=== PATIENT | female | born 1950 | race Hispanic/Latino ===

== ENCOUNTER 2016-10-07 20:30 | Emergency (ER) | payer MEDICARE ==
[2016-10-07 20:30] VITALS: BMI 30.1
[2016-10-07 20:51] VITALS: RESP 18; O2SAT 99
--- NOTE | 2016-10-07 21:48 | ED PDOC ---
Arrival/HPI <Slade Edwards - Last Filed: 10/08/16 01:03> - General Historian: Patient - History of Present Illness Time/Duration: 24 hours Symptom Onset: Gradual Symptom Course: Unchanged Activities at Onset: Rest Context: Home <Francine Garber - Last Filed: 10/08/16 03:35> - General Chief Complaint: Lower Extremity Problem/Injury Time Seen by Provider: 10/07/16 21:39 - History of Present Illness Narrative History of Present Illness (Text): 10/07/16 21:40 Raina Nicholson is a 66 year old female, whose past medical history includes stents in bilateral lower legs, HTN, who presents to the emergency department complaining of a stinging sensation to the bottom of her right foot with associated numbness and tingling to her toes since yesterday. Patient notes that a 2x4 wooden plank fell on her right foot last week but over the past few days the pain in the legs developed. pt c/o or anesthesias to the toes. She is complaining of worsening calf pain and cramping up the leg. Patient states that her pain worsens upon exertion, especially walking. Patient states the pain is still present while at rest but not as severe. Patient states she has scheduled an appointment with Dr. Jeremias Teran for next week. Patient denies any other complaints at this time. (Francine Garber) Past Medical History - Provider Review Nursing Documentation Reviewed: Yes - Travel History Have you recently traveled outside [place] w/in the past 3 mons?: No - Cardiac Hx Cardiac Disorders: Yes Hx [place]: Yes (14 yrs ago) Hx Hypertension: Yes Hx Peripheral Vascular Disease: Yes - Pulmonary Hx Respiratory Disorders: No Hx Chronic Obstructive Pulmonary Disease (COPD): Yes - Neurological Hx Neurological Disorder: No - HEENT Hx HEENT Disorder: No - Renal Hx Renal Disorder: No - Endocrine/Metabolic Hx Endocrine Disorders: Yes Hx Hypothyroidism: Yes - Hematological/Oncological Hx Blood Disorders: No - Integumentary Hx Dermatological Disorder: No - Musculoskeletal/Rheumatological Hx Musculoskeletal Disorders: No Hx Falls: No - Gastrointestinal Hx Gastrointestinal Disorders: No - Genitourinary/Gynecological Hx Genitourinary Disorders: No - Psychiatric Hx Psychophysiologic Disorder: No Hx Depression: No Hx Emotional Abuse: No Hx Physical Abuse: No Hx Substance Use: No - Past Surgical History Past Surgical History: No Previous - Surgical History Hx Angiogram: Yes (RIGHT 2012; BIN 10/02/13; LEFT 01/04/14) Hx Appendectomy: Yes Hx Cardiac Catheterization: Yes Hx Cholecystectomy: Yes (1968) Other/Comment: R femoral pop bypass - Anesthesia Hx Anesthesia: Yes Hx Anesthesia Reactions: No Hx Malignant Hyperthermia: No - Suicidal Assessment Feels Threatened In Home Enviroment: No <Francine Garber - Last Filed: 10/08/16 03:35> Family/Social History - Physician Review Nursing Documentation Reviewed: Yes Family/Social History: No Known Family HX Smoking Status: Heavy Smoker > 10 Cigarettes Daily Hx Alcohol Use: No Hx Substance Use: No <Francine Garber - Last Filed: 10/08/16 03:35> Allergies/Home Meds <Slade Edwards - Last Filed: 10/08/16 01:03> <Francine Garber - Last Filed: 10/08/16 03:35> Allergies/Adverse Reactions: Allergies aspirin [From Soma Compound] Allergy (Verified 10/07/16 20:53) RASH carisoprodol [From Soma Compound] Allergy (Verified 10/07/16 20:53) RASH Home Medications: Home Meds Medication Instructions Recorded Confirmed Celecoxib [CeleBREX] 200 mg PO DAILY 10/07/16 10/07/16 Cilostazol [Pletal] 100 mg PO BID 10/07/16 10/07/16 Clopidogrel [Plavix] 75 mg PO DAILY 10/07/16 10/07/16 Gabapentin [Neurontin] 600 mg PO BID 10/07/16 10/07/16 Levothyroxine Sodium [Unithroid] 100 mcg PO DAILY 10/07/16 10/07/16 Nabumetone [Relafen] 500 mg PO BID 10/07/16 10/07/16 Simvastatin 40 mg PO DAILY 10/07/16 10/07/16 Valsartan [Diovan] 80 mg PO DAILY 10/07/16 10/07/16 Review of Systems - Review of Systems Constitutional: absent: Fevers, Night Sweats Eyes: absent: Vision Changes ENT: absent: Hearing Changes Respiratory: absent: SOB, Cough Cardiovascular: absent: Chest Pain Gastrointestinal: absent: Abdominal Pain Genitourinary Female: absent: Dysuria Musculoskeletal: Arthralgias, Other (stinging to bottom of right foot; numbness and tingling to toes) Skin: absent: Rash Neurological: absent: Headache, Dizziness Psychiatric: absent: Anxiety, Depression <Francine Garber - Last Filed: 10/08/16 03:35> Physical Exam Vital Signs Reviewed: Yes Temperature: Afebrile Blood Pressure: Hypertensive Pulse: Regular Respiratory Rate: Normal Mental Status: Positive for: Alert and Oriented X 3 - Systems Exam Head: Present: Atraumatic Neck: Present: Normal Range of Motion Respiratory/Chest: Present: Clear to Auscultation Cardiovascular: Present: Regular Rate and Rhythm Abdomen: No: Tenderness Lower Extremity: Present: CALF TENDERNESS, NORMAL PULSES, Normal ROM, Tenderness , Capillary Refill < 2 s. No: Swelling, Erythema, Deformity, Temperature Abnormalties, Neurovascularly Intact (no palpable pulses in the feet bilaterally ; no pulses present via doppler.) Neurological: Present: GCS=15, Speech Normal Skin: Present: Warm, Dry, Normal Color. No: Rashes Psychiatric: Present: Alert, Oriented x 3 <Francine Garber - Last Filed: 10/08/16 03:35> Vital Signs Temp Pulse Resp BP Pulse Ox 10/08/16 00:46 98.4 F 70 18 177/81 H 99 10/07/16 22:37 75 18 150/78 99 10/07/16 20:47 98.3 F 71 18 151/74 H 99 Medical Decision Making <Slade Edwards - Last Filed: 10/08/16 01:03> <Francine Garber - Last Filed: 10/08/16 03:35> ED Course and Treatment: 10/08/16 03:18 66yr old female with claudication and rest pain in the right foot that has worsened over the past 2 days. arterial duplex b/l lower legs; foot right; no fracture dr. teran called to discuss arterial duplex results with dr. edwards; pt with bilateral SFA occulsions. pt offered admission to the hospital for interventional treatment. pt states she can stay in the hospital because she needs to do some things at home. I have advised the patient that she should remain in the hospital for admission and treatment of her condition. i have advised the patient of risk of , disability, loss of limb, sepsis, worsening of condition. this was discussed with patient and her brother at bedside. Pt states she understands the risks and will return when she can. Patient has been advised to not leave the emergency room but has decided to go AGAINST MEDICAL ADVICE. The patient possesses capacity to make decisions and has voiced understanding to all my warnings of potential worsening of the condition for which medical care was sought. I have discussed all known and potential risks and consequences to the patient leaving AGAINST MEDICAL ADVICE. Patient is leaving against medical advise. AMA form signed. witness by EMANUEL sebastian. impression; leg pain, arterial occlusion AMA return if you wish to continue your care RETURN IMMEDIATELY IF SYMPTOMS WORSEN,PERSIST OR IF NEW SYMPTOMS DEVELOP. ( Francine Garber) - RAD Interpretation Radiology Orders: 10/07/16 22:20 LOWER EXT ART NON-INV COMPL [US] Stat 10/07/16 23:59 FOOT RIGHT 3 VIEWS ROUTINE [RAD] Stat - PA / OVEN LABORER / Resident Statement MD/DO has reviewed & agrees with the documentation as recorded. MD/DO has examined the patient and agrees with the treatment plan. <Slade Edwards - Last Filed: 10/08/16 01:03> Disposition/Present on Arrival <Slade Edwards - Last Filed: 10/08/16 01:03> - Present on Arrival Any Indicators Present on Arrival: No History of DVT/PE: No History of Uncontrolled Diabetes: No Urinary Catheter: No History of Decub. Ulcer: No History Surgical Site Infection Following: None - Disposition Have Diagnosis and Disposition been Completed?: Yes Disposition Time: 01:15 Patient Plan: Other (ama) <Francine Garber - Last Filed: 10/08/16 03:35> - Disposition Diagnosis: PVD (peripheral vascular disease) with claudication, Leg pain, Arterial occlusion Disposition: AGAINST MEDICAL ADVICE Condition: CRITICAL Referrals: Brook Gee MD [Primary Care Provider] - Follow up with primary Forms: [employer] ([place]ian)
[2016-10-08 00:50] VITALS: BP 177/81; PULSE 70; TEMP 98.4
--- NOTE | 2016-10-08 08:08 | RAD ---
PROCEDURE: Right Foot Radiographs. HISTORY: foot injury COMPARISON: None. FINDINGS: BONES: No evidence of acute displaced fracture. JOINTS: No evidence of dislocation. Mild arthritic changes. SOFT TISSUES: Mild soft tissue swelling. OTHER FINDINGS: None. IMPRESSION: No evidence of acute fracture or dislocation.
--- NOTE | 2016-10-08 08:46 | US ---
PROCEDURE: Lower extremity CIPRIANO exam HISTORY: Peripheral vascular disease with ischemic pain. Previous lower extremity stents. PHYSICIAN(S): Jeremias Talbot MD. FINDINGS: The resting CIPRIANO's are severely abnormal: Right, 0.39 and left, 0.47 The brachial systolic pressures are symmetric. The high thigh pressures and waveforms are relatively normal. There is a 70 mm gradient across the right thigh and a 44 mm gradient across the left thigh. The findings are consistent with bilateral SFA occlusive disease. There is a 31 mm gradient across the left knee. The ankle and metatarsal waveforms are nearly flat. This is consistent with left popliteal, trifurcation, and/ or tibial disease. There is significant right tibial disease. IMPRESSION: 1. Severely abnormal ABIs at rest. 2. Bilateral SFA occlusive disease. 3. Left popliteal, trifurcation, and/ or tibial disease 4. Bilateral tibial disease. 5. If clinically indicated, further evaluation with a CTA, MRA, or conventional arteriogram can be performed.
== END 2016-10-08 01:15 | disposition left against medical advice (07) ==
LOC: ED 20:30
DX: I73.9 Peripheral vascular disease, unspecified (principal); I74.9 Embolism and thrombosis of unspecified artery; M79.604 Pain in right leg

== ENCOUNTER 2016-10-10 15:31 | Inpatient (IN) | payer MEDICARE, OTHER ==
[2016-10-10] MEDS ORDERED: Sodium Chloride 0.9% 500 ML IV STA (16:02)
[2016-10-10 16:23] LABS: VENOUS BLOOD GAS BASE EXCESS 2.5 mmol/L (0.0-2.0)
[2016-10-10 16:37] LABS: ALB/GLOB RATIO 1.2 (1.1-1.8); ALKALINE PHOSPHATASE 113 U/L (38-133); ALT/SGPT 29 U/L (7-56); AST/SGOT 28 U/L (15-39); BILIRUBIN,TOTAL 0.4 mg/dL (0.2-1.3); BLOOD UREA NITROGEN 8 mg/dL (7-21); CALCIUM 9.5 mg/dL (8.4-10.5); CARBON DIOXIDE 26 mmol/L (21-33); CHLORIDE 105 mmol/L (98-107); GFR AFRICAN-AMERICAN > 60; GLUCOSE,RANDOM 127 mg/dL (70-110); POTASSIUM 3.3 mmol/L (3.6-5.0); SODIUM 141 mmol/L (132-148)
[2016-10-10 16:44] LABS: BASO # 0.05 K/mm3 (0.0-2.0); BASO % 0.4 % (0.0-3.0); EOS # 0.2 (0.0-0.7); EOS % 1.7 % (1.5-5.0); GRAN # 9.68 (1.4-6.5); GRAN % 68.4 % (50.0-68.0); HEMATOCRIT 46.5 % (36.0-48.0); LYMPH # 3.2 (1.2-3.4); LYMPH % 22.9 % (22.0-35.0); MEAN CELL VOLUME 92.8 fl (80.0-105.0); MEAN CORPUSCULAR HEMOGLOBIN 32.9 pg (25.0-35.0); MEAN CORPUSCULAR HGB CONC 35.5 g/dl (31.0-37.0); MEAN PLATELET VOLUME 9.5 fl (7.0-11.0); MONO # 0.9 (0.1-0.6); MONO % 6.6 % (1.0-6.0); RED CELL DISTRIBUTION WIDTH 13.1 % (11.5-14.5); WHITE BLOOD COUNT 14.2 10^3/ul (4.5-11.0)
[2016-10-10 16:50] LABS: INR 0.97 (0.93-1.08); PARTIAL THROMBOPLASTIN TIME 28.5 Seconds (23.7-30.8)
--- NOTE | 2016-10-10 17:07 | RAD ---
HISTORY: med clearance. pre op COMPARISON: No prior. FINDINGS: LUNGS: No active pulmonary disease. PLEURA: No significant pleural effusion identified, no pneumothorax apparent. CARDIOVASCULAR: Normal. OSSEOUS STRUCTURES: No significant abnormalities. VISUALIZED UPPER ABDOMEN: Normal. OTHER FINDINGS: None. IMPRESSION: No active disease.
--- NOTE | 2016-10-10 18:01 | ED PDOC ---
Arrival/HPI - General Historian: Patient - History of Present Illness Time/Duration: Other (4 days) Symptom Onset: Gradual Symptom Course: Worsening Quality: Stabbing, Throbbing Severity Level: 7, 10 - General Chief Complaint: Lower Extremity Problem/Injury Time Seen by Provider: 10/10/16 15:55 - History of Present Illness Narrative History of Present Illness (Text): 10/10/16 17:58 66-year-old female presents today with ischemic foot. Patient states she woke up this morning and she noticed there was a change in color in the foot. Patient states she was in the hospital 2 days ago and signed herself out AGAINST MEDICAL ADVICE knowing that there was an arterial occlusion in the right leg. Patient states at that time she could not stay in the hospital because she had to babysit her granddaughter the next day. Patient states she spoke with Dr. Jeremias Teran and scheduled an appointment for tomorrow at 5 PM. Patient states that she had a previous appointment scheduled for but he was able to move the appointment to tomorrow. Patient states the pain has been worsening since her visit and she noticed a discoloration to the toes this morning. c/o of paresthesias. Patient states the pain radiates from the anterior lower leg into the foot. Patient states she has a history of bilateral stents that were placed approximately 3 years ago. Patient states her surgeon has retired since she's been looking for a new surgeon and found Jeremias Teran but has not had her first appointment with him yet. (Francine Garber) Past Medical History - Provider Review Nursing Documentation Reviewed: Yes - Travel History Have you recently traveled outside [place] w/in the past 3 mons?: No - Reproductive Menopause: Yes - Cardiac Hx Cardiac Disorders: Yes Hx [place]: Yes (14 yrs ago) Hx Hypertension: Yes Hx Peripheral Vascular Disease: Yes - Pulmonary Hx Respiratory Disorders: No Hx Chronic Obstructive Pulmonary Disease (COPD): Yes - Neurological Hx Neurological Disorder: No - HEENT Hx HEENT Disorder: No - Renal Hx Renal Disorder: No - Endocrine/Metabolic Hx Endocrine Disorders: Yes Hx Hypothyroidism: Yes - Hematological/Oncological Hx Blood Disorders: No - Integumentary Hx Dermatological Disorder: No - Musculoskeletal/Rheumatological Hx Musculoskeletal Disorders: No Hx Falls: No - Gastrointestinal Hx Gastrointestinal Disorders: No - Genitourinary/Gynecological Hx Genitourinary Disorders: No - Psychiatric Hx Psychophysiologic Disorder: No Hx Depression: No Hx Emotional Abuse: No Hx Physical Abuse: No Hx Substance Use: No - Past Surgical History Past Surgical History: No Previous - Surgical History Hx Angiogram: Yes (RIGHT 2012; BIN 10/02/13; LEFT 01/04/14) Hx Appendectomy: Yes Hx Cardiac Catheterization: Yes Hx Cholecystectomy: Yes (1968) Other/Comment: R femoral pop bypass - Anesthesia Hx Anesthesia: Yes Hx Anesthesia Reactions: No Hx Malignant Hyperthermia: No - Suicidal Assessment Feels Threatened In Home Enviroment: No Family/Social History - Physician Review Nursing Documentation Reviewed: Yes Family/Social History: Unknown Family HX Smoking Status: Heavy Smoker > 10 Cigarettes Daily Hx Alcohol Use: No Hx Substance Use: No Allergies/Home Meds Allergies/Adverse Reactions: Allergies aspirin [From Soma Compound] Allergy (Verified 10/10/16 15:46) RASH carisoprodol [From Soma Compound] Allergy (Verified 10/10/16 15:46) RASH Home Medications: Home Meds Medication Instructions Recorded Confirmed Celecoxib [CeleBREX] 200 mg PO DAILY 10/07/16 10/10/16 Cilostazol [Pletal] 100 mg PO BID 10/07/16 10/10/16 Clopidogrel [Plavix] 75 mg PO DAILY 10/07/16 10/10/16 Gabapentin [Neurontin] 600 mg PO BID 10/07/16 10/10/16 Levothyroxine Sodium [Unithroid] 100 mcg PO DAILY 10/07/16 10/10/16 Nabumetone [Relafen] 500 mg PO BID 10/07/16 10/10/16 Simvastatin 40 mg PO DAILY 10/07/16 10/10/16 Valsartan [Diovan] 80 mg PO DAILY 10/07/16 10/10/16 Review of Systems - Review of Systems Constitutional: absent: Fatigue, Fevers Respiratory: absent: SOB, Cough Cardiovascular: absent: Chest Pain, Palpitations Gastrointestinal: absent: Abdominal Pain, Nausea, Vomiting Musculoskeletal: Arthralgias. absent: Back Pain Skin: absent: Skin Lesions, Laceration, Abscess, Cellulitis Neurological: absent: Headache Psychiatric: absent: Anxiety, Depression, Suicidal Ideation Physical Exam Vital Signs Reviewed: Yes Temperature: Afebrile Blood Pressure: Normal Pulse: Regular Respiratory Rate: Normal Appearance: Positive for: Well-Appearing, Non-Toxic, Comfortable Pain Distress: None Mental Status: Positive for: Alert and Oriented X 3 - Systems Exam Head: Present: Atraumatic Mouth: Present: Moist Mucous Membranes Respiratory/Chest: Present: Clear to Auscultation Cardiovascular: Present: Regular Rate and Rhythm Lower Extremity: Present: Normal ROM, Tenderness, Temperature Abnormalties, Other (right foot; pale, cold foot, posterior tibial or dorsalis pedis pulse is not present by palpation or by Doppler. Popliteal pulse is present via Doppler.) . No: CALF TENDERNESS, NORMAL PULSES, Swelling, Erythema, Deformity, Capillary Refill < 2 s Neurological: Present: GCS=15, Speech Normal Skin: Present: Dry. No: Rashes Psychiatric: Present: Alert, Oriented x 3 Medical Decision Making ED Course and Treatment: 10/10/16 18:07 66yr old female with ischemic right foot. case discussed with dr. Jeremias teran; advised him of acute change in foot. pt states patient with chronic vascular disease, still smoking. admit to hospitalist with heparin, but if true concern for acute ischemia transfer to facility with vascular surgeon. cbc: wbc: 14.2 Cmp: wnl pt/ptt type and screen cxr; wnl ekg; NSR 72b/m normal axis, no st elevations. CIPRIANO reviewed from previous visit; IMPRESSION:1. Severely abnormal ABIs at rest. 2. Bilateral SFA occlusive disease. 3. Left popliteal, trifurcation, and/ or tibial disease 4. Bilateral tibial disease. we have no vascular marketing operations associate; [place] [facility] [place] dr enrique [place] [facility] [place]. Does not feel that this is an appropriate transfer. dr. thorpe discussed case with vascular surgeon at [facility]; case discussed with dr. Vitale (Interventional Radiologist); advised do CTA runoff and start heparin. CTA runoff ordered. heparin bolus started. heparin drip ordered. dr. thorpe discussed case with Dr. Rutledge in depth who will see patient at [facility]. case discussed with dr. lam covering for dr. townsend; accepts admission. case discussed with resident dr. hernandez; discussed the case in depth; he was advised to f/u on the imaging and alert dr. Pierce vitale and Dr. rutledge the results. impression; ischemic foot admit med/surg (Francine Garber) 10/10/16 18:07 Right foot examined by me. Patient has a cold right foot. No pulse appreciate on palpation nor with doppler. Poor cap refill. Patient has full strength of her food and sensation intact. ERIC Garber discussed case with Dr. Teran and Dr. Vitale. I discussed case with [facility] for possible transfer for vascular intervention. 10/10/16 [address] Rutledge, Surgery, who states he will come and evaluate patient and agrees to heparin treatment. 10/10/16 20:[address] Vitale, Interventional Radiologist, who reviewed images. He believes there is still flow and that heparin is appropriate at this time. He will discuss possible interventions with Dr. Teran tomorrow. Dr. Rutledge came to see patient and agrees with plan to admit patient to Medicine. ERIC Garber discussed case with Dr. Lam who is covering for [facility]. Case discussed with Resident covering for [place] who came to see patient and placed ordered. Patient understands plan and agrees with admission. (Jose Thorpe) - Lab Interpretations Lab Results: 10/10/16 16:09 10/10/16 16:09 Lab Results 10/10/16 16:09: Blood Type O NEGATIVE, Antibody Screen Negative, BBK History Checked Patient has bt 10/10/16 16:09: pO2 128 H, VBG pH 7.40, VBG pCO2 45.0, VBG HCO3 27.9, VBG Total CO2 29.3 H, VBG O2 Sat (Calc) 100.9 H, VBG Base Excess 2.5 H, VBG Potassium 3.6 , Sodium 140.0, Chloride 104.0, Glucose 128 H, Lactate 1.3, FiO2 21.0, Venous Blood Potassium 3.6 10/10/16 16:09: PT 10.5, INR 0.97, APTT 28.5 10/10/16 16:09: WBC 14.2 H, RBC 5.01, Hgb 16.5 H, Hct 46.5, MCV 92.8, MCH 32.9, MCHC 35.5, RDW 13.1, Plt Count 360, MPV 9.5, Gran % 68.4 H, Lymph % (Auto) 22.9 , Smyth % (Auto) 6.6 H, Eos % (Auto) 1.7, Baso % (Auto) 0.4, Gran # 9.68 H, Lymph # 3.2, Smyth # 0.9 H, Eos # 0.2, Baso # 0.05 10/10/16 16:09: Sodium 141, Chloride 105, Potassium 3.3 L, Carbon Dioxide 26, Anion Gap 13, BUN 8, Creatinine 0.7, Est GFR ( Amer) > 60, Est GFR (Non- Af Amer) > 60, Random Glucose 127 H, Calcium 9.5, Total Bilirubin 0.4, AST 28, ALT 29, Alkaline Phosphatase 113, Total Protein 8.0, Albumin 4.4, Globulin 3.7, Albumin/Globulin Ratio 1.2 - RAD Interpretation Radiology Orders: 10/10/16 16:43 CHEST PORTABLE [RAD] Stat 10/10/16 18:50 ANGIOGRAPHY ABD ILEOFEM RUNOFF [CT] Stat - Medication Orders Current Medication Orders: Heparin Sodium/Dextrose (Heparin 25,000 Units/250ml In D5w) 25,000 units in 250 mls @ 16.329 mls/hr IV .[id number] PRN; Protocol; 18 UNITS/KG/HR PRN Reason: ADJUST RATE PER PROTOCOL Last Admin: 10/10/16 19:40 Dose: 16.329 mls/hr Sodium Chloride (Sodium Chloride 0.9%) 1,000 mls @ 100 mls/hr IV .Q10H FAWAD Last Admin: 10/10/16 19:57 Dose: 100 mls/hr Discontinued Medications Heparin Sodium (Porcine) (Heparin) 5,000 units IV ONCE ONE PRN Reason: Protocol Stop: 10/10/16 18:52 Last Admin: 10/10/16 19:38 Dose: 5,000 units Sodium Chloride (Sodium Chloride 0.9%) 500 mls @ 999 mls/hr IV .Q31M STA Stop: 10/10/16 16:32 Last Admin: 10/10/16 16:20 Dose: 999 mls/hr Iohexol (Omnipaque 350 150 Ml) Confirm Administered Dose 150 ml .ROUTE .STK-MED ONE Stop: 10/10/16 18:56 Disposition/Present on Arrival - Present on Arrival Any Indicators Present on Arrival: No History of DVT/PE: No History of Uncontrolled Diabetes: No Urinary Catheter: No History of Decub. Ulcer: No History Surgical Site Infection Following: None - Disposition Have Diagnosis and Disposition been Completed?: Yes Disposition Time: 19:20 Patient Plan: Admission - Disposition Diagnosis: Ischemic foot Disposition: HOSPITALIZED Patient Problems: Current Active Problems Problem Status Onset Ischemic foot Acute Condition: FAIR
[2016-10-10] MEDS: Heparin 25,000units in D5W 25,000 UNITS/250 ML BAG IV PRN (19:40)
[2016-10-10] MEDS: Sodium Chloride 0.9% 1,000 ML IV SCH (19:57)
--- NOTE | 2016-10-10 21:03 | CP.PCM.HP ---
History of Present Illness - History of Present Illness History of Present Illness: 66 year old female with a past medical history significant for CAD with GA in 2000, tobacco abuse, hypothyroidism, and s/p bilateral femoral-popliteal bypass in 2013 who presents with acutely worsening RLE pain that woke her up today at 6 AM in the morning. The pain is located in the right anterior montes and extends into the foot, namely digits 2-5. She states the affected area has associated paresthesias, has changed colors, blue, and that the pain is constant , and only subsides transiently when she hangs her (right) leg off the bed and dangles the foot. She denies any C/P, SOB, focal weakness/numbness in any other extremities, headache, palpitations, diarrhea, nausea, or vomiting. Important to note, she was admitted last for similar symptoms and found to have an arterial clot, but the patient left AMA. Today, she states she was suppose to see a Dr. Talbot tomorrow for evaluation of the RLE pain; however, given the severity of the pain, associated numbness, and pallor; she thought it would be flores to come in immediately to the [facility] ED for evaluation. PMH: dyslipidemia, PAD, tobacco abuse, hypothyroidism, peripheral neuropathy PSH: bilateral femoral-popliteal bypass graft in 2013, cholecystectomy Allergies: Aspirin, Carisoprodol Medications: Reviewed Social History: 75 pack year history of smoking, and still smoking, retired, lives with daughter and grandson. Present on Admission - Present on Admission Any Indicators Present on Admission: Yes History of DVT/PE: Yes Review of Systems - Constitutional Constitutional: absent: Anorexia, Chills, Night Sweats - EENT Eyes: absent: Blurred Vision, Loss of Peripheral Vision, Photophobia Ears: absent: Ear Pain, Tinnitus, Disequilibrium Nose/Mouth/Throat: absent: Nose Pain, Post Nasal Drip, Change in Voice - Cardiovascular Cardiovascular: absent: Chest Pain, Diaphoresis, Dyspnea, Irregular Heart Rhythm - Respiratory Respiratory: absent: Cough, Dyspnea, Hemoptysis, Excessive Mucous Production - Gastrointestinal Gastrointestinal: absent: Constipation, Diarrhea, Dysphagia, Heartburn - Genitourinary Genitourinary: absent: Difficulty Urinating, Dysuria, Urinary Incontinence - Musculoskeletal Additional comments: RLE pain, numbness, and color changes - Neurological Neurological: Sensory Deficit (RLE), Tingling (RLE) - Psychiatric Psychiatric: absent: Change in Appetite, Confusion, Depression - Endocrine Endocrine: absent: Change in Libido, Deepening of Voice, Increase in Ring/Shoe/ Hat Size - Hematologic/Lymphatic Hematologic: absent: Easy Bleeding, Easy Bruising Past Patient History - Past Medical History & Family History Past Medical History?: Yes - Past Social History Smoking Status: Heavy Smoker > 10 Cigarettes Daily - CARDIAC Hx Cardiac Disorders: Yes Hx Heart Attack: Yes (14 yrs ago) Hx Hypertension: Yes Hx Peripheral Vascular Disease: Yes - PULMONARY Hx Respiratory Disorders: No Hx Chronic Obstructive Pulmonary Disease (COPD): Yes - NEUROLOGICAL Hx Neurological Disorder: No - HEENT Hx HEENT Problems: No - RENAL Hx Chronic Kidney Disease: No - ENDOCRINE/METABOLIC Hx Endocrine Disorders: Yes Hx Hypothyroidism: Yes - HEMATOLOGICAL/ONCOLOGICAL Hx Blood Disorders: No - INTEGUMENTARY Hx Dermatological Problems: No - MUSCULOSKELETAL/RHEUMATOLOGICAL Hx Musculoskeletal Disorders: No Hx Falls: No - GASTROINTESTINAL Hx Gastrointestinal Disorders: No - GENITOURINARY/GYNECOLOGICAL Hx Genitourinary Disorders: No - PSYCHIATRIC Hx Psychophysiologic Disorder: No Hx Depression: No Hx Emotional Abuse: No Hx Physical Abuse: No Hx Substance Use: No - SURGICAL HISTORY Hx Angiogram: Yes (RIGHT 2012; BIN 10/02/13; LEFT 01/04/14) Hx Appendectomy: Yes Hx Cardiac Catheterization: Yes Hx Cholecystectomy: Yes (1968) Other/Comment: R femoral pop bypass - ANESTHESIA Hx Anesthesia: Yes Hx Anesthesia Reactions: No Hx Malignant Hyperthermia: No Meds Allergies/Adverse Reactions: Allergies Allergy/AdvReac Type Severity Reaction Status Date / Time aspirin [From Soma Compound] Allergy RASH Verified 10/10/16 15:46 carisoprodol Allergy RASH Verified 10/10/16 15:46 [From Soma Compound] Physical Exam - Constitutional Appears: Non-toxic, Older Than Stated Age - Head Exam Head Exam: ATRAUMATIC, NORMOCEPHALIC - Eye Exam Eye Exam: EOMI, Normal appearance Pupil Exam: NORMAL ACCOMODATION, PERRL - ENT Exam ENT Exam: Mucous Membranes Moist, Normal Oropharynx - Neck Exam Neck exam: Positive for: Normal Inspection. Negative for: Thyromegaly - Respiratory Exam Respiratory Exam: Clear to Auscultation Bilateral, NORMAL BREATHING PATTERN - Cardiovascular Exam Cardiovascular Exam: RRR, +S1, +S2 - GI/Abdominal Exam GI & Abdominal Exam: Normal Bowel Sounds, Soft. absent: Pulsatile Mass, Rebound - Extremities Exam Additional comments: Right lower extremity is cold, blue in appearance from the montes down, 2-5 digits cyanotic, decreased capillary refill, posterior and dorsalis pedis pulses non palpable. - Back Exam Back exam: absent: CVA tenderness (L), CVA tenderness (R) - Neurological Exam Neurological exam: Alert, CN II-XII Intact, Oriented x3 - Psychiatric Exam Psychiatric exam: Anxious, Normal Affect, Normal Mood - Skin Skin Exam: Cyanosis (RLE), Pallor (RLE) Results - Vital Signs Recent Vital Signs: Last Vital Signs Temp 98.0 F 10/10/16 18:33 Pulse 91 H 10/10/16 20:02 Resp 18 10/10/16 20:02 BP 138/63 10/10/16 20:02 Pulse Ox 95 10/10/16 20:02 - Labs Result Diagrams: 10/10/16 21:30 10/10/16 16:09 Assessment & Plan - Assessment and Plan (Free Text) Assessment: 1)66 yo vasculopathy with bilateral femoral popliteal grafts, 78 pack year history of smoking, CAD with history of GA in 1999, who presents with RLE pain. Patient was scheduled to see Dr. Jeremias Talbot tomorrow, but due to the severity of symptoms, color changes, numbness, and pallor in the RLE, she came to ED. Patient started on heparin drip, vascular surgery and interventional radiology consulted. CT angiography of the abdominal and pelvis with runoff to the lower extremities with IV contrast reveals the following, as interpreted by the radiologist: - Occlusion of the bilateral femoropopliteal bypass grafts. - Occlusion of the left superficial femoral artery. - Left popliteal artery is partially reconstituted by collateral vessels, but occludes at the level of the upper calf. - Left calf arteries are reconstituted by collateral vessels. There is 2 vessel runoff to the left foot, via the anterior tibial and peroneal arteries. - Right superficial femoral artery is partially patent, but is small in size, and occludes at the level of the mid thigh. - Occlusion of the right popliteal artery. - The right peroneal vein is reconstituted in the right calf, but occludes in the distal calf. There is NO runoff to the right foot. - At least 50% stenosis of the of the right common iliac artery. Plan: 1) Right LE pain secondary to PVD - See details of CT above - Vascular surgery and Interventional Radiology consulted - Patient is NPO, except for medications - Monitor distal pulses q4h - Vitals q8h - Heparin drip - PT/PTT per protocol - Analgesia with Morphine 2 mg IVP q4h PRN, Percocet PRN, Tylenol PRN - Antilipemic, Atorvastatin 20 mg PO DIN - C/W home Cilostazol 100 mg PO BID - Holding/stopped home NSAIDs 2) CAD - C/W Plavix 75 mg PO daily - C/W Atorvastatin as detailed above, dual benefit in this patient - C/W Losartan 50 mg PO daily 3) Peripheral neuropathy, most likely secondary to Peripheral Vascular Disease - C/W Neurontin 600 mg BID 4) Hypothyroidism C/W Levothyroxine 100 mcg PO daily 5) GI prophylaxis: Protonix 40 mg ACB 6) Hypokalemia - Initial Potassium of 3.3 - 40 mEq given PO, will continue to monitor with daily CMP - Date & Time Date: 10/10/16 Time: 22:35
[2016-10-10] MEDS ORDERED: Non Formulary Medication (Celecoxib [Celebrex] 200 MG) PO PRN (21:06)
[2016-10-10] MEDS ORDERED: Oxycodone/Acetaminophen 5/325 mg Tab PO PRN ×2 (21:13→21:54)
--- NOTE | 2016-10-10 21:22 | CT ---
EXAM: CT Angiography Abdomen and Pelvis With Runoff to the Lower Extremities With Intravenous Contrast EXAM DATE/TIME: 10/10/2016 6:50 PM CLINICAL HISTORY: 66 years old, female; Signs and symptoms; Discoloration or erythema; Lower extremity; Right; Additional info: Right leg pain/? Ischemia TECHNIQUE: Axial computed tomographic angiography images of the abdomen, pelvis and lower extremities with intravenous contrast using CT angiography protocol. All CT scans at this facility use one or more dose reduction techniques, viz.: automated exposure control; ma/kV adjustment per patient size (including targeted exams where dose is matched to indication; i.e. head); or iterative reconstruction technique. MIP reconstructed images were created and reviewed. Coronal and sagittal reformatted images were created and reviewed. CONTRAST: 150 mL of omni 350 administered intravenously. COMPARISON: Recent lower extremity arterial ultrasound. FINDINGS: LOWER THORAX: No infiltrate seen in the lung bases. VASCULATURE: AORTA: Diffuse atherosclerotic disease of the abdominal aorta. No evidence of abdominal aortic aneurysm or dissection. CELIAC TRUNK AND MESENTERIC ARTERIES: No evidence of occlusion. RENAL ARTERIES: No evidence of occlusion. RIGHT ILIAC ARTERIES: Atherosclerotic plaque in the right common iliac artery, causing a stenosis of at least 50%. No occlusion. Scattered atherosclerotic disease of the right external iliac artery, with no evidence of occlusion. RIGHT FEMORAL/POPLITEAL ARTERIES: Atherosclerotic plaque of the right common femoral artery, with no evidence of occlusion. Right superficial femoral artery is patent, but is very small in size and irregular, and occludes at the upper level of the mid thigh. Right popliteal artery is occluded. Right profundofemoral artery is patent. RIGHT CALF/FOOT ARTERIES: There are collateral vessels which reconstitute the right peroneal artery, in the proximal calf. This vessel is small in size. The right anterior tibial and posterior tibial arteries are occluded. There is one vessel runoff to the right foot. LEFT ILIAC ARTERIES: Diffuse atherosclerotic disease of the left common iliac artery. No evidence of occlusion. Scattered atherosclerotic disease of the left external iliac artery, with no evidence of occlusion. LEFT FEMORAL/POPLITEAL ARTERIES: Atherosclerotic plaque in the left common femoral artery, with no evidence of occlusion. Left superficial femoral artery is occluded, likely on a chronic basis. Left profundofemoral artery is patent. There are collateral vessels in the left thigh, arising from profundofemoral artery branches which reconstitute part of the left popliteal artery, but this vessel occludes at the level of upper calf. LEFT CALF/FOOT ARTERIES: There are collateral vessels in the left calf, which reconstitute the left anterior tibial artery, tibioperoneal trunk, peroneal, and posterior tibial arteries arteries, at the level of the upper calf. The left posterior tibial artery is occluded at the level of the mid calf. There is 2 vessel runoff to the left foot via the tibial and peroneal arteries. OTHER FINDINGS: Bilateral femoropopliteal bypass grafts are visualized, and are occluded. ABDOMEN: LIVER: No acute abnormality of the liver identified. GALLBLADDER AND BILE DUCTS: No evidence of acute cholecystitis. PANCREAS: No evidence of acute pancreatitis. SPLEEN: No acute abnormality of the spleen identified. ADRENALS: No acute abnormality of the adrenal glands identified. KIDNEYS AND URETERS: No acute abnormality of the kidneys identified. STOMACH AND BOWEL: No acute abnormality identified APPENDIX: No findings to suggest acute appendicitis. PELVIS: BLADDER: No acute abnormality of the bladder is seen. REPRODUCTIVE:No acute abnormality of the uterus identified. No evidence of large adnexal masses. ABDOMEN, PELVIS and LOWER EXTREMITIES: INTRAPERITONEAL SPACE: 0 No significant fluid collection. No free air. BONES/JOINTS: No acute bony abnormality identified. SOFT TISSUES: No acute abnormality of the visualized soft tissues seen. LYMPH NODES: No evidence of diffuse lymphadenopathy. IMPRESSION: - Occlusion of the bilateral femoropopliteal bypass grafts. - Occlusion of the left superficial femoral artery. - Left popliteal artery is partially reconstituted by collateral vessels, but occludes at the level of the upper calf. - Left calf arteries are reconstituted by collateral vessels. There is 2 vessel runoff to the left foot, via the anterior tibial and peroneal arteries. - Right superficial femoral artery is partially patent, but is small in size, and occludes at the level of the mid thigh. - Occlusion of the right popliteal artery. - Right peroneal vein is reconstituted in the calf by collateral vessels. There is one vessel runoff to the right foot. - At least 50% stenosis of the of the right common iliac artery - See above for remaining findings.
[2016-10-10 21:37] LABS: BASO # 0.04 K/mm3 (0.0-2.0); BASO % 0.3 % (0.0-3.0); EOS # 0.4 (0.0-0.7); EOS % 2.6 % (1.5-5.0); GRAN # 9.5 (1.4-6.5); HEMATOCRIT 42.5 % (36.0-48.0); LYMPH # 3.7 (1.2-3.4); LYMPH % 25.8 % (22.0-35.0); MEAN CELL VOLUME 93.4 fl (80.0-105.0); MEAN CORPUSCULAR HEMOGLOBIN 32.5 pg (25.0-35.0); MEAN CORPUSCULAR HGB CONC 34.8 g/dl (31.0-37.0); MEAN PLATELET VOLUME 9.2 fl (7.0-11.0); MONO # 0.8 (0.1-0.6); MONO % 5.3 % (1.0-6.0); RED CELL DISTRIBUTION WIDTH 13.1 % (11.5-14.5); WHITE BLOOD COUNT 14.4 10^3/ul (4.5-11.0)
[2016-10-10 22:42] VITALS: BMI 30.4
[2016-10-11] MEDS: Morphine 2 mg/ml ISec IVP PRN ×2 (00:21→06:48)
[2016-10-11] MEDS ORDERED: Potassium Chloride 20 mEq ER Tab PO STA (00:59)
[2016-10-11] MEDS: Potassium Chloride 20 mEq ER Tab PO STA ×2 (01:07→01:15)
[2016-10-11] MEDS ORDERED: Pantoprazole 40 mg EC Tab PO SCH (07:30)
[2016-10-11 07:49] LABS: ALB/GLOB RATIO 1.1 (1.1-1.8); ALKALINE PHOSPHATASE 112 U/L (38-133); ALT/SGPT 23 U/L (7-56); AST/SGOT 20 U/L (15-39); BILIRUBIN,TOTAL 0.4 mg/dL (0.2-1.3); BLOOD UREA NITROGEN 8 mg/dL (7-21); CALCIUM 8.8 mg/dL (8.4-10.5); CARBON DIOXIDE 24 mmol/L (21-33); CHLORIDE 110 mmol/L (98-107); GFR AFRICAN-AMERICAN > 60; GLUCOSE,RANDOM 114 mg/dL (70-110); POTASSIUM 3.5 mmol/L (3.6-5.0); SODIUM 143 mmol/L (132-148); TOTAL PROTEIN 7.3 g/dL (5.8-8.3)
[2016-10-11] MEDS ORDERED: NABUMETONE 500 MG PO SCH (10:00)
--- NOTE | 2016-10-11 10:11 | CARD ---
APPROVED REPORT EKG Measurement Heart [id number] <Conclusion> Normal sinus rhythm Possible Anterior infarct, age undetermined Abnormal ECG
[2016-10-11] MEDS: Cilostazol 100 mg Tab UD PO SCH (10:23)
[2016-10-11] MEDS: Levothyroxine 100 MCG TAB PO SCH (10:25)
--- NOTE | 2016-10-11 13:30 | CP.PCM.PN ---
<Diallo Reid - Last Filed: 10/11/16 16:23> Subjective - Date & Time of Evaluation Date of Evaluation: 10/11/16 Time of Evaluation: 13:25 - Subjective Subjective: 66 year old female patient with PMHx of CAD with ND (1999), tobacco abuse, s/p bilateral femoral-popliteal bypass (2013) was seen at bedside this morning with attending Dr. Beaulieu. Patient explains that she started feeling pain to Right lower extremity just over a few days. She admits to heavy smoking even after the bypass surgery against medical advices. Patient denies of any pain to the Left lower extremity. Patient denies of any N/V/F/C or SOB today Objective - Vital Signs/Intake and Output Vital Signs (last 24 hours): Temp Pulse Resp BP Pulse Ox 98.6 F 68 20 132/89 97 10/11/16 08:57 10/11/16 10:25 10/11/16 08:57 10/11/16 10:25 10/11/16 08:57 Intake and Output: 10/11/16 10/11/16 06:59 18:59 Intake Total 0 Balance 0 - Medications Medications: Current Medications Acetaminophen (Tylenol 325mg Tab) 650 mg PO Q6H PRN PRN Reason: Pain, Mild (1-3) Atorvastatin Calcium (Lipitor) 20 mg PO DIN [facility] Cilostazol (Pletal) 100 mg PO BID [facility] Last Admin: 10/11/16 10:23 Dose: 100 mg Clopidogrel Bisulfate (Plavix) 75 mg PO DAILY [facility] Last Admin: 10/11/16 10:29 Dose: 75 mg Gabapentin (Neurontin) 600 mg PO BID [facility] PRN Reason: Protocol Last Admin: 10/11/16 10:25 Dose: 600 mg Heparin Sodium/Dextrose (Heparin 25,000 Units/250ml In D5w) 25,000 units in 250 mls @ 16.329 mls/hr IV .[id number] PRN; Protocol; 18 UNITS/KG/HR PRN Reason: ADJUST RATE PER PROTOCOL Last Titration: 10/11/16 04:46 Dose: 15 units/kg/hr, 13.608 mls/hr Sodium Chloride (Sodium Chloride 0.9%) 1,000 mls @ 100 mls/hr IV .Q10H [facility] Last Admin: 10/10/16 19:57 Dose: 100 mls/hr Levothyroxine Sodium (Synthroid) 100 mcg PO DAILY [facility] Last Admin: 10/11/16 10:25 Dose: 100 mcg Losartan Potassium (Cozaar) 50 mg PO DAILY [facility] Last Admin: 10/11/16 10:25 Dose: 50 mg Morphine Sulfate (Morphine) 2 mg IVP Q4H PRN PRN Reason: Pain, severe (8-10) Last Admin: 10/11/16 06:48 Dose: 2 mg Oxycodone/Acetaminophen (Percocet 5/325 Mg Tab) 1 tab PO Q6H PRN PRN Reason: Pain, moderate (4-7) Stop: 10/13/16 21:14 Last Admin: 10/11/16 10:24 Dose: 1 tab Pantoprazole Sodium (Protonix Ec Tab) 40 mg PO ACB [facility] Last Admin: 10/11/16 10:26 Dose: 40 mg - Labs Labs: 10/10/16 21:30 10/11/16 07:27 PT 10.5 Seconds (9.9-11.8) 10/10/16 16:09 INR 0.97 (0.93-1.08) 10/10/16 16:09 APTT 71.3 Seconds (23.7-30.8) H* 10/11/16 10:50 - Constitutional Appears: Well, Non-toxic, No Acute Distress - Head Exam Head Exam: ATRAUMATIC - Extremities Exam Additional comments: Bilateral lower extremities exam DERM Right: No open wound is noted. Slight dusky color change to the right lower extremity distal to ankle as compared to that of Left lower extremity. No erythema is noted. No drainage is noted. No sign of acute infection is noted. Left: No open wound is noted. No erythema is noted. No drainage is noted. No sign of acute infection is noted. VASC: Palpable DP and PT noted 1/4 bilaterally. Right: Capillary refill time is increased for all the digits to right foot >3 seconds. Skin cold to touch Left: [employer] for Left is <3 seconds to all digits. Skin warm to touch ORTHO: Slight atrophy noted to the musculature of the right lower extremity as compared to that of the Left. Pain on palpation to joints distal to right ankle. No pain is induced for left lower extremity. NEURO: Gross sensation diminished - Neurological Exam Neurological Exam: Alert, Awake, Oriented x3 - Psychiatric Exam Psychiatric exam: Normal Affect, Normal Mood - Skin Skin Exam: Normal Color, Warm Assessment and Plan - Assessment and Plan (Free Text) Assessment: 66 yo female patient with right lower extremity vascular insufficiency with ischemic changes Plan: Patient was seen, evaluated at bedside with attending Dr. Beaulieu Labs and vitals reviewed Discussed in detail with Dr. Starkey and Dr. Talbot for further plan of re- vascularization vs. anti-thrombotic Patient strongly advised to discontinue smoking No dressing was applied Podiatry will continue to follow in house <Renuka Beaulieu - Last Filed: 10/24/16 19:27> Objective - Vital Signs/Intake and Output Vital Signs (last 24 hours): Temp Pulse Resp BP Pulse Ox 98.7 F 74 21 118/84 99 10/17/16 12:00 10/17/16 16:00 10/17/16 16:00 10/17/16 14:28 10/17/16 00:01 - Labs Labs: 10/17/16 05:15 10/17/16 05:15 PT 12.5 Seconds (9.9-11.8) H 10/13/16 06:00 INR 1.16 (0.93-1.08) H 10/13/16 06:00 APTT 62.6 Seconds (23.7-30.8) H 10/17/16 05:15 Attending/Attestation - Attestation I have personally seen and examined this patient.: Yes I have fully participated in the care of the patient.: Yes I have reviewed all pertinent clinical information, including history, physical exam and plan: Yes
[2016-10-11] MEDS: Heparin 25,000units in D5W 25,000 UNITS/250 ML BAG IV PRN (14:18)
[2016-10-11] MEDS: Sodium Chloride 0.9% 1,000 ML IV SCH (15:05)
--- NOTE | 2016-10-11 15:13 | CP.PCM.CON ---
<David Goode - Last Filed: 10/11/16 15:19> History of Present Illness - History of Present Illness History of Present Illness: Surgery: Dr. Rutledge Reason for consult: possible LE ischemia HPI: Patient is a 66 y/o female w/ sig pmhx of bilateral fem pop bypass surgeries presents complaining of RLE worsening pain over the past 3 weeks. She states she hit her montes last week and noticed worsening swelling on the right. She denies numbness. She states she can ambulate freely around her home with some pain. She states she was supposed to have an appointment with Dr. Jeremias Talbot today but since she noticed the right leg swelling and some increased pain after blunt trauma she decided to come into ER. She states that she thought the right great toe appeared white in color but since hospital admission has returned to normal state. PMH: HLD, PAD, hypothyroid PSH: bilateral fem-pop bypass, cholecystectomy Social: lives at home and performs all ADLs, current chronic heavy smoker Review of Systems - Review of Systems All systems: reviewed and no additional remarkable complaints except Review of Systems: unless stated in HPI Past Patient History - Past Medical History & Family History Past Medical History?: Yes - Past Social History Smoking Status: Heavy Smoker > 10 Cigarettes Daily - CARDIAC Hx Cardiac Disorders: Yes Hx Heart Attack: Yes (14 yrs ago) Hx Hypertension: Yes Hx Peripheral Vascular Disease: Yes - PULMONARY Hx Respiratory Disorders: No Hx Chronic Obstructive Pulmonary Disease (COPD): Yes - NEUROLOGICAL Hx Neurological Disorder: No - HEENT Hx HEENT Problems: No - RENAL Hx Chronic Kidney Disease: No - ENDOCRINE/METABOLIC Hx Endocrine Disorders: Yes Hx Hypothyroidism: Yes - HEMATOLOGICAL/ONCOLOGICAL Hx Blood Disorders: No - INTEGUMENTARY Hx Dermatological Problems: No - MUSCULOSKELETAL/RHEUMATOLOGICAL Hx Musculoskeletal Disorders: No Hx Falls: No - GASTROINTESTINAL Hx Gastrointestinal Disorders: No - GENITOURINARY/GYNECOLOGICAL Hx Genitourinary Disorders: No - PSYCHIATRIC Hx Psychophysiologic Disorder: No Hx Depression: No Hx Emotional Abuse: No Hx Physical Abuse: No Hx Substance Use: No - SURGICAL HISTORY Hx Angiogram: Yes (RIGHT 2012; BIN 10/02/13; LEFT 01/04/14) Hx Appendectomy: Yes Hx Cardiac Catheterization: Yes Hx Cholecystectomy: Yes (1968) Other/Comment: R femoral pop bypass - ANESTHESIA Hx Anesthesia: Yes Hx Anesthesia Reactions: No Hx Malignant Hyperthermia: No Meds Allergies/Adverse Reactions: Allergies Allergy/AdvReac Type Severity Reaction Status Date / Time aspirin [From Soma Compound] Allergy RASH Verified 10/17/16 21:08 carisoprodol Allergy RASH Verified 10/17/16 21:08 [From Soma Compound] - Medications Medications: Current Medications Acetaminophen (Tylenol 325mg Tab) 650 mg PO Q6H PRN PRN Reason: Pain, Mild (1-3) Atorvastatin Calcium (Lipitor) 20 mg PO DIN [facility] Cilostazol (Pletal) 100 mg PO BID [facility] Last Admin: 10/11/16 10:23 Dose: 100 mg Clopidogrel Bisulfate (Plavix) 75 mg PO DAILY [facility] Last Admin: 10/11/16 10:29 Dose: 75 mg Gabapentin (Neurontin) 600 mg PO BID [facility] PRN Reason: Protocol Last Admin: 10/11/16 10:25 Dose: 600 mg Heparin Sodium/Dextrose (Heparin 25,000 Units/250ml In D5w) 25,000 units in 250 mls @ 16.329 mls/hr IV .[id number] PRN; Protocol; 18 UNITS/KG/HR PRN Reason: ADJUST RATE PER PROTOCOL Last Admin: 10/11/16 14:18 Dose: 15 units/kg/hr, 13.608 mls/hr Sodium Chloride (Sodium Chloride 0.9%) 1,000 mls @ 100 mls/hr IV .Q10H [facility] Last Admin: 10/11/16 15:05 Dose: 100 mls/hr Levothyroxine Sodium (Synthroid) 100 mcg PO DAILY [facility] Last Admin: 10/11/16 10:25 Dose: 100 mcg Losartan Potassium (Cozaar) 50 mg PO DAILY [facility] Last Admin: 10/11/16 10:25 Dose: 50 mg Morphine Sulfate (Morphine) 2 mg IVP Q4H PRN PRN Reason: Pain, severe (8-10) Last Admin: 10/11/16 06:48 Dose: 2 mg Oxycodone/Acetaminophen (Percocet 5/325 Mg Tab) 1 tab PO Q6H PRN PRN Reason: Pain, moderate (4-7) Stop: 10/13/16 21:14 Last Admin: 10/11/16 10:24 Dose: 1 tab Pantoprazole Sodium (Protonix Ec Tab) 40 mg PO ACB [facility] Last Admin: 10/11/16 10:26 Dose: 40 mg Physical Exam - Constitutional Appears: Non-toxic, No Acute Distress - Head Exam Head Exam: ATRAUMATIC, NORMOCEPHALIC - Eye Exam Eye Exam: EOMI, Normal appearance - ENT Exam ENT Exam: Mucous Membranes Moist - Respiratory Exam Respiratory Exam: NORMAL BREATHING PATTERN. absent: Respiratory Distress - Cardiovascular Exam Cardiovascular Exam: REGULAR RHYTHM. absent: Tachycardia - Extremities Exam Additional comments: bilateral femoral pulses palpable, distal pulses not palpable. bilateral LEs cool but not cold. capillary refill time 3 secs bilaterally. no calf tenderness to compression. patient able to freely move LEs without pain - Neurological Exam Neurological exam: Alert, Oriented x3 - Psychiatric Exam Psychiatric exam: Normal Affect, Normal Mood - Skin Skin Exam: Dry, Warm Results - Vital Signs Recent Vital Signs: Last Vital Signs Temp 98.6 F 10/11/16 08:57 Pulse 68 10/11/16 10:25 Resp 20 10/11/16 08:57 BP 132/89 10/11/16 10:25 Pulse Ox 97 10/11/16 08:57 - Labs Result Diagrams: 10/10/16 21:30 10/11/16 07:27 Labs: Laboratory Results - last 24 hr 10/10/16 10/11/16 10/11/16 21:30 02:04 07:27 WBC 14.4 H RBC 4.55 Hgb 14.8 Hct 42.5 MCV 93.4 MCH 32.5 MCHC 34.8 RDW 13.1 Plt Count 314 MPV 9.2 Gran % 66.0 Lymph % (Auto) 25.8 [place] % (Auto) 5.3 Eos % (Auto) 2.6 Baso % (Auto) 0.3 Gran # 9.50 H Lymph # 3.7 H [place] # 0.8 H Eos # 0.4 Baso # 0.04 APTT 109.4 H* Sodium 143 Potassium 3.5 L Chloride 110 H Carbon Dioxide 24 Anion Gap 13 BUN 8 Creatinine 0.6 Est GFR ( Amer) > 60 Est GFR (Non-Af Amer) > 60 Random Glucose 114 H Calcium 8.8 Total Bilirubin 0.4 AST 20 ALT 23 Alkaline Phosphatase 112 Total Protein 7.3 Albumin 3.9 Globulin 3.4 Albumin/Globulin Ratio 1.1 10/11/16 10:50 WBC RBC Hgb Hct MCV MCH MCHC RDW Plt Count MPV Gran % Lymph % (Auto) [place] % (Auto) Eos % (Auto) Baso % (Auto) Gran # Lymph # [place] # Eos # Baso # APTT 71.3 H* Sodium Potassium Chloride Carbon Dioxide Anion Gap BUN Creatinine Est GFR ( Amer) Est GFR (Non-Af Amer) Random Glucose Calcium Total Bilirubin AST ALT Alkaline Phosphatase Total Protein Albumin Globulin Albumin/Globulin Ratio Assessment & Plan - Assessment and Plan (Free Text) Assessment: 66 y/o female with severe PAD s/p bilateral fem-pop bypasses w/ chronic LE ischemia 2/2 bypass occlusion Plan: -ischemia appears to be chronic in nature, not acute -LE fed by collaterals -will f/u IR, Dr. Talbot recommendations -if unable to revascularize may need further surgical intervention -cont anticoagulation -will follow -no acute surgical intervention at this time -d/w Dr. Rutledge [facility] PGY3 - Date & Time Date: 10/10/16 (patient seen and examined in ER on 10/[address] Rutledge ) <Jayme Rutledge - Last Filed: 11/07/16 23:27> Results - Vital Signs Recent Vital Signs: Last Vital Signs Temp 98.7 F 10/17/16 12:00 Pulse 74 10/17/16 16:00 Resp 21 10/17/16 16:00 BP 118/84 10/17/16 14:28 Pulse Ox 99 10/17/16 00:01 - Labs Result Diagrams: 10/17/16 05:15 10/17/16 05:15 Assessment & Plan - Assessment and Plan (Free Text) Plan: Patient was seen and examined by me. I agree with assessment and plan as per resident's note. - Date & Time Time: 21:30
--- NOTE | 2016-10-11 16:03 | CP.PCM.PN ---
Subjective - Date & Time of Evaluation Date of Evaluation: 10/11/16 Time of Evaluation: 07:35 - Subjective Subjective: Pt s/e bedside. No acute complaints. Pt not completely pulseless in RLE; RLE very cold to touch compared to LLE. Objective - Vital Signs/Intake and Output Vital Signs (last 24 hours): Temp Pulse Resp BP Pulse Ox 98.6 F 68 20 132/89 97 10/11/16 08:57 10/11/16 10:25 10/11/16 08:57 10/11/16 10:25 10/11/16 08:57 Intake and Output: 10/11/16 10/11/16 06:59 18:59 Intake Total 0 135 Balance 0 135 - Medications Medications: Current Medications Acetaminophen (Tylenol 325mg Tab) 650 mg PO Q6H PRN PRN Reason: Pain, Mild (1-3) Atorvastatin Calcium (Lipitor) 20 mg PO DIN [facility] Cilostazol (Pletal) 100 mg PO BID [facility] Last Admin: 10/11/16 10:23 Dose: 100 mg Clopidogrel Bisulfate (Plavix) 75 mg PO DAILY [facility] Last Admin: 10/11/16 10:29 Dose: 75 mg Gabapentin (Neurontin) 600 mg PO BID [facility] PRN Reason: Protocol Last Admin: 10/11/16 10:25 Dose: 600 mg Heparin Sodium/Dextrose (Heparin 25,000 Units/250ml In D5w) 25,000 units in 250 mls @ 16.329 mls/hr IV .[id number] PRN; Protocol; 18 UNITS/KG/HR PRN Reason: ADJUST RATE PER PROTOCOL Last Admin: 10/11/16 14:18 Dose: 15 units/kg/hr, 13.608 mls/hr Sodium Chloride (Sodium Chloride 0.9%) 1,000 mls @ 100 mls/hr IV .Q10H [facility] Last Admin: 10/11/16 15:05 Dose: 100 mls/hr Levothyroxine Sodium (Synthroid) 100 mcg PO DAILY [facility] Last Admin: 10/11/16 10:25 Dose: 100 mcg Losartan Potassium (Cozaar) 50 mg PO DAILY [facility] Last Admin: 10/11/16 10:25 Dose: 50 mg Morphine Sulfate (Morphine) 2 mg IVP Q4H PRN PRN Reason: Pain, severe (8-10) Last Admin: 10/11/16 06:48 Dose: 2 mg Oxycodone/Acetaminophen (Percocet 5/325 Mg Tab) 1 tab PO Q6H PRN PRN Reason: Pain, moderate (4-7) Stop: 10/13/16 21:14 Last Admin: 10/11/16 10:24 Dose: 1 tab Pantoprazole Sodium (Protonix Ec Tab) 40 mg PO ACB [facility] Last Admin: 10/11/16 10:26 Dose: 40 mg - Labs Labs: 10/10/16 21:30 10/11/16 07:27 PT 10.5 Seconds (9.9-11.8) 10/10/16 16:09 INR 0.97 (0.93-1.08) 10/10/16 16:09 APTT 71.3 Seconds (23.7-30.8) H* 10/11/16 10:50 - Additional Findings Additional findings: Phys Exam: VS as below Constitutional: a&o x 4, nad Head and Neck: neck supple, no jvd, trachea midline, carotid midline, no cervical/head mass Eyes: jon, nonicteric sclera, eom intact ENT: auditory acuity grossly intact, throat not congested, no nasal deformity Cardio: rrr, no m/r/g, no carotid bruit, nml s1, s2 Pulm: no accessory muscle use, equal nml breath sounds bilaterally, ctab Abd: s/nt/nd, nbs x 4 q, no palpable masses Derm: no rashes, no ulcers, no lesions Extr: bilateral femoral pulses palpable, distal pulses not palpable. bilateral LEs cool but not cold. capillary refill time 3 secs bilaterally. no calf tenderness to compression. 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 Patient was scheduled to see Dr. Jeremias Talbot tomorrow, but due to the severity of symptoms, color changes, numbness, and pallor in the RLE, she came to ED. Patient started on heparin drip, vascular surgery and interventional radiology consulted. CT angiography of the abdominal and pelvis with runoff to the lower extremities with IV contrast reveals the following, as interpreted by the radiologist: - Occlusion of the bilateral femoropopliteal bypass grafts. - Occlusion of the left superficial femoral artery. - Left popliteal artery is partially reconstituted by collateral vessels, but occludes at the level of the upper calf. - Left calf arteries are reconstituted by collateral vessels. There is 2 vessel runoff to the left foot, via the anterior tibial and peroneal arteries. - Right superficial femoral artery is partially patent, but is small in size, and occludes at the level of the mid thigh. - Occlusion of the right popliteal artery. - The right peroneal vein is reconstituted in the right calf, but occludes in the distal calf. There is NO runoff to the right foot. - At least 50% stenosis of the of the right common iliac artery. Plan: 1) Right LE pain secondary to PVD - See details of CT above - Vascular surgery: Dr. Jeremias Talbot - Interventional Radiology consulted: Dr. Jeremias Talbot. Took pt for procedure today at 3:15 angiogram of RLE - General Surg consulted: Dr. Parkinson -Ischemia appears to be chronic in nature, not acute -LE fed by collaterals -Will f/u IR, Dr. Talbot recommendations -If unable to revascularize may need further surgical intervention -Cont anticoagulation -No acute surgical intervention at this time - Patient is NPO, except for medications - Monitor distal pulses q4h - Vitals q8h - Heparin drip - PT/PTT per protocol - Analgesia with Morphine 2 mg IVP q4h PRN, Percocet PRN, Tylenol PRN - Atorvastatin 20 mg PO DIN - C/W home Cilostazol 100 mg PO BID - Holding/stopped home NSAIDs 2) CAD - C/W Plavix 75 mg PO daily - C/W Atorvastatin as detailed above, dual benefit in this patient - C/W Losartan 50 mg PO daily 3) Peripheral neuropathy, most likely secondary to Peripheral Vascular Disease - C/W Neurontin 600 mg BID 4) Hypothyroidism C/W Levothyroxine 100 mcg PO daily 5) GI prophylaxis: Protonix 40 mg ACB 6) Hypokalemia - Initial Potassium of 3.3 - 40 mEq given PO, will continue to monitor with daily CMP
[2016-10-11] MEDS ORDERED: Iodixanol 320 mg/ml 150 ml Bottle IV ONE (16:28)
[2016-10-11] MEDS ORDERED: Lidocaine 2% Inj (20ml) ONE (16:28)
[2016-10-11] MEDS ORDERED: Iodixanol 320 MG/ML 200 ML BOTTLE IV ONE (16:28)
[2016-10-11] MEDS ORDERED: Nitroglycerin 50mg in D5W 50 MG/250 ML BOTTLE IV ONE (16:37)
[2016-10-11] MEDS ORDERED: Midazolam 2 MG/2 ML VIAL ONE ×2 (17:58→19:01)
[2016-10-11] MEDS ORDERED: Oxycodone/Acetaminophen 5/325 mg Tab PO PRN (18:55)
[2016-10-11] MEDS ORDERED: Heparin 25,000units in D5W 25,000 UNITS/250 ML BAG IV ONE (19:09)
[2016-10-11] MEDS: HYDROmorphone 2 mg/ml ISec IVP PRN (19:27)
[2016-10-11 19:45] LABS: BASO # 0.05 K/mm3 (0.0-2.0); BASO % 0.4 % (0.0-3.0); EOS # 0.2 (0.0-0.7); EOS % 1.5 % (1.5-5.0); GRAN # 8.67 (1.4-6.5); GRAN % 63.6 % (50.0-68.0); HEMATOCRIT 44.4 % (36.0-48.0); LYMPH # 3.9 (1.2-3.4); LYMPH % 28.7 % (22.0-35.0); MEAN CELL VOLUME 95.3 fl (80.0-105.0); MEAN CORPUSCULAR HEMOGLOBIN 32.2 pg (25.0-35.0); MEAN CORPUSCULAR HGB CONC 33.8 g/dl (31.0-37.0); MEAN PLATELET VOLUME 9.5 fl (7.0-11.0); MONO # 0.8 (0.1-0.6); MONO % 5.8 % (1.0-6.0); RED CELL DISTRIBUTION WIDTH 13.3 % (11.5-14.5); WHITE BLOOD COUNT 13.6 10^3/ul (4.5-11.0)
--- NOTE | 2016-10-11 21:00 | VASCULAR ---
PROCEDURE: 1. Abdominal aortogram and bilateral lower extremity runoff with right selective views 2. Ekos catheter directed thrombolysis right femoral - popliteal bypass HISTORY: Peripheral vascular disease. Right leg ischemia. Thrombosed right femoral - popliteal bypass graft PHYSICIAN(S): Jeremias Talbot M.D. TECHNIQUE: The relative risks and indications of the procedure were explained to the patient and consent obtained. The patient was hydrated prior to the procedure and the appropriate labs drawn. The patient was placed supine on the arteriogram table and the left groin prepped and draped in the usual sterile fashion. Conscious sedation and monitoring were provided throughout the procedure by a nurse. The left common femoral artery was punctured with ultrasound guidance. A 5 Indonesian catheter was placed. . Through the sheath and over a guidewire, a 5 Indonesian flush catheter was placed in the abdominal aorta at the level of the renal arteries and a PA DSA abdominal aortogram performed. The catheter was pulled down to the aortic bifurcation and bilateral oblique DSA pelvic arteriograms performed. Overlapping bilateral lower extremity DSA arteriograms were obtained from the inguinal ligaments to the feet. 0.035 angled Glidewire was advanced bifurcation and placed in the knee right common femoral artery. A 6 Indonesian sheath was placed in the right groin. The occluded femoral-popliteal bypass was crossed with angled glidewire and catheter. A support wire was placed. Next a 5 Indonesian EKOS catheter with a 50 cm infusion length was placed across the occluded right femoral-popliteal bypass. TPA was initiated at 1 milligram/hour. Sub therapeutic heparin was given through the sheath. Fusion system was secured the patient transferred to the ICU. FINDINGS: There is 2 right renal arteries and single left renal artery present. The renal arteries are patent. The infrarenal abdominal aorta is calcified but patent. The aortic bifurcation is patent. The common iliac arteries are the regular but patent. The external iliac arteries are patent bilaterally. The internal iliac arteries are patent bilaterally. The right common femoral arch patent. The right profunda femoral artery is enlarged. The zuni right SFA is atretic and occluded. The right femoral- popliteal graft is occluded. The right trifurcation is occluded. All 3 tibial vessels are occluded. There is reconstitution of the mid right anterior tibial artery. The left common femoral arch patent. Left profunda femoral artery is enlarged. The zuni left SFA is occluded. The patient's left femoral- popliteal bypass is occluded. An isolated segment of the left popliteal artery. The left trifurcation reconstitutes distally. Two vessel runoff via the left anterior tibial and peroneal arteries. Left posterior tibial artery occludes in its mid segment IMPRESSION: 1.Occluded bilateral femoral- popliteal prostatic bypass 2. Successful placement of a infusion system in the occluded right femoral- popliteal bypass 3. Extensive trifurcation and tibial occlusive disease, greater on the right than the left.
--- NOTE | 2016-10-11 22:27 | CP.PCM.CON ---
<Ran Peterson - Last Filed: 10/11/16 23:25> History of Present Illness - History of Present Illness History of Present Illness: Patient is a 66 year old female with past medical history significant for PAD s/ p b/l femoral bypass graft that has occluded, CAD, HTN, [place], HLD, and hypothyroidism who presented to [facility] on 10/10/2016 for 2-3 week history of right lower extremity pain. Patient was evaluated in the ED and found to have poor perfusion of RLE with poorly palpable peripheral pulses. Abdominal angiography was preformed and has been reviewed please see report for further details. General surgery was consulted and recommended patient continue anticoagulation, follow up with IR and Dr. Jeremias Talbot given the chronic nature of her disease. Dr. Jeremias Talbot with interventional radiology assessed the patient and scheduled her for interventional procedure on 10/11/2016. Per Dr. Talbot report patient was noted to have occlusion of bilateral [place] SFA's, femoral-popliteal bypasses, the right trifurcation as well as all three tibial vessels of right lower extremity. Dr. Talbot placed Ekos catheter in the occluded right femoral-popliteal bypass. Patient was transferred to ICU for further evaluation and close monitoring. Review of Systems - Constitutional Constitutional: absent: Chills, Fever - EENT Eyes: absent: Blurred Vision, Change in Vision Nose/Mouth/Throat: absent: Epistaxis, Sore Throat - Cardiovascular Cardiovascular: absent: Chest Pain, Dyspnea, Orthopnea, Palpitations - Respiratory Respiratory: absent: Cough, Dyspnea, Hemoptysis - Gastrointestinal Gastrointestinal: absent: Abdominal Pain, Bloating, Change in Bowel Habits - Genitourinary Genitourinary: absent: Dysuria, Urinary Incontinence - Musculoskeletal Musculoskeletal: absent: Muscle Cramps, Numbness - Integumentary Integumentary: absent: Erythema, Pruritus, Rash - Neurological Neurological: absent: Abnormal Movements, Confusion, Numbness, Focal Weakness, Weakness - Psychiatric Psychiatric: absent: Anxiety, Depression Past Patient History - Infectious Disease Hx of Infectious Diseases: None - Past Medical History & Family History Past Medical History?: Yes - Past Social History Smoking Status: Heavy Smoker > 10 Cigarettes Daily Alcohol: None Drugs: Denies - CARDIAC Hx Cardiac Disorders: Yes Hx Heart Attack: Yes (14 yrs ago) Hx Hypertension: Yes Hx Peripheral Vascular Disease: Yes - PULMONARY Hx Respiratory Disorders: No Hx Chronic Obstructive Pulmonary Disease (COPD): Yes - NEUROLOGICAL Hx Neurological Disorder: No - HEENT Hx HEENT Problems: No - RENAL Hx Chronic Kidney Disease: No - ENDOCRINE/METABOLIC Hx Endocrine Disorders: Yes Hx Hypothyroidism: Yes - HEMATOLOGICAL/ONCOLOGICAL Hx Blood Disorders: No - INTEGUMENTARY Hx Dermatological Problems: No - MUSCULOSKELETAL/RHEUMATOLOGICAL Hx Musculoskeletal Disorders: No Hx Falls: No - GASTROINTESTINAL Hx Gastrointestinal Disorders: No - GENITOURINARY/GYNECOLOGICAL Hx Genitourinary Disorders: No - PSYCHIATRIC Hx Psychophysiologic Disorder: No Hx Depression: No Hx Emotional Abuse: No Hx Physical Abuse: No Hx Substance Use: No - SURGICAL HISTORY Hx Angiogram: Yes (RIGHT 2012; BIN 10/02/13; LEFT 01/04/14) Hx Appendectomy: Yes Hx Cardiac Catheterization: Yes Hx Cholecystectomy: Yes (1968) Other/Comment: R femoral pop bypass - ANESTHESIA Hx Anesthesia: Yes Hx Anesthesia Reactions: No Hx Malignant Hyperthermia: No Meds Allergies/Adverse Reactions: Allergies Allergy/AdvReac Type Severity Reaction Status Date / Time aspirin [From Soma Compound] Allergy RASH Verified 10/10/16 15:46 carisoprodol Allergy RASH Verified 10/10/16 15:46 [From Soma Compound] - Medications Medications: Current Medications Acetaminophen (Tylenol 325mg Tab) 650 mg PO Q6H PRN PRN Reason: Pain, Mild (1-3) Acetaminophen (Tylenol 325mg Tab) 650 mg PO Q4H PRN PRN Reason: Pain, Mild (1-3) Atorvastatin Calcium (Lipitor) 20 mg PO DIN [facility] Cilostazol (Pletal) 100 mg PO BID [facility] Last Admin: 10/11/16 10:23 Dose: 100 mg Clopidogrel Bisulfate (Plavix) 75 mg PO DAILY [facility] Last Admin: 10/11/16 10:29 Dose: 75 mg Gabapentin (Neurontin) 600 mg PO BID [facility] PRN Reason: Protocol Last Admin: 10/11/16 10:25 Dose: 600 mg Hydralazine HCl (Apresoline) 10 mg IVP Q6 PRN PRN Reason: HTN Hydromorphone HCl (Dilaudid) 2 mg IVP Q4H PRN PRN Reason: Pain, severe (8-10) Last Admin: 10/11/16 19:27 Dose: 2 mg Heparin Sodium/Dextrose (Heparin 25,000 Units/250ml In D5w) 25,000 units in 250 mls @ 16.329 mls/hr IV .[id number] PRN; Protocol; 18 UNITS/KG/HR PRN Reason: ADJUST RATE PER PROTOCOL Last Admin: 10/11/16 14:18 Dose: 15 units/kg/hr, 13.608 mls/hr Sodium Chloride (Sodium Chloride 0.9%) 1,000 mls @ 100 mls/hr IV .Q10H [facility] Last Admin: 10/11/16 15:05 Dose: 100 mls/hr Cefazolin Sodium (Ancef 1gm In Ns) 1 gm in 100 mls @ 100 mls/hr IVPB QAM [facility] PRN Reason: Protocol Levothyroxine Sodium (Synthroid) 100 mcg PO DAILY [facility] Last Admin: 10/11/16 10:25 Dose: 100 mcg Lorazepam (Ativan) 2 mg IVP Q6H PRN PRN Reason: Anxiety Last Admin: 10/11/16 21:00 Dose: 2 mg Losartan Potassium (Cozaar) 50 mg PO DAILY [facility] Last Admin: 10/11/16 10:25 Dose: 50 mg Ondansetron HCl (Zofran Inj) 4 mg IVP Q4H PRN PRN Reason: Nausea/Vomiting Last Admin: 10/11/16 20:09 Dose: 4 mg Oxycodone/Acetaminophen (Percocet 5/325 Mg Tab) 1 tab PO Q6H PRN PRN Reason: Pain, moderate (4-7) Stop: 10/14/16 18:56 Pantoprazole Sodium (Protonix Inj) 40 mg IVP DAILY [facility] Physical Exam - Constitutional Appears: No Acute Distress - Head Exam Head Exam: ATRAUMATIC, NORMAL INSPECTION, NORMOCEPHALIC - Eye Exam Eye Exam: EOMI, PERRL - ENT Exam ENT Exam: Mucous Membranes Moist - Neck Exam Neck exam: Positive for: Normal Inspection - Respiratory Exam Respiratory Exam: Clear to Auscultation Bilateral, NORMAL BREATHING PATTERN - Cardiovascular Exam Cardiovascular Exam: REGULAR RHYTHM, +S1, +S2 - GI/Abdominal Exam GI & Abdominal Exam: Normal Bowel Sounds, Soft. absent: Tenderness - Extremities Exam Extremities exam: Negative for: calf tenderness Additional comments: bilateral femoral pulses palpable, Right DP, PT not palpable nor with doppler, Left DP,PT not palpable but found with doppler, right lower extremity cool to touch compared to left lower extremity, poor capillary refill time right lower extremity, Left lower extremity 3 seconds, no calf tenderness to compression - Neurological Exam Neurological exam: Alert, CN II-XII Intact, Oriented x3 - Psychiatric Exam Psychiatric exam: Normal Affect, Normal Mood - Skin Skin Exam: Dry Additional comments: right lower extremity noted to be cool to touch with pale color more then compared with left, left lower extremity with adequate warmth and diminished color Results - Vital Signs Recent Vital Signs: Last Vital Signs Temp 98.6 F 10/11/16 08:57 Pulse 71 10/11/16 20:00 Resp 20 10/11/16 20:00 BP 166/89 H 10/11/16 20:00 Pulse Ox 86 L 10/11/16 20:00 - Labs Result Diagrams: 10/11/16 19:30 10/11/16 07:27 Labs: Laboratory Results - last 24 hr 10/11/16 10/11/16 10/11/16 02:04 07:27 10:50 WBC RBC Hgb Hct MCV MCH MCHC RDW Plt Count MPV Gran % Lymph % (Auto) Gregory % (Auto) Eos % (Auto) Baso % (Auto) Gran # Lymph # Gregory # Eos # Baso # APTT 109.4 H* 71.3 H* Sodium 143 Potassium 3.5 L Chloride 110 H Carbon Dioxide 24 Anion Gap 13 BUN 8 Creatinine 0.6 Est GFR ( Amer) > 60 Est GFR (Non-Af Amer) > 60 Random Glucose 114 H Calcium 8.8 Total Bilirubin 0.4 AST 20 ALT 23 Alkaline Phosphatase 112 Total Protein 7.3 Albumin 3.9 Globulin 3.4 Albumin/Globulin Ratio 1.1 10/11/16 10/11/16 19:30 19:30 WBC 13.6 H RBC 4.66 Hgb 15.0 Hct 44.4 MCV 95.3 MCH 32.2 MCHC 33.8 RDW 13.3 Plt Count 286 MPV 9.5 Gran % 63.6 Lymph % (Auto) 28.7 Gregory % (Auto) 5.8 Eos % (Auto) 1.5 Baso % (Auto) 0.4 Gran # 8.67 H Lymph # 3.9 H Gregory # 0.8 H Eos # 0.2 Baso # 0.05 APTT 30.0 Sodium Potassium Chloride Carbon Dioxide Anion Gap BUN Creatinine Est GFR ( Amer) Est GFR (Non-Af Amer) Random Glucose Calcium Total Bilirubin AST ALT Alkaline Phosphatase Total Protein Albumin Globulin Albumin/Globulin Ratio Assessment & Plan (1) Peripheral vascular disease Status: Chronic Priority: High (2) Essential hypertension, benign Status: Chronic (3) Hypothyroidism Status: Chronic (4) Mixed hyperlipidemia Status: Chronic - Assessment and Plan (Free Text) Assessment: Patient is a 66 year old female with past medical history significant for PAD s/ p b/l femoral bypass graft that has occluded, CAD, HTN, AZ, HLD, and hypothyroidism who presented to [facility] on 10/10/2016 for 2-3 week history of right lower extremity pain. She was evaluated by general surgery and interventional radiology. She was taken for interventional procedure by Dr. Jeremias Talbot and Ekos catheter was placed in right femoral-popliteal bypass graft. Plan: Neuro: - A&Ox3 - Stable, continue to monitor Pulm: - Hx of tobacco abuse and COPD - O2 sats noted to be below 90% - O2 via NC 2L - ABG, CXR CV: PAD, HTN, CAD, Hx of AZ PAD - IR with Dr. Talbot and intervention involving Ekos catheter placement - Maintain limited mobility with sedation as needed - Pain control with Percocent, neurontin, tylenol - heparin gtt - Continue Liptor, cilastazol - IVF NS @ 100mL/Hr HTN - Will allow for permissive HTN at this point with continued monitoring - Losartan - Hydralazine 10mg IV Q6prn >180 systolic BP CAD - Continue pletal, plavix Renal: Initial Hypokalemia of 3.3 on admit - replaced, no 3.5 - Continue to monitor GI: stable - NPO - Protonix Endo: hx of hypothryroidism - recheck TSH in AM MSK: PAD in b/l LE - Plan as above, continue to monitor Psych: stable ID: Leukocytosis, afebrile - Likely 2/2 reactionary stress reaction - monitor GI/DVT ppx: Protonix and Heparin gtt case discussed and reviewed with attending - Date & Time Date: 10/11/16 Time: 22:34 <Gama Shelby Q - Last Filed: 10/12/16 06:57> Meds - Medications Medications: Current Medications Acetaminophen (Tylenol 325mg Tab) 650 mg PO Q6H PRN PRN Reason: Pain, Mild (1-3) Acetaminophen (Tylenol 325mg Tab) 650 mg PO Q4H PRN PRN Reason: Pain, Mild (1-3) Atorvastatin Calcium (Lipitor) 20 mg PO DIN [facility] Cilostazol (Pletal) 100 mg PO BID [facility] Last Admin: 10/11/16 10:23 Dose: 100 mg Clopidogrel Bisulfate (Plavix) 75 mg PO DAILY [facility] Last Admin: 10/11/16 10:29 Dose: 75 mg Gabapentin (Neurontin) 600 mg PO BID [facility] PRN Reason: Protocol Last Admin: 10/11/16 10:25 Dose: 600 mg Hydralazine HCl (Apresoline) 10 mg IVP Q6 PRN PRN Reason: HTN Last Admin: 10/12/16 02:28 Dose: 10 mg Hydromorphone HCl (Dilaudid) 2 mg IVP Q4H PRN PRN Reason: Pain, severe (8-10) Last Admin: 10/12/16 03:06 Dose: 2 mg Heparin Sodium/Dextrose (Heparin 25,000 Units/250ml In D5w) 25,000 units in 250 mls @ 16.329 mls/hr IV .[id number] PRN; Protocol; 18 UNITS/KG/HR PRN Reason: ADJUST RATE PER PROTOCOL Last Admin: 10/11/16 14:18 Dose: 15 units/kg/hr, 13.608 mls/hr Sodium Chloride (Sodium Chloride 0.9%) 1,000 mls @ 100 mls/hr IV .Q10H [facility] Last Admin: 10/12/16 06:27 Dose: 100 mls/hr Cefazolin Sodium (Ancef 1gm In Ns) 1 gm in 100 mls @ 100 mls/hr IVPB QAM [facility] PRN Reason: Protocol Alteplase, Recombinant 10 mg/ (Sodium Chloride) 500 mls @ 30 mls/hr IV Q16H [facility] Last Admin: 10/12/16 06:21 Dose: 30 mls/hr Levothyroxine Sodium (Synthroid) 100 mcg PO DAILY [facility] Last Admin: 10/11/16 10:25 Dose: 100 mcg Lorazepam (Ativan) 2 mg IVP Q6H PRN PRN Reason: Anxiety Last Admin: 10/11/16 21:00 Dose: 2 mg Losartan Potassium (Cozaar) 50 mg PO DAILY [facility] Last Admin: 10/11/16 10:25 Dose: 50 mg Ondansetron HCl (Zofran Inj) 4 mg IVP Q4H PRN PRN Reason: Nausea/Vomiting Last Admin: 10/11/16 20:09 Dose: 4 mg Oxycodone/Acetaminophen (Percocet 5/325 Mg Tab) 1 tab PO Q6H PRN PRN Reason: Pain, moderate (4-7) Stop: 10/14/16 18:56 Pantoprazole Sodium (Protonix Inj) 40 mg IVP DAILY [facility] Results - Vital Signs Recent Vital Signs: Last Vital Signs Temp 98.5 F 10/12/16 00:00 Pulse 90 10/12/16 04:00 Resp 14 10/12/16 04:00 BP 161/83 H 10/12/16 04:00 Pulse Ox 90 L 10/12/16 04:00 - Labs Result Diagrams: 10/11/16 19:30 10/11/16 07:27 Labs: Laboratory Results - last 24 hr 10/11/16 10/11/16 10/11/16 07:27 10:50 19:30 WBC 13.6 H RBC 4.66 Hgb 15.0 Hct 44.4 MCV 95.3 MCH 32.2 MCHC 33.8 RDW 13.3 Plt Count 286 MPV 9.5 Gran % 63.6 Lymph % (Auto) 28.7 Gregory % (Auto) 5.8 Eos % (Auto) 1.5 Baso % (Auto) 0.4 Gran # 8.67 H Lymph # 3.9 H Gregory # 0.8 H Eos # 0.2 Baso # 0.05 APTT 71.3 H* pCO2 pO2 HCO3 ABG pH ABG Total CO2 ABG O2 Saturation ABG O2 Content ABG Base Excess ABG Hemoglobin ABG Carboxyhemoglobin POC ABG HHb (Measured) ABG Methemoglobin ABG O2 Capacity Hgb O2 Saturation FiO2 Sodium 143 Potassium 3.5 L Chloride 110 H Carbon Dioxide 24 Anion Gap 13 BUN 8 Creatinine 0.6 Est GFR ( Amer) > 60 Est GFR (Non-Af Amer) > 60 Random Glucose 114 H Calcium 8.8 Total Bilirubin 0.4 AST 20 ALT 23 Alkaline Phosphatase 112 Total Protein 7.3 Albumin 3.9 Globulin 3.4 Albumin/Globulin Ratio 1.1 10/11/16 10/11/16 19:30 22:30 WBC RBC Hgb Hct MCV MCH MCHC RDW Plt Count MPV Gran % Lymph % (Auto) Gregory % (Auto) Eos % (Auto) Baso % (Auto) Gran # Lymph # Gregory # Eos # Baso # APTT 30.0 pCO2 50 H pO2 67.0 L HCO3 23.5 ABG pH 7.28 L ABG Total CO2 25.0 ABG O2 Saturation 95.9 ABG O2 Content 18.8 ABG Base Excess -3.8 L ABG Hemoglobin 14.5 ABG Carboxyhemoglobin 2.4 H POC ABG HHb (Measured) 3.9 ABG Methemoglobin 1.4 ABG O2 Capacity 19.6 Hgb O2 Saturation 92.3 L FiO2 32.0 Sodium Potassium Chloride Carbon Dioxide Anion Gap BUN Creatinine Est GFR ( Amer) Est GFR (Non-Af Amer) Random Glucose Calcium Total Bilirubin AST ALT Alkaline Phosphatase Total Protein Albumin Globulin Albumin/Globulin Ratio Attending/Attestation - Attestation I have personally seen and examined this patient.: Yes I have fully participated in the care of the patient.: Yes I have reviewed all pertinent clinical information: Yes Notes (Text): 10/12/16 06:54 I agree with the above mentioned note and exam by the resident with the addition /exception of the followin66 y/o female with a PMHx as listed above, most notable for severe PAD requiring bilateral fem-pop bypass in 2013 presented to the ED with the complaint of right lower extremity pain for the past 1-3 weeks. Patient underwent angiography followed by catheter directed tPa along with EKOS catheter. She remained in the ICU overnight without any complications; she was brought to the ICU without peripheral pulses in the right lower extremity and remained largely unchanged overnight. Patient to possibly have a repeat Angiography done at the discretion of the IR team.
[2016-10-11 22:42] LABS: ARTERIAL BLOOD GAS HCO3 23.5 mmol/L (21-28); ARTERIAL BLOOD GAS O2 CAPACITY 19.6 mL/dl (16-24); ARTERIAL BLOOD GAS O2 CONTENT 18.8 ML/dl (15-23); ARTERIAL BLOOD GAS PH 7.28 (7.35-7.45); ARTERIAL BLOOD HGB O2 SAT 92.3 % (95.0-98.0); CARBOXYHEMOGLOBIN 2.4 % (0.5-1.5); HHB 3.9 % (0-5); METHEMOGLOBIN 1.4 % (0.0-3.0)
[2016-10-12] MEDS: HYDROmorphone 2 mg/ml ISec IVP PRN ×2 (03:06→19:54)
[2016-10-12] MEDS: Sodium Chloride 0.9% 1,000 ML IV SCH (06:27)
[2016-10-12 06:44] LABS: ALB/GLOB RATIO 1.1 (1.1-1.8); ALKALINE PHOSPHATASE 107 U/L (38-133); ALT/SGPT 22 U/L (7-56); AST/SGOT 36 U/L (15-39); BILIRUBIN,TOTAL 0.6 mg/dL (0.2-1.3); BLOOD UREA NITROGEN 7 mg/dL (7-21); CALCIUM 8.4 mg/dL (8.4-10.5); CARBON DIOXIDE 25 mmol/L (21-33); CHLORIDE 105 mmol/L (95-110); GFR AFRICAN-AMERICAN > 60; GLUCOSE,RANDOM 132 mg/dL (70-110); POTASSIUM 3.7 mmol/L (3.6-5.0); SODIUM 139 mmol/L (132-148); TOTAL PROTEIN 6.9 g/dL (5.8-8.3)
[2016-10-12 06:50] LABS: HEMATOCRIT 43.4 % (36.0-48.0); INR 1.42 (0.93-1.08); MEAN CELL VOLUME 94.3 fl (80.0-105.0); MEAN CORPUSCULAR HGB CONC 33.9 g/dl (31.0-37.0); MEAN PLATELET VOLUME 9.4 fl (7.0-11.0); RED CELL DISTRIBUTION WIDTH 13.4 % (11.5-14.5); WHITE BLOOD COUNT 18.1 10^3/ul (4.5-11.0)
--- NOTE | 2016-10-12 08:01 | CP.PCM.PN ---
<Geovanny Landrum - Last Filed: 10/12/16 11:17> Subjective - Date & Time of Evaluation Date of Evaluation: 10/12/16 Time of Evaluation: 07:30 - Subjective Subjective: Patient seen and examined at bedside. No acute events overnight. Patient resting comfortably in bed. ROS cannot be attained at this time due to AMS. Objective - Vital Signs/Intake and Output Vital Signs (last 24 hours): Temp Pulse Resp BP Pulse Ox 98.5 F 90 14 161/83 H 90 L 10/12/16 00:00 10/12/16 04:00 10/12/16 04:00 10/12/16 04:00 10/12/16 04:00 Intake and Output: 10/12/16 10/12/16 06:59 18:59 Intake Total 1550 Output Total 1000 Balance 550 - Medications Medications: Current Medications Acetaminophen (Tylenol 325mg Tab) 650 mg PO Q6H PRN PRN Reason: Pain, Mild (1-3) Acetaminophen (Tylenol 325mg Tab) 650 mg PO Q4H PRN PRN Reason: Pain, Mild (1-3) Atorvastatin Calcium (Lipitor) 20 mg PO DIN [facility] Cilostazol (Pletal) 100 mg PO BID [facility] Last Admin: 10/11/16 10:23 Dose: 100 mg Clopidogrel Bisulfate (Plavix) 75 mg PO DAILY [facility] Last Admin: 10/11/16 10:29 Dose: 75 mg Gabapentin (Neurontin) 600 mg PO BID [facility] PRN Reason: Protocol Last Admin: 10/11/16 10:25 Dose: 600 mg Hydralazine HCl (Apresoline) 10 mg IVP Q6 PRN PRN Reason: HTN Last Admin: 10/12/16 02:28 Dose: 10 mg Hydromorphone HCl (Dilaudid) 2 mg IVP Q4H PRN PRN Reason: Pain, severe (8-10) Last Admin: 10/12/16 03:06 Dose: 2 mg Heparin Sodium/Dextrose (Heparin 25,000 Units/250ml In D5w) 25,000 units in 250 mls @ 16.329 mls/hr IV .[id number] PRN; Protocol; 18 UNITS/KG/HR PRN Reason: ADJUST RATE PER PROTOCOL Last Admin: 10/11/16 14:18 Dose: 15 units/kg/hr, 13.608 mls/hr Sodium Chloride (Sodium Chloride 0.9%) 1,000 mls @ 100 mls/hr IV .Q10H [facility] Last Admin: 10/12/16 06:27 Dose: 100 mls/hr Cefazolin Sodium (Ancef 1gm In Ns) 1 gm in 100 mls @ 100 mls/hr IVPB QAM [facility] PRN Reason: Protocol Alteplase, Recombinant 10 mg/ (Sodium Chloride) 500 mls @ 30 mls/hr IV Q16H [facility] Last Admin: 10/12/16 06:21 Dose: 30 mls/hr Levothyroxine Sodium (Synthroid) 100 mcg PO DAILY [facility] Last Admin: 10/11/16 10:25 Dose: 100 mcg Lorazepam (Ativan) 2 mg IVP Q6H PRN PRN Reason: Anxiety Last Admin: 10/11/16 21:00 Dose: 2 mg Losartan Potassium (Cozaar) 50 mg PO DAILY [facility] Last Admin: 10/11/16 10:25 Dose: 50 mg Ondansetron HCl (Zofran Inj) 4 mg IVP Q4H PRN PRN Reason: Nausea/Vomiting Last Admin: 10/11/16 20:09 Dose: 4 mg Oxycodone/Acetaminophen (Percocet 5/325 Mg Tab) 1 tab PO Q6H PRN PRN Reason: Pain, moderate (4-7) Stop: 10/14/16 18:56 Pantoprazole Sodium (Protonix Inj) 40 mg IVP DAILY [facility] - Labs Labs: 10/12/16 06:00 10/12/16 06:00 PT 15.3 Seconds (9.9-11.8) H 10/12/16 06:00 INR 1.42 (0.93-1.08) H 10/12/16 06:00 APTT 46.0 Seconds (23.7-30.8) H 10/12/16 06:00 - Additional Findings Additional findings: - Constitutional Appears: No Acute Distress - Head Exam Head Exam: ATRAUMATIC, NORMAL INSPECTION, NORMOCEPHALIC - Eye Exam Eye Exam: EOMI, PERRL - ENT Exam ENT Exam: Mucous Membranes Moist - Neck Exam Neck exam: Positive for: Normal Inspection - Respiratory Exam Respiratory Exam: Clear to Auscultation Bilateral, NORMAL BREATHING PATTERN - Cardiovascular Exam Cardiovascular Exam: REGULAR RHYTHM, +S1, +S2 - GI/Abdominal Exam GI & Abdominal Exam: Normal Bowel Sounds, Soft. absent: Tenderness - Extremities Exam Extremities exam: Negative for: calf tenderness Additional comments: bilateral femoral pulses palpable, Right DP, PT not palpable, faintly found on doppler Left DP,PT not palpable but found with doppler, right lower extremity cool to touch compared to left lower extremity, poor capillary refill time 4 seconds right lower extremity, Left lower extremity 3 seconds, no calf tenderness to compression - Neurological Exam Neurological exam: Alert, CN II-XII Intact, Oriented x3 - Psychiatric Exam Psychiatric exam: Normal Affect, Normal Mood - Skin Skin Exam: Dry Additional comments: right lower extremity noted to be cool to touch with pale color more then compared with left, left lower extremity with adequate warmth Assessment and Plan - Assessment and Plan (Free Text) Assessment: 66 y/o female with severe PAD s/p bilateral fem-pop bypasses w/ chronic LE ischemia 2/2 bypass occlusion -ischemia is chronic in nature, no surgical intervention at this time -continue to follow Dr. Talbot recommendations -cont anticoagulation will d/w with attending. <Jayme Rutledge - Last Filed: 11/07/16 23:28> Objective - Vital Signs/Intake and Output Vital Signs (last 24 hours): Temp Pulse Resp BP Pulse Ox 98.7 F 74 21 118/84 99 10/17/16 12:00 10/17/16 16:00 10/17/16 16:00 10/17/16 14:28 10/17/16 00:01 - Labs Labs: 10/17/16 05:15 10/17/16 05:15 PT 12.5 Seconds (9.9-11.8) H 10/13/16 06:00 INR 1.16 (0.93-1.08) H 10/13/16 06:00 APTT 62.6 Seconds (23.7-30.8) H 10/17/16 05:15 Assessment and Plan - Assessment and Plan (Free Text) Plan: Patient was seen and examined by me. I agree with assessment and plan as per resident's note.
[2016-10-12] MEDS: ceFAZolin 1 gm in NS 1 GM/100 ML BAG IVPB SCH ×2 (08:43→11:17)
[2016-10-12] MEDS: Cilostazol 100 mg Tab UD PO SCH ×3 (08:49→19:27)
[2016-10-12] MEDS: Levothyroxine 100 MCG TAB PO SCH (09:41)
--- NOTE | 2016-10-12 12:58 | CP.PCM.PN ---
<Diallo Reid - Last Filed: 10/12/16 12:48> Subjective - Date & Time of Evaluation Date of Evaluation: 10/12/16 Time of Evaluation: 12:48 - Subjective Subjective: 66 year old female patient with PAD was seen at bedside ICU this morning. Patient admits to pain to right lower extremity. Patient denies of any N/V/F/C or SOB today Objective - Vital Signs/Intake and Output Vital Signs (last 24 hours): Temp Pulse Resp BP Pulse Ox 98.5 F 86 16 139/69 90 L 10/12/16 08:00 10/12/16 11:00 10/12/16 11:00 10/12/16 11:00 10/12/16 11:00 Intake and Output: 10/12/16 10/12/16 06:59 18:59 Intake Total 1550 Output Total 1000 Balance 550 - Medications Medications: Current Medications Acetaminophen (Tylenol 325mg Tab) 650 mg PO Q6H PRN PRN Reason: Pain, Mild (1-3) Acetaminophen (Tylenol 325mg Tab) 650 mg PO Q4H PRN PRN Reason: Pain, Mild (1-3) Atorvastatin Calcium (Lipitor) 20 mg PO DIN [facility] Cilostazol (Pletal) 100 mg PO BID [facility] Last Admin: 10/12/16 09:34 Dose: Not Given Clopidogrel Bisulfate (Plavix) 75 mg PO DAILY [facility] Last Admin: 10/12/16 09:34 Dose: Not Given Gabapentin (Neurontin) 600 mg PO BID [facility] PRN Reason: Protocol Last Admin: 10/12/16 09:34 Dose: 600 mg Hydralazine HCl (Apresoline) 10 mg IVP Q6 PRN PRN Reason: HTN Last Admin: 10/12/16 02:28 Dose: 10 mg Hydromorphone HCl (Dilaudid) 2 mg IVP Q4H PRN PRN Reason: Pain, severe (8-10) Last Admin: 10/12/16 03:06 Dose: 2 mg Heparin Sodium/Dextrose (Heparin 25,000 Units/250ml In D5w) 25,000 units in 250 mls @ 16.329 mls/hr IV .[id number] PRN; Protocol; 18 UNITS/KG/HR PRN Reason: ADJUST RATE PER PROTOCOL Last Admin: 10/11/16 14:18 Dose: 15 units/kg/hr, 13.608 mls/hr Sodium Chloride (Sodium Chloride 0.9%) 1,000 mls @ 100 mls/hr IV .Q10H [facility] Last Admin: 10/12/16 06:27 Dose: 100 mls/hr Cefazolin Sodium (Ancef 1gm In Ns) 1 gm in 100 mls @ 100 mls/hr IVPB QAM [facility] PRN Reason: Protocol Last Admin: 10/12/16 11:17 Dose: Not Given Alteplase, Recombinant 10 mg/ (Sodium Chloride) 500 mls @ 30 mls/hr IV Q16H [facility] Last Admin: 10/12/16 06:21 Dose: 30 mls/hr Levothyroxine Sodium (Synthroid) 100 mcg PO DAILY [facility] Last Admin: 10/12/16 09:41 Dose: 100 mcg Lorazepam (Ativan) 2 mg IVP Q6H PRN PRN Reason: Anxiety Last Admin: 10/11/16 21:00 Dose: 2 mg Losartan Potassium (Cozaar) 50 mg PO DAILY [facility] Last Admin: 10/12/16 09:33 Dose: Not Given Nicotine (Nicoderm Cq) 1 patch TD DAILY [facility] Ondansetron HCl (Zofran Inj) 4 mg IVP Q4H PRN PRN Reason: Nausea/Vomiting Last Admin: 10/11/16 20:09 Dose: 4 mg Oxycodone/Acetaminophen (Percocet 5/325 Mg Tab) 1 tab PO Q6H PRN PRN Reason: Pain, moderate (4-7) Stop: 10/14/16 18:56 Pantoprazole Sodium (Protonix Inj) 40 mg IVP DAILY [facility] Last Admin: 10/12/16 09:34 Dose: Not Given - Labs Labs: 10/12/16 06:00 10/12/16 06:00 PT 15.3 Seconds (9.9-11.8) H 10/12/16 06:00 INR 1.42 (0.93-1.08) H 10/12/16 06:00 APTT 46.0 Seconds (23.7-30.8) H 10/12/16 06:00 - Head Exam Head Exam: ATRAUMATIC - Extremities Exam Additional comments: Bilateral lower extremities exam DERM Right: No open wound is noted. Slight dusky color change to the right lower extremity distal to ankle as compared to that of Left lower extremity. No erythema is noted. No drainage is noted. No sign of acute infection is noted. Left: No open wound is noted. No erythema is noted. No drainage is noted. No sign of acute infection is noted. VASC: Right: Capillary refill time is increased for all the digits to right foot >3 seconds. Skin cold to touch Left: [employer] for Left is <3 seconds to all digits. Skin warm to touch ORTHO: Slight atrophy noted to the musculature of the right lower extremity as compared to that of the Left. Pain on palpation to joints distal to right ankle. No pain is induced for left lower extremity. - Neurological Exam Neurological Exam: Alert, Awake Assessment and Plan - Assessment and Plan (Free Text) Assessment: 66 yo female patient with PAD: right lower extremity ischemia Plan: Patient was seen, evaluated at bedside Labs and vitals reviewed Continue to follow Dr. Talbot recommendations Continue anticoagulation Podiatry will continue to follow in house <Stephon Franco - Last Filed: 10/15/16 12:06> Objective - Vital Signs/Intake and Output Vital Signs (last 24 hours): Temp Pulse Resp BP Pulse Ox 98.3 F 77 29 H 126/52 L 97 10/15/16 05:53 10/15/16 09:40 10/15/16 09:26 10/15/16 09:40 10/15/16 09:26 Intake and Output: 10/15/16 10/15/16 06:59 18:59 Intake Total 564 Output Total 700 Balance -136 - Medications Medications: Current Medications Acetaminophen (Tylenol 325mg Tab) 650 mg PO Q6H PRN PRN Reason: Pain, Mild (1-3) Acetaminophen (Tylenol 325mg Tab) 650 mg PO Q4H PRN PRN Reason: Pain, Mild (1-3) Atorvastatin Calcium (Lipitor) 20 mg PO DIN [facility] Last Admin: 10/14/16 17:34 Dose: 20 mg Cilostazol (Pletal) 100 mg PO BID [facility] Last Admin: 10/15/16 09:41 Dose: 100 mg Clopidogrel Bisulfate (Plavix) 75 mg PO DAILY [facility] Last Admin: 10/15/16 09:40 Dose: 75 mg Gabapentin (Neurontin) 600 mg PO BID [facility] PRN Reason: Protocol Last Admin: 10/15/16 09:40 Dose: 600 mg Hydralazine HCl (Apresoline) 10 mg IVP Q6 PRN PRN Reason: HTN Last Admin: 10/12/16 02:28 Dose: 10 mg Hydromorphone HCl (Dilaudid) 2 mg IVP Q4H PRN PRN Reason: Pain, severe (8-10) Last Admin: 10/15/16 09:41 Dose: 2 mg Heparin Sodium/Dextrose (Heparin 25,000 Units/250ml In D5w) 25,000 units in 250 mls @ 16.329 mls/hr IV .[id number] PRN; Protocol; 18 UNITS/KG/HR PRN Reason: ADJUST RATE PER PROTOCOL Last Titration: 10/15/16 06:50 Dose: 16.97 units/kg/hr, 15.4 mls/hr Cefazolin Sodium (Ancef 1gm In Ns) 1 gm in 100 mls @ 100 mls/hr IVPB QAM [facility] PRN Reason: Protocol Last Admin: 10/15/16 09:41 Dose: 100 mls/hr Potassium Chloride (Potassium Chloride 20 Meq/100 Ml) 20 meq in 100 mls @ 50 mls/hr IVPB BID [facility] Stop: 10/15/16 19:59 Last Admin: 10/15/16 08:23 Dose: 50 mls/hr Levothyroxine Sodium (Synthroid) 100 mcg PO DAILY [facility] Last Admin: 10/15/16 09:40 Dose: 100 mcg Lorazepam (Ativan) 2 mg IVP Q6H PRN PRN Reason: Anxiety Last Admin: 10/11/16 21:00 Dose: 2 mg Losartan Potassium (Cozaar) 50 mg PO DAILY [facility] Last Admin: 10/15/16 09:40 Dose: 50 mg Nicotine (Nicoderm Cq) 1 patch TD DAILY [facility] Last Admin: 10/14/16 10:52 Dose: 1 patch Ondansetron HCl (Zofran Inj) 4 mg IVP Q4H PRN PRN Reason: Nausea/Vomiting Last Admin: 10/11/16 20:09 Dose: 4 mg Pantoprazole Sodium (Protonix Ec Tab) 40 mg PO 0600 [facility] Last Admin: 10/14/16 05:31 Dose: 40 mg - Labs Labs: 10/14/16 06:05 10/15/16 06:30 PT 12.5 Seconds (9.9-11.8) H 10/13/16 06:00 INR 1.16 (0.93-1.08) H 10/13/16 06:00 APTT 44.7 Seconds (23.7-30.8) H 10/15/16 06:00 Attending/Attestation - Attestation I have personally seen and examined this patient.: Yes I have fully participated in the care of the patient.: Yes I have reviewed all pertinent clinical information, including history, physical exam and plan: Yes
[2016-10-12] MEDS ORDERED: Lidocaine 2% Inj (20ml) ONE (16:15)
[2016-10-12] MEDS ORDERED: Iodixanol 320 MG/ML 200 ML BOTTLE IV ONE (16:22)
[2016-10-12] MEDS ORDERED: Midazolam 2 MG/2 ML VIAL ONE ×2 (16:22→17:06)
[2016-10-12] MEDS ORDERED: Iodixanol 320 MG/ML 100 ML BOTTLE IV ONE ×2 (16:29→17:31)
[2016-10-12] MEDS ORDERED: Nitroglycerin 50mg in D5W 50 MG/250 ML BOTTLE IV ONE (16:39)
[2016-10-12] MEDS ORDERED: Heparin 25,000units in D5W 25,000 UNITS/250 ML BAG IV ONE (17:46)
--- NOTE | 2016-10-12 18:28 | CP.PCM.PN ---
<HALEIGH HOPKINS - Last Filed: 10/12/16 18:24> Subjective - Date & Time of Evaluation Date of Evaluation: 10/12/16 Time of Evaluation: 07:30 - Subjective Subjective: Anujloni Charles DO PGY1 - ICU Progress Note Patient seen and examined at bedside. Nurses reported that overnight, no pulses were palpable, or audible by doppler. Only required pain medication once. Today , patient reports that right foot is still cold, numb, and painful. She denies any change in her symptoms, denies CP, SOB, abdominal pain, N/V/D/C, fever, chills. Objective - Vital Signs/Intake and Output Vital Signs (last 24 hours): Temp Pulse Resp BP Pulse Ox 99.4 F 74 20 146/74 90 L 10/12/16 16:00 10/12/16 18:11 10/12/16 18:11 10/12/16 18:11 10/12/16 18:11 Intake and Output: 10/12/16 10/12/16 06:59 18:59 Intake Total 1550 50 Output Total 1000 Balance 550 50 - Medications Medications: Current Medications Acetaminophen (Tylenol 325mg Tab) 650 mg PO Q6H PRN PRN Reason: Pain, Mild (1-3) Acetaminophen (Tylenol 325mg Tab) 650 mg PO Q4H PRN PRN Reason: Pain, Mild (1-3) Atorvastatin Calcium (Lipitor) 20 mg PO DIN [facility] Last Admin: 10/12/16 18:15 Dose: Not Given Cilostazol (Pletal) 100 mg PO BID [facility] Last Admin: 10/12/16 09:34 Dose: Not Given Clopidogrel Bisulfate (Plavix) 75 mg PO DAILY [facility] Last Admin: 10/12/16 09:34 Dose: Not Given Gabapentin (Neurontin) 600 mg PO BID [facility] PRN Reason: Protocol Last Admin: 10/12/16 18:15 Dose: Not Given Hydralazine HCl (Apresoline) 10 mg IVP Q6 PRN PRN Reason: HTN Last Admin: 10/12/16 02:28 Dose: 10 mg Hydromorphone HCl (Dilaudid) 2 mg IVP Q4H PRN PRN Reason: Pain, severe (8-10) Last Admin: 10/12/16 03:06 Dose: 2 mg Heparin Sodium/Dextrose (Heparin 25,000 Units/250ml In D5w) 25,000 units in 250 mls @ 16.329 mls/hr IV .[id number] PRN; Protocol; 18 UNITS/KG/HR PRN Reason: ADJUST RATE PER PROTOCOL Last Titration: 10/12/16 18:14 Dose: 18 units/kg/hr, 16.329 mls/hr Sodium Chloride (Sodium Chloride 0.9%) 1,000 mls @ 100 mls/hr IV .Q10H [facility] Last Admin: 10/12/16 06:27 Dose: 100 mls/hr Cefazolin Sodium (Ancef 1gm In Ns) 1 gm in 100 mls @ 100 mls/hr IVPB QAM [facility] PRN Reason: Protocol Last Admin: 10/12/16 11:17 Dose: Not Given Alteplase, Recombinant 10 mg/ (Sodium Chloride) 500 mls @ 30 mls/hr IV Q16H [facility] Last Admin: 10/12/16 06:21 Dose: 30 mls/hr Levothyroxine Sodium (Synthroid) 100 mcg PO DAILY [facility] Last Admin: 10/12/16 09:41 Dose: 100 mcg Lorazepam (Ativan) 2 mg IVP Q6H PRN PRN Reason: Anxiety Last Admin: 10/11/16 21:00 Dose: 2 mg Losartan Potassium (Cozaar) 50 mg PO DAILY [facility] Last Admin: 10/12/16 09:33 Dose: Not Given Nicotine (Nicoderm Cq) 1 patch TD DAILY [facility] Last Admin: 10/12/16 18:16 Dose: 1 patch Ondansetron HCl (Zofran Inj) 4 mg IVP Q4H PRN PRN Reason: Nausea/Vomiting Last Admin: 10/11/16 20:09 Dose: 4 mg Oxycodone/Acetaminophen (Percocet 5/325 Mg Tab) 1 tab PO Q6H PRN PRN Reason: Pain, moderate (4-7) Stop: 10/14/16 18:56 Pantoprazole Sodium (Protonix Ec Tab) 40 mg PO 0600 [facility] - Labs Labs: 10/12/16 06:00 10/12/16 06:00 PT 15.3 Seconds (9.9-11.8) H 10/12/16 06:00 INR 1.42 (0.93-1.08) H 10/12/16 06:00 APTT 46.0 Seconds (23.7-30.8) H 10/12/16 06:00 - Constitutional Appears: Non-toxic, No Acute Distress, Chronically Ill - Head Exam Head Exam: ATRAUMATIC, NORMOCEPHALIC - Eye Exam Eye Exam: EOMI, PERRL - ENT Exam ENT Exam: Mucous Membranes Moist - Neck Exam Neck Exam: Normal Inspection. absent: Lymphadenopathy, Thyromegaly - Respiratory Exam Respiratory Exam: Clear to Ausculation Bilateral. absent: Rales, Rhonchi, Wheezes - Cardiovascular Exam Cardiovascular Exam: RRR, +S1, +S2 - GI/Abdominal Exam GI & Abdominal Exam: Soft. absent: Firm, Guarding, Rigid, Tenderness, Pulsatile Mass - Extremities Exam Additional comments: B/L groin no expanding hematomas, no bruits Right foot: pale, cool, cyanotic digits 2-5, DP and PT pulses nonpalpable and inaudible with doppler, hyperesthetic, poor proprioception, delayed capillary refill Left foot: grossly normal - Neurological Exam Neurological Exam: Alert, Awake, Oriented x3 - Psychiatric Exam Psychiatric exam: Normal Affect, Normal Mood - Skin Skin Exam: Dry, Intact Assessment and Plan - Assessment and Plan (Free Text) Assessment: 66 yo F admitted to ICU s/p intraarterial thrombolysis with EKOS catheter placement in right femoral-popliteal bypass graft, with PMH significant for PAD s/p b/l femoral bypass graft that has occluded, CAD, HTN, [place], HLD, and hypothyroidism. Plan: Neuro: - A&Ox3 - Stable, continue to monitor Pulm: - Hx of tobacco abuse and COPD - Start nicotine patch - Saturating well on O2 via NC 2L - ABG, CXR CV: - H/o PAD, HTN, CAD, Hx of NJ - s/p intraarterial thrombolysis with EKOS catheter placement in right femoral- popliteal bypass graft - Maintain limited mobility with sedation as needed - Continue Q1 pulse checks - Will be taken back to vascular lab today for repeat angiogram - Pain control with dilauded, percocent, neurontin, tylenol - On heparin gtt - Continue Liptor, cilastazol - IVF NS @ 100mL/Hr - Will allow for permissive HTN at this point with continued monitoring - On Losartan, Hydralazine 10mg IV Q6prn >180 systolic BP - H/o Continue pletal, plavix - Hemodynamically stable - Maintain MAP>65 Renal: - Monitor and replete lytes as needed - Maintain euvolemia GI: - NPO - Protonix Endo: - TSH 2.4, on levothyroxine - Maintain euglycemia ID: - Persistent leukocytosis, afebrile - No apparent sources of infection - Continue to monitor Hem/Onc: - H/H stable, no active bleed - Continue to monitor GI/DVT ppx: Protonix and Heparin gtt Case discussed and reviewed with attending <Stephen Ceja MD - Last Filed: 10/13/16 08:32> Objective - Vital Signs/Intake and Output Vital Signs (last 24 hours): Temp Pulse Resp BP Pulse Ox 98.4 F 82 23 116/55 L 92 L 10/13/16 04:00 10/13/16 08:00 10/13/16 08:00 10/13/16 08:00 10/13/16 08:00 Intake and Output: 10/13/16 10/13/16 06:59 18:59 Intake Total 1686 Output Total 900 Balance 786 - Medications Medications: Current Medications Acetaminophen (Tylenol 325mg Tab) 650 mg PO Q6H PRN PRN Reason: Pain, Mild (1-3) Acetaminophen (Tylenol 325mg Tab) 650 mg PO Q4H PRN PRN Reason: Pain, Mild (1-3) Atorvastatin Calcium (Lipitor) 20 mg PO DIN [facility] Last Admin: 10/12/16 18:15 Dose: Not Given Cilostazol (Pletal) 100 mg PO BID [facility] Last Admin: 10/12/16 19:27 Dose: 100 mg Clopidogrel Bisulfate (Plavix) 75 mg PO DAILY [facility] Last Admin: 10/12/16 09:34 Dose: Not Given Gabapentin (Neurontin) 600 mg PO BID [facility] PRN Reason: Protocol Last Admin: 10/12/16 18:15 Dose: Not Given Hydralazine HCl (Apresoline) 10 mg IVP Q6 PRN PRN Reason: HTN Last Admin: 10/12/16 02:28 Dose: 10 mg Hydromorphone HCl (Dilaudid) 2 mg IVP Q4H PRN PRN Reason: Pain, severe (8-10) Last Admin: 10/12/16 19:54 Dose: 2 mg Heparin Sodium/Dextrose (Heparin 25,000 Units/250ml In D5w) 25,000 units in 250 mls @ 16.329 mls/hr IV .[id number] PRN; Protocol; 18 UNITS/KG/HR PRN Reason: ADJUST RATE PER PROTOCOL Last Admin: 10/13/16 00:11 Dose: 15 units/kg/hr, 13.608 mls/hr Sodium Chloride (Sodium Chloride 0.9%) 1,000 mls @ 100 mls/hr IV .Q10H [facility] Last Admin: 10/13/16 06:52 Dose: 100 mls/hr Cefazolin Sodium (Ancef 1gm In Ns) 1 gm in 100 mls @ 100 mls/hr IVPB QAM [facility] PRN Reason: Protocol Last Admin: 10/12/16 11:17 Dose: Not Given Levothyroxine Sodium (Synthroid) 100 mcg PO DAILY [facility] Last Admin: 10/12/16 09:41 Dose: 100 mcg Lorazepam (Ativan) 2 mg IVP Q6H PRN PRN Reason: Anxiety Last Admin: 10/11/16 21:00 Dose: 2 mg Losartan Potassium (Cozaar) 50 mg PO DAILY [facility] Last Admin: 10/12/16 09:33 Dose: Not Given Nicotine (Nicoderm Cq) 1 patch TD DAILY [facility] Last Admin: 10/12/16 18:16 Dose: 1 patch Ondansetron HCl (Zofran Inj) 4 mg IVP Q4H PRN PRN Reason: Nausea/Vomiting Last Admin: 10/11/16 20:09 Dose: 4 mg Oxycodone/Acetaminophen (Percocet 5/325 Mg Tab) 1 tab PO Q6H PRN PRN Reason: Pain, moderate (4-7) Stop: 10/14/16 18:56 Pantoprazole Sodium (Protonix Ec Tab) 40 mg PO 0600 [facility] Last Admin: 10/13/16 07:38 Dose: 40 mg - Labs Labs: 10/13/16 06:00 PT 12.5 Seconds (9.9-11.8) H 10/13/16 06:00 INR 1.16 (0.93-1.08) H 10/13/16 06:00 APTT 59.9 Seconds (23.7-30.8) H 10/13/16 06:00 Attending/Attestation - Attestation I have personally seen and examined this patient.: Yes I have fully participated in the care of the patient.: Yes I have reviewed all pertinent clinical information, including history, physical exam and plan: Yes Notes (Text): 10/13/16 08:30 66 y/o F w/ R ischemic leg s/p multiple Interventional vascular procedure (EKOS ) Currently has R Doppler pulse and is not complaining of any pain. On Heparin protocol. COPd baseline not in any apparent resp distress. paln per IR and PCP cc time 55 min
--- NOTE | 2016-10-12 19:03 | CP.PCM.HP ---
History of Present Illness - History of Present Illness History of Present Illness: PLEASE DISREGARD THIS NOTE Present on Admission - Present on Admission Any Indicators Present on Admission: No Past Patient History - Infectious Disease Hx of Infectious Diseases: None - Past Medical History & Family History Past Medical History?: Yes - Past Social History Smoking Status: Heavy Smoker > 10 Cigarettes Daily Alcohol: None Drugs: Denies - CARDIAC Hx Cardiac Disorders: Yes Hx Heart Attack: Yes (14 yrs ago) Hx Hypertension: Yes Hx Peripheral Vascular Disease: Yes - PULMONARY Hx Respiratory Disorders: No Hx Chronic Obstructive Pulmonary Disease (COPD): Yes - NEUROLOGICAL Hx Neurological Disorder: No - HEENT Hx HEENT Problems: No - RENAL Hx Chronic Kidney Disease: No - ENDOCRINE/METABOLIC Hx Endocrine Disorders: Yes Hx Hypothyroidism: Yes - HEMATOLOGICAL/ONCOLOGICAL Hx Blood Disorders: No - INTEGUMENTARY Hx Dermatological Problems: No - MUSCULOSKELETAL/RHEUMATOLOGICAL Hx Musculoskeletal Disorders: No Hx Falls: No - GASTROINTESTINAL Hx Gastrointestinal Disorders: No - GENITOURINARY/GYNECOLOGICAL Hx Genitourinary Disorders: No - PSYCHIATRIC Hx Psychophysiologic Disorder: No Hx Depression: No Hx Emotional Abuse: No Hx Physical Abuse: No Hx Substance Use: No - SURGICAL HISTORY Hx Angiogram: Yes (RIGHT 2012; BIN 10/02/13; LEFT 01/04/14) Hx Appendectomy: Yes Hx Cardiac Catheterization: Yes Hx Cholecystectomy: Yes (1968) Other/Comment: R femoral pop bypass - ANESTHESIA Hx Anesthesia: Yes Hx Anesthesia Reactions: No Hx Malignant Hyperthermia: No Meds Allergies/Adverse Reactions: Allergies Allergy/AdvReac Type Severity Reaction Status Date / Time aspirin [From Soma Compound] Allergy RASH Verified 10/10/16 15:46 carisoprodol Allergy RASH Verified 10/10/16 15:46 [From Soma Compound] Physical Exam - Additional Findings Additional findings: Phys Exam: VS as below Constitutional: a&o x 4, nad Head and Neck: neck supple, no jvd, trachea midline, carotid midline, no cervical/head mass Eyes: jon, nonicteric sclera, eom intact ENT: auditory acuity grossly intact, throat not congested, no nasal deformity Cardio: rrr, no m/r/g, no carotid bruit, nml s1, s2 Pulm: no accessory muscle use, equal nml breath sounds bilaterally, ctab Abd: s/nt/nd, nbs x 4 q, no palpable masses Derm: no rashes, no ulcers, no lesions Extr: bilateral femoral pulses palpable, distal pulses not palpable. bilateral LEs cool but not cold. capillary refill time 3 secs bilaterally. no calf tenderness to compression. patient able to freely move LEs without pain Neuro: cn II-XII grossly intact, ue and le 5/5 muscle strength bilaterally, no los ue, le bilaterally and core Results - Vital Signs Recent Vital Signs: Last Vital Signs Temp 99.4 F 10/12/16 16:00 Pulse 74 10/12/16 18:11 Resp 20 10/12/16 18:11 BP 146/74 10/12/16 18:11 Pulse Ox 90 L 10/12/16 18:11 - Labs Result Diagrams: 10/13/16 06:00 10/13/16 06:00 Labs: Laboratory Results - last 24 hr 10/11/16 10/11/16 10/11/16 19:30 19:30 22:30 WBC 13.6 H RBC 4.66 Hgb 15.0 Hct 44.4 MCV 95.3 MCH 32.2 MCHC 33.8 RDW 13.3 Plt Count 286 MPV 9.5 Gran % 63.6 Lymph % (Auto) 28.7 Randolph % (Auto) 5.8 Eos % (Auto) 1.5 Baso % (Auto) 0.4 Gran # 8.67 H Lymph # 3.9 H Randolph # 0.8 H Eos # 0.2 Baso # 0.05 PT INR APTT 30.0 pCO2 50 H pO2 67.0 L HCO3 23.5 ABG pH 7.28 L ABG Total CO2 25.0 ABG O2 Saturation 95.9 ABG O2 Content 18.8 ABG Base Excess -3.8 L ABG Hemoglobin 14.5 ABG Carboxyhemoglobin 2.4 H POC ABG HHb (Measured) 3.9 ABG Methemoglobin 1.4 ABG O2 Capacity 19.6 Hgb O2 Saturation 92.3 L FiO2 32.0 Sodium Potassium Chloride Carbon Dioxide Anion Gap BUN Creatinine Est GFR ( Amer) Est GFR (Non-Af Amer) Random Glucose Calcium Total Bilirubin AST ALT Alkaline Phosphatase Total Protein Albumin Globulin Albumin/Globulin Ratio TSH 3rd Generation 10/12/16 10/12/16 10/12/16 06:00 06:00 06:00 WBC 18.1 H D RBC 4.60 Hgb 14.7 Hct 43.4 MCV 94.3 MCH 32.0 MCHC 33.9 RDW 13.4 Plt Count 228 MPV 9.4 Gran % Lymph % (Auto) Randolph % (Auto) Eos % (Auto) Baso % (Auto) Gran # Lymph # Randolph # Eos # Baso # PT 15.3 H INR 1.42 H APTT 46.0 H pCO2 pO2 HCO3 ABG pH ABG Total CO2 ABG O2 Saturation ABG O2 Content ABG Base Excess ABG Hemoglobin ABG Carboxyhemoglobin POC ABG HHb (Measured) ABG Methemoglobin ABG O2 Capacity Hgb O2 Saturation FiO2 Sodium 139 Potassium 3.7 Chloride 105 Carbon Dioxide 25 Anion Gap 13 BUN 7 Creatinine 0.6 Est GFR ( Amer) > 60 Est GFR (Non-Af Amer) > 60 Random Glucose 132 H Calcium 8.4 Total Bilirubin 0.6 AST 36 ALT 22 Alkaline Phosphatase 107 Total Protein 6.9 Albumin 3.6 Globulin 3.3 Albumin/Globulin Ratio 1.1 TSH 3rd Generation 10/12/16 06:00 WBC RBC Hgb Hct MCV MCH MCHC RDW Plt Count MPV Gran % Lymph % (Auto) Randolph % (Auto) Eos % (Auto) Baso % (Auto) Gran # Lymph # Randolph # Eos # Baso # PT INR APTT pCO2 pO2 HCO3 ABG pH ABG Total CO2 ABG O2 Saturation ABG O2 Content ABG Base Excess ABG Hemoglobin ABG Carboxyhemoglobin POC ABG HHb (Measured) ABG Methemoglobin ABG O2 Capacity Hgb O2 Saturation FiO2 Sodium Potassium Chloride Carbon Dioxide Anion Gap BUN Creatinine Est GFR ( Amer) Est GFR (Non-Af Amer) Random Glucose Calcium Total Bilirubin AST ALT Alkaline Phosphatase Total Protein Albumin Globulin Albumin/Globulin Ratio TSH 3rd Generation 2.40 Assessment & Plan - Assessment and Plan (Free Text) Assessment: 66 yo F with vasculopathy with bilateral femoral popliteal grafts, 78 pack year history of smoking, CAD with history of DC in 1999, who presents with RLE pain. Patient was scheduled to see Dr. Jeremias Talbot tomorrow, but due to the severity of symptoms, color changes, numbness, and pallor in the RLE, she came to ED. Patient started on heparin drip, vascular surgery and interventional radiology consulted.
--- NOTE | 2016-10-12 19:11 | CP.PCM.PN ---
Subjective - Date & Time of Evaluation Date of Evaluation: 10/12/16 Time of Evaluation: 06:55 - Subjective Subjective: Pt s/e bedside. Patient's right foot looks much worse than yesterday. Still cold to touch, but color has now changed. IR note pending. Pt denies SOB/CP; No F/Ch/N/V/D. No gangrenous changes of toes Objective - Vital Signs/Intake and Output Vital Signs (last 24 hours): Temp Pulse Resp BP Pulse Ox 99.4 F 74 20 146/74 90 L 10/12/16 16:00 10/12/16 18:11 10/12/16 18:11 10/12/16 18:11 10/12/16 18:11 Intake and Output: 10/12/16 10/13/16 18:59 06:59 Intake Total 1050 Output Total 1100 Balance -50 - Medications Medications: Current Medications Acetaminophen (Tylenol 325mg Tab) 650 mg PO Q6H PRN PRN Reason: Pain, Mild (1-3) Acetaminophen (Tylenol 325mg Tab) 650 mg PO Q4H PRN PRN Reason: Pain, Mild (1-3) Atorvastatin Calcium (Lipitor) 20 mg PO DIN [facility] Last Admin: 10/12/16 18:15 Dose: Not Given Cilostazol (Pletal) 100 mg PO BID [facility] Last Admin: 10/12/16 09:34 Dose: Not Given Clopidogrel Bisulfate (Plavix) 75 mg PO DAILY [facility] Last Admin: 10/12/16 09:34 Dose: Not Given Gabapentin (Neurontin) 600 mg PO BID [facility] PRN Reason: Protocol Last Admin: 10/12/16 18:15 Dose: Not Given Hydralazine HCl (Apresoline) 10 mg IVP Q6 PRN PRN Reason: HTN Last Admin: 10/12/16 02:28 Dose: 10 mg Hydromorphone HCl (Dilaudid) 2 mg IVP Q4H PRN PRN Reason: Pain, severe (8-10) Last Admin: 10/12/16 03:06 Dose: 2 mg Heparin Sodium/Dextrose (Heparin 25,000 Units/250ml In D5w) 25,000 units in 250 mls @ 16.329 mls/hr IV .[id number] PRN; Protocol; 18 UNITS/KG/HR PRN Reason: ADJUST RATE PER PROTOCOL Last Titration: 10/12/16 18:14 Dose: 18 units/kg/hr, 16.329 mls/hr Sodium Chloride (Sodium Chloride 0.9%) 1,000 mls @ 100 mls/hr IV .Q10H [facility] Last Admin: 10/12/16 06:27 Dose: 100 mls/hr Cefazolin Sodium (Ancef 1gm In Ns) 1 gm in 100 mls @ 100 mls/hr IVPB QAM FAWAD PRN Reason: Protocol Last Admin: 10/12/16 11:17 Dose: Not Given Alteplase, Recombinant 10 mg/ (Sodium Chloride) 500 mls @ 30 mls/hr IV Q16H [facility] Last Admin: 10/12/16 06:21 Dose: 30 mls/hr Levothyroxine Sodium (Synthroid) 100 mcg PO DAILY [facility] Last Admin: 10/12/16 09:41 Dose: 100 mcg Lorazepam (Ativan) 2 mg IVP Q6H PRN PRN Reason: Anxiety Last Admin: 10/11/16 21:00 Dose: 2 mg Losartan Potassium (Cozaar) 50 mg PO DAILY [facility] Last Admin: 10/12/16 09:33 Dose: Not Given Nicotine (Nicoderm Cq) 1 patch TD DAILY [facility] Last Admin: 10/12/16 18:16 Dose: 1 patch Ondansetron HCl (Zofran Inj) 4 mg IVP Q4H PRN PRN Reason: Nausea/Vomiting Last Admin: 10/11/16 20:09 Dose: 4 mg Oxycodone/Acetaminophen (Percocet 5/325 Mg Tab) 1 tab PO Q6H PRN PRN Reason: Pain, moderate (4-7) Stop: 10/14/16 18:56 Pantoprazole Sodium (Protonix Ec Tab) 40 mg PO 0600 [facility] - Labs Labs: 10/12/16 06:00 10/12/16 06:00 PT 15.3 Seconds (9.9-11.8) H 10/12/16 06:00 INR 1.42 (0.93-1.08) H 10/12/16 06:00 APTT 46.0 Seconds (23.7-30.8) H 10/12/16 06:00 - Additional Findings Additional findings: Phys Exam: VS as below Constitutional: a&o x 4, nad Head and Neck: neck supple, no jvd, trachea midline, carotid midline, no cervical/head mass Eyes: jon, nonicteric sclera, eom intact ENT: auditory acuity grossly intact, throat not congested, no nasal deformity Cardio: rrr, no m/r/g, no carotid bruit, nml s1, s2 Pulm: no accessory muscle use, equal nml breath sounds bilaterally, ctab Abd: s/nt/nd, nbs x 4 q, no palpable masses Derm: no rashes, no ulcers, no lesions Extr: bilateral femoral pulses palpable, distal pulses not palpable on right. bilateral LEs cool but right is cold. capillary refill time 3 secs on left, severely delayed on right. no calf tenderness to compression. patient able to freely move LLE without pain; Not able to wiggle right toes. Right foot discolored. Neuro: cn II-XII grossly intact, ue and le 5/5 muscle strength bilaterally, no los ue, le bilaterally and core Assessment and Plan - Assessment and Plan (Free Text) Assessment: 66 yo F with vasculopathy with bilateral femoral popliteal grafts, 78 pack year history of smoking, CAD with history of FL in 1999, who presents with RLE pain. Patient was scheduled to see Dr. Jeremias Talbot tomorrow, but due to the severity of symptoms, color changes, numbness, and pallor in the RLE, she came to ED. Patient started on heparin drip, vascular surgery and interventional radiology consulted. Plan: 1) Right LE pain secondary to PVD - See details of CT above - Vascular surgery: Dr. Jeremias Talbot - Interventional Radiology consulted: Dr. Jeremias Talobt. Took pt for procedure today at 3:15 angiogram of RLE - General Surg consulted: Dr. Parkinson -Ischemia appears to be chronic in nature, not acute -LE fed by collaterals -Will f/u IR, Dr. Talbot recommendations -If unable to revascularize may need further surgical intervention -Cont anticoagulation -No acute surgical intervention at this time -Second angiogram today, 10/12: report pending - Patient is NPO, except for medications - Monitor distal pulses q4h - Vitals q8h - Heparin drip - PT/PTT per protocol - Analgesia with Morphine 2 mg IVP q4h PRN, Percocet PRN, Tylenol PRN - Atorvastatin 20 mg PO DIN - C/W home Cilostazol 100 mg PO BID - Holding/stopped home NSAIDs 2) CAD - C/W Plavix 75 mg PO daily - C/W Atorvastatin as detailed above, dual benefit in this patient - C/W Losartan 50 mg PO daily 3) Peripheral neuropathy, most likely secondary to Peripheral Vascular Disease - C/W Neurontin 600 mg BID 4) Hypothyroidism C/W Levothyroxine 100 mcg PO daily 5) GI prophylaxis: Protonix 40 mg ACB 6) Hypokalemia - Initial Potassium of 3.3 - 40 mEq given PO, will continue to monitor with daily CMP
--- NOTE | 2016-10-12 21:11 | VASCULAR ---
PROCEDURE: 1. Follow-up right lower extremity arteriogram 2. Pharmacomechanical thrombolysis of the right anterior tibial artery, popliteal artery, and right femoral- popliteal bypass graft with Angiojet catheter 3. Right anterior tibial artery angioplasty and proximal stent placement 4. Proximal right femoral - popliteal bypass graft angioplasty HISTORY: Vasculopath. Smoker. Thrombosed right femoral- popliteal bypass graft with acute right foot ischemia. EKOS catheter - directed thrombolysis for 24 hours. PHYSICIAN(S): Jeremias Talbot M.D. TECHNIQUE: The relative risks and indications of the procedure were explained to the patient and consent obtained. The patient was hydrated prior to the procedure and the appropriate labs drawn. The patient was placed supine on the arteriogram table and the infusion system via the left groin prepped and draped in the usual sterile fashion. Conscious sedation and monitoring were provided throughout the procedure by a nurse. Contrast was injected through the infusion catheter. This revealed a patent trifurcation. The proximal right anterior tibial artery is patent. Thrombus was present in the mid to distal right anterior tibial artery. The right peroneal and posterior tibial arteries were occluded in the mid segments. Adherent thrombus was noted in the right popliteal artery and the proximal aspect of the right femoral- popliteal bypass graft. The infusion catheter was removed over wire. A 5 Greek trail laser catheter was placed in the mid to distal right anterior tibial artery. 1 milligram tPA was given by pulse-spray technique. 0.014 support wire was placed in the right dorsalis pedis artery. A 5 Greek Angiojet catheter was used to perform pharmacomechanical thrombolysis of the mid to distal right anterior tibial artery, the right popliteal artery, and the right femoral- popliteal bypass graft. Narrowing at the proximal anastomosis of the right femoral - popliteal bypass graft was dilated with 7 mm balloon. The right anterior tibial artery was dilated with a 3.0 by 200 mm angioplasty balloon. A focal resistant narrowing was seen in the proximal right anterior tibial artery. Subsequently a 3.0 by 38 mm drug-eluting stent was deployed in the proximal right anterior tibial artery. Completion angiograms were obtained. A Perclose device was deployed at the puncture site. The patient tolerated the procedure well. IV heparin was initiated. FINDINGS: The prostatic right femoral- popliteal graft is patent with antegrade flow. There is persistent narrowing at the proximal anastomosis. This was successfully dilated with 7 mm balloon. The distal anastomosis is patent. Some residual thrombus in the right popliteal artery was noted which responded well to Angiojet treatment. Lysis of the right trifurcation was achieved. There is 1 vessel runoff via the right anterior tibial artery with soft thrombus in the mid to distal artery. This was treated with pulse- spray thrombolysis, Angiojet thrombolysis, and low pressure balloon inflation. A drug-eluting stent was required in the proximal right anterior tibial artery at a refractory stenosis. IMPRESSION: 1.Successful thrombolysis of the patient's right femoral - popliteal prostatic bypass graft. 2. Angioplasty of the proximal anastomosis of the patient's right femoral - popliteal bypass graft. 3. Successful thrombolysis of the patient's right anterior tibial artery with Angiojet catheter, pulse spray technique, an low-pressure balloon inflation. 4. Angioplasty and drug eluting stent placement in the proximal right anterior tibial artery 5. IV heparin was continued. The patient should be placed on oral anticoagulation that is continued indefinitely
[2016-10-13] MEDS: Heparin 25,000units in D5W 25,000 UNITS/250 ML BAG IV PRN ×2 (00:11→12:17)
[2016-10-13 06:31] LABS: INR 1.16 (0.93-1.08); PARTIAL THROMBOPLASTIN TIME 59.9 Seconds (23.7-30.8)
[2016-10-13 06:42] LABS: ALKALINE PHOSPHATASE 91 U/L (38-133); ALT/SGPT 45 U/L (7-56); AST/SGOT 117 U/L (15-39); BILIRUBIN,TOTAL 0.7 mg/dL (0.2-1.3); BLOOD UREA NITROGEN 9 mg/dL (7-21); CALCIUM 8.2 mg/dL (8.4-10.5); CARBON DIOXIDE 28 mmol/L (21-33); CHLORIDE 102 mmol/L (98-107); GFR AFRICAN-AMERICAN > 60; GLUCOSE,RANDOM 109 mg/dL (70-110); MAGNESIUM 1.9 mg/dL (1.7-2.2); PHOSPHOROUS 1.6 mg/dL (2.5-4.5); POTASSIUM 3.5 mmol/L (3.6-5.0); SODIUM 136 mmol/L (132-148); TOTAL PROTEIN 5.9 g/dL (5.8-8.3)
[2016-10-13 06:45] LABS: BASO # 0.02 K/mm3 (0.0-2.0); BASO % 0.1 % (0.0-3.0); EOS # 0.1 (0.0-0.7); EOS % 0.5 % (1.5-5.0); GRAN # 11.67 (1.4-6.5); GRAN % 78.6 % (50.0-68.0); HEMATOCRIT 39.1 % (36.0-48.0); LYMPH # 2.1 (1.2-3.4); LYMPH % 13.9 % (22.0-35.0); MEAN CELL VOLUME 93.5 fl (80.0-105.0); MEAN CORPUSCULAR HEMOGLOBIN 31.6 pg (25.0-35.0); MEAN CORPUSCULAR HGB CONC 33.8 g/dl (31.0-37.0); MEAN PLATELET VOLUME 9.5 fl (7.0-11.0); MONO % 6.9 % (1.0-6.0); RED CELL DISTRIBUTION WIDTH 13.3 % (11.5-14.5); WHITE BLOOD COUNT 14.9 10^3/ul (4.5-11.0)
[2016-10-13] MEDS: Sodium Chloride 0.9% 1,000 ML IV SCH (06:52)
--- NOTE | 2016-10-13 07:24 | CP.PCM.PN ---
<Geovanny Landrum - Last Filed: 10/13/16 15:53> Subjective - Date & Time of Evaluation Date of Evaluation: 10/13/16 Time of Evaluation: 07:15 - Subjective Subjective: Patient seen and examined at bedside. No acute events overnight. Patient resting comfortably in bed. Patient is awake, alert, responds to verbal stimuli , and is answering questions appropriately. States she feels better overall. Denies fever, chills, chest pain, SOB. Objective - Vital Signs/Intake and Output Vital Signs (last 24 hours): Temp Pulse Resp BP Pulse Ox 98.4 F 83 26 H 122/55 L 93 L 10/13/16 04:00 10/13/16 06:00 10/13/16 06:00 10/13/16 06:00 10/13/16 06:00 Intake and Output: 10/13/16 10/13/16 06:59 18:59 Intake Total 1686 Output Total 900 Balance 786 - Medications Medications: Current Medications Acetaminophen (Tylenol 325mg Tab) 650 mg PO Q6H PRN PRN Reason: Pain, Mild (1-3) Acetaminophen (Tylenol 325mg Tab) 650 mg PO Q4H PRN PRN Reason: Pain, Mild (1-3) Atorvastatin Calcium (Lipitor) 20 mg PO DIN [facility] Last Admin: 10/12/16 18:15 Dose: Not Given Cilostazol (Pletal) 100 mg PO BID [facility] Last Admin: 10/12/16 19:27 Dose: 100 mg Clopidogrel Bisulfate (Plavix) 75 mg PO DAILY [facility] Last Admin: 10/12/16 09:34 Dose: Not Given Gabapentin (Neurontin) 600 mg PO BID [facility] PRN Reason: Protocol Last Admin: 10/12/16 18:15 Dose: Not Given Hydralazine HCl (Apresoline) 10 mg IVP Q6 PRN PRN Reason: HTN Last Admin: 10/12/16 02:28 Dose: 10 mg Hydromorphone HCl (Dilaudid) 2 mg IVP Q4H PRN PRN Reason: Pain, severe (8-10) Last Admin: 10/12/16 19:54 Dose: 2 mg Heparin Sodium/Dextrose (Heparin 25,000 Units/250ml In D5w) 25,000 units in 250 mls @ 16.329 mls/hr IV .[id number] PRN; Protocol; 18 UNITS/KG/HR PRN Reason: ADJUST RATE PER PROTOCOL Last Admin: 10/13/16 00:11 Dose: 15 units/kg/hr, 13.608 mls/hr Sodium Chloride (Sodium Chloride 0.9%) 1,000 mls @ 100 mls/hr IV .Q10H [facility] Last Admin: 10/13/16 06:52 Dose: 100 mls/hr Cefazolin Sodium (Ancef 1gm In Ns) 1 gm in 100 mls @ 100 mls/hr IVPB QAM FAWAD PRN Reason: Protocol Last Admin: 10/12/16 11:17 Dose: Not Given Levothyroxine Sodium (Synthroid) 100 mcg PO DAILY [facility] Last Admin: 10/12/16 09:41 Dose: 100 mcg Lorazepam (Ativan) 2 mg IVP Q6H PRN PRN Reason: Anxiety Last Admin: 10/11/16 21:00 Dose: 2 mg Losartan Potassium (Cozaar) 50 mg PO DAILY [facility] Last Admin: 10/12/16 09:33 Dose: Not Given Nicotine (Nicoderm Cq) 1 patch TD DAILY [facility] Last Admin: 10/12/16 18:16 Dose: 1 patch Ondansetron HCl (Zofran Inj) 4 mg IVP Q4H PRN PRN Reason: Nausea/Vomiting Last Admin: 10/11/16 20:09 Dose: 4 mg Oxycodone/Acetaminophen (Percocet 5/325 Mg Tab) 1 tab PO Q6H PRN PRN Reason: Pain, moderate (4-7) Stop: 10/14/16 18:56 Pantoprazole Sodium (Protonix Ec Tab) 40 mg PO 0600 [facility] - Labs Labs: 10/13/16 06:00 PT 12.5 Seconds (9.9-11.8) H 10/13/16 06:00 INR 1.16 (0.93-1.08) H 10/13/16 06:00 APTT 59.9 Seconds (23.7-30.8) H 10/13/16 06:00 - Additional Findings Additional findings: - Constitutional Appears: No Acute Distress - Head Exam Head Exam: ATRAUMATIC, NORMAL INSPECTION, NORMOCEPHALIC - Eye Exam Eye Exam: EOMI, PERRL - ENT Exam ENT Exam: Mucous Membranes Moist - Neck Exam Neck exam: Positive for: Normal Inspection - Respiratory Exam Respiratory Exam: Clear to Auscultation Bilateral, NORMAL BREATHING PATTERN - Cardiovascular Exam Cardiovascular Exam: REGULAR RHYTHM, +S1, +S2 - GI/Abdominal Exam GI & Abdominal Exam: Normal Bowel Sounds, Soft. absent: Tenderness - Extremities Exam Extremities exam: Negative for: calf tenderness Additional comments: bilateral femoral pulses palpable, Right DP found on doppler Left DP,PT not palpable but found with doppler, right lower extremity warm to touch, capillary refill less than 3 seconds, Left lower extremity 3 seconds, no calf tenderness to compression - Neurological Exam Neurological exam: Alert, CN II-XII Intact, Oriented x3 - Psychiatric Exam Psychiatric exam: Normal Affect, Normal Mood - Skin Skin Exam: Dry Additional comments: right lower extremity normal color when compared with left, left lower extremity with adequate warmth Assessment and Plan - Assessment and Plan (Free Text) Plan: 66 y/o female with severe PAD s/p bilateral fem-pop bypasses w/ chronic LE ischemia 2/2 bypass occlusion - ischemia is chronic in nature, no surgical intervention at this time - continue to follow Dr. Talbot recommendations - medical management as per primary will d/w with attending <Jayme Rutledge - Last Filed: 11/07/16 23:30> Objective - Vital Signs/Intake and Output Vital Signs (last 24 hours): Temp Pulse Resp BP Pulse Ox 98.7 F 74 21 118/84 99 10/17/16 12:00 10/17/16 16:00 10/17/16 16:00 10/17/16 14:28 10/17/16 00:01 - Labs Labs: 10/17/16 05:15 10/17/16 05:15 PT 12.5 Seconds (9.9-11.8) H 10/13/16 06:00 INR 1.16 (0.93-1.08) H 10/13/16 06:00 APTT 62.6 Seconds (23.7-30.8) H 10/17/16 05:15 Assessment and Plan - Assessment and Plan (Free Text) Plan: Patient was seen and examined by me. I agree with assessment and plan as per resident's note.She will continue on catheter directed thrombolysis as per IR.
[2016-10-13] MEDS: Pantoprazole 40 mg EC Tab PO SCH (07:38)
[2016-10-13] MEDS: ceFAZolin 1 gm in NS 1 GM/100 ML BAG IVPB SCH (09:17)
[2016-10-13] MEDS: Cilostazol 100 mg Tab UD PO SCH ×2 (09:26→17:28)
[2016-10-13] MEDS: Levothyroxine 100 MCG TAB PO SCH (09:26)
[2016-10-13] MEDS ORDERED: Potassium Chloride 40 mEq/30 ml LIQ UD PO ONE (10:46)
--- NOTE | 2016-10-13 11:09 | CP.PCM.PN ---
<Christel Valenzuela - Last Filed: 10/13/16 10:52> Subjective - Date & Time of Evaluation Date of Evaluation: 10/13/16 Time of Evaluation: 10:00 - Subjective Subjective: ICU Progress Note Pt seen and examined at bedside. No acute complaints at this time. Pt notes improvement sensation and pain in her lower extremities. No acute or adverse events overnight as per nursing staff. Pt denied fever, chills, sob, chest pains , abdominal pains, n/v/d/c or urinary symptoms. Objective - Vital Signs/Intake and Output Vital Signs (last 24 hours): Temp Pulse Resp BP Pulse Ox 98.4 F 82 23 86/32 L 92 L 10/13/16 04:00 10/13/16 08:00 10/13/16 08:00 10/13/16 09:25 10/13/16 08:00 Intake and Output: 10/13/16 10/13/16 06:59 18:59 Intake Total 1686 Output Total 900 Balance 786 - Medications Medications: Current Medications Acetaminophen (Tylenol 325mg Tab) 650 mg PO Q6H PRN PRN Reason: Pain, Mild (1-3) Acetaminophen (Tylenol 325mg Tab) 650 mg PO Q4H PRN PRN Reason: Pain, Mild (1-3) Atorvastatin Calcium (Lipitor) 20 mg PO DIN [facility] Last Admin: 10/12/16 18:15 Dose: Not Given Cilostazol (Pletal) 100 mg PO BID [facility] Last Admin: 10/13/16 09:26 Dose: 100 mg Clopidogrel Bisulfate (Plavix) 75 mg PO DAILY [facility] Last Admin: 10/13/16 09:25 Dose: 75 mg Gabapentin (Neurontin) 600 mg PO BID [facility] PRN Reason: Protocol Last Admin: 10/13/16 09:26 Dose: 600 mg Hydralazine HCl (Apresoline) 10 mg IVP Q6 PRN PRN Reason: HTN Last Admin: 10/12/16 02:28 Dose: 10 mg Hydromorphone HCl (Dilaudid) 2 mg IVP Q4H PRN PRN Reason: Pain, severe (8-10) Last Admin: 10/12/16 19:54 Dose: 2 mg Heparin Sodium/Dextrose (Heparin 25,000 Units/250ml In D5w) 25,000 units in 250 mls @ 16.329 mls/hr IV .[id number] PRN; Protocol; 18 UNITS/KG/HR PRN Reason: ADJUST RATE PER PROTOCOL Last Admin: 10/13/16 00:11 Dose: 15 units/kg/hr, 13.608 mls/hr Sodium Chloride (Sodium Chloride 0.9%) 1,000 mls @ 100 mls/hr IV .Q10H [facility] Last Admin: 10/13/16 06:52 Dose: 100 mls/hr Cefazolin Sodium (Ancef 1gm In Ns) 1 gm in 100 mls @ 100 mls/hr IVPB QAM FAWAD PRN Reason: Protocol Last Admin: 10/13/16 09:17 Dose: 100 mls/hr Levothyroxine Sodium (Synthroid) 100 mcg PO DAILY [facility] Last Admin: 10/13/16 09:26 Dose: 100 mcg Lorazepam (Ativan) 2 mg IVP Q6H PRN PRN Reason: Anxiety Last Admin: 10/11/16 21:00 Dose: 2 mg Losartan Potassium (Cozaar) 50 mg PO DAILY [facility] Last Admin: 10/13/16 09:25 Dose: Not Given Nicotine (Nicoderm Cq) 1 patch TD DAILY [facility] Last Admin: 10/13/16 09:26 Dose: 1 patch Ondansetron HCl (Zofran Inj) 4 mg IVP Q4H PRN PRN Reason: Nausea/Vomiting Last Admin: 10/11/16 20:09 Dose: 4 mg Oxycodone/Acetaminophen (Percocet 5/325 Mg Tab) 1 tab PO Q6H PRN PRN Reason: Pain, moderate (4-7) Stop: 10/14/16 18:56 Pantoprazole Sodium (Protonix Ec Tab) 40 mg PO 0600 [facility] Last Admin: 10/13/16 07:38 Dose: 40 mg - Labs Labs: 10/13/16 06:00 10/13/16 06:00 PT 12.5 Seconds (9.9-11.8) H 10/13/16 06:00 INR 1.16 (0.93-1.08) H 10/13/16 06:00 APTT 59.9 Seconds (23.7-30.8) H 10/13/16 06:00 - Constitutional Appears: No Acute Distress, Chronically Ill - Head Exam Head Exam: ATRAUMATIC, NORMAL INSPECTION, NORMOCEPHALIC - Eye Exam Eye Exam: EOMI, Normal appearance, PERRL Pupil Exam: NORMAL ACCOMODATION, PERRL - ENT Exam ENT Exam: Mucous Membranes Moist, Normal Exam - Neck Exam Neck Exam: Full ROM, Normal Inspection. absent: Lymphadenopathy - Respiratory Exam Respiratory Exam: Clear to Ausculation Bilateral, NORMAL BREATHING PATTERN - Cardiovascular Exam Cardiovascular Exam: REGULAR RHYTHM, +S1, +S2. absent: Murmur - GI/Abdominal Exam GI & Abdominal Exam: Soft, Normal Bowel Sounds. absent: Tenderness - Extremities Exam Extremities Exam: Normal Capillary Refill Additional comments: right lower extremity normal color when compared with left, left lower extremity with adequate warmth, no calf tenderness to compression. patient able to freely move LLE without pain - Neurological Exam Neurological Exam: Alert, Awake, CN II-XII Intact, Normal Gait, Oriented x3 - Psychiatric Exam Psychiatric exam: Normal Affect, Normal Mood - Skin Skin Exam: Dry, Intact, Normal Color, Warm Assessment and Plan - Assessment and Plan (Free Text) Assessment: 66 yo F admitted to ICU s/p intraarterial thrombolysis with EKOS catheter placement in right femoral-popliteal bypass graft, with PMH significant for PAD s/p b/l femoral bypass graft that has occluded, CAD, HTN, FL, HLD, and hypothyroidism. Neuro: - A&Ox3 - Stable, continue to monitor Pulm: -Stable - Hx of tobacco abuse and COPD - Start nicotine patch - Saturating well on O2 via NC 2L CV: - H/o PAD, HTN, CAD, Hx of FL - s/p intraarterial thrombolysis with EKOS catheter placement in right femoral- popliteal bypass graft and revision - improved perfusion to LE - Pain control with dilauded, percocent, neurontin, tylenol - Continue heparin gtt and switch to po AC as per IR - Continue Liptor, cilastazol - IVF NS @ 100mL/Hr - On Losartan, Hydralazine 10mg IV Q6prn >180 systolic BP - Hemodynamically stable - Maintain MAP>65 Renal: - Monitor and replete lytes as needed - Maintain euvolemia - Stricti I&Os GI: - HHD - Protonix Endo: - Hypothyroidism on levothyroxine - Maintain euglycemia 140-180 ID: - improved leukocytosis, afebrile - No apparent sources of infection, Cefazolin - Continue to monitor Hem/Onc: - H/H stable, no active bleed - Continue to monitor GI/DVT ppx: Protonix and Heparin gtt Case discussed and reviewed with attending <Stephen Ceaj MD - Last Filed: 10/13/16 13:45> Objective - Vital Signs/Intake and Output Vital Signs (last 24 hours): Temp Pulse Resp BP Pulse Ox 98.4 F 82 23 86/32 L 92 L 10/13/16 04:00 10/13/16 08:00 10/13/16 08:00 10/13/16 09:25 10/13/16 08:00 Intake and Output: 10/13/16 10/13/16 06:59 18:59 Intake Total 1686 250 Output Total 900 Balance 786 250 - Medications Medications: Current Medications Acetaminophen (Tylenol 325mg Tab) 650 mg PO Q6H PRN PRN Reason: Pain, Mild (1-3) Acetaminophen (Tylenol 325mg Tab) 650 mg PO Q4H PRN PRN Reason: Pain, Mild (1-3) Atorvastatin Calcium (Lipitor) 20 mg PO DIN [facility] Last Admin: 10/12/16 18:15 Dose: Not Given Cilostazol (Pletal) 100 mg PO BID [facility] Last Admin: 10/13/16 09:26 Dose: 100 mg Clopidogrel Bisulfate (Plavix) 75 mg PO DAILY [facility] Last Admin: 10/13/16 09:25 Dose: 75 mg Gabapentin (Neurontin) 600 mg PO BID [facility] PRN Reason: Protocol Last Admin: 10/13/16 09:26 Dose: 600 mg Hydralazine HCl (Apresoline) 10 mg IVP Q6 PRN PRN Reason: HTN Last Admin: 10/12/16 02:28 Dose: 10 mg Hydromorphone HCl (Dilaudid) 2 mg IVP Q4H PRN PRN Reason: Pain, severe (8-10) Last Admin: 10/12/16 19:54 Dose: 2 mg Heparin Sodium/Dextrose (Heparin 25,000 Units/250ml In D5w) 25,000 units in 250 mls @ 16.329 mls/hr IV .[id number] PRN; Protocol; 18 UNITS/KG/HR PRN Reason: ADJUST RATE PER PROTOCOL Last Admin: 10/13/16 12:17 Dose: 15 units/kg/hr, 13.608 mls/hr Sodium Chloride (Sodium Chloride 0.9%) 1,000 mls @ 100 mls/hr IV .Q10H [facility] Last Admin: 10/13/16 06:52 Dose: 100 mls/hr Cefazolin Sodium (Ancef 1gm In Ns) 1 gm in 100 mls @ 100 mls/hr IVPB QAM FAWAD PRN Reason: Protocol Last Admin: 10/13/16 09:17 Dose: 100 mls/hr Levothyroxine Sodium (Synthroid) 100 mcg PO DAILY [facility] Last Admin: 10/13/16 09:26 Dose: 100 mcg Lorazepam (Ativan) 2 mg IVP Q6H PRN PRN Reason: Anxiety Last Admin: 10/11/16 21:00 Dose: 2 mg Losartan Potassium (Cozaar) 50 mg PO DAILY [facility] Last Admin: 10/13/16 09:25 Dose: Not Given Nicotine (Nicoderm Cq) 1 patch TD DAILY [facility] Last Admin: 10/13/16 09:26 Dose: 1 patch Ondansetron HCl (Zofran Inj) 4 mg IVP Q4H PRN PRN Reason: Nausea/Vomiting Last Admin: 10/11/16 20:09 Dose: 4 mg Oxycodone/Acetaminophen (Percocet 5/325 Mg Tab) 1 tab PO Q6H PRN PRN Reason: Pain, moderate (4-7) Stop: 10/14/16 18:56 Pantoprazole Sodium (Protonix Ec Tab) 40 mg PO 0600 [facility] Last Admin: 10/13/16 07:38 Dose: 40 mg - Labs Labs: 10/13/16 06:00 10/13/16 06:00 PT 12.5 Seconds (9.9-11.8) H 10/13/16 06:00 INR 1.16 (0.93-1.08) H 10/13/16 06:00 APTT 59.9 Seconds (23.7-30.8) H 10/13/16 06:00 Attending/Attestation - Attestation I have personally seen and examined this patient.: Yes I have fully participated in the care of the patient.: Yes I have reviewed all pertinent clinical information, including history, physical exam and plan: Yes Notes (Text): 10/13/16 13:44 66 y/o F w/ R Ischemic Limb w/ PVD and revised FP Bypass. After TPA EKOS x 2 , now has restored pules via doppler. Although 1/3 veins patent . Likely will need mcc anticoagulation for best chance to avoid amputation. Smoking cessation needed. Out of bed to Chair , transfer to med/ surg floor after. cc time 45 min
--- NOTE | 2016-10-13 13:54 | PN ---
DATE: 10/13/2016 SUBJECTIVE: The patient is resting comfortably in bed. The pain in her right foot has resolved, but the foot remains "numb". She has not regained significant motor activity and there are some residual ischemic changes. The foot is warm and appears to be perfused. There is a strong DP Doppler signal. She has a palpable right popliteal pulse. The left groin puncture site is stable. Her labs are unremarkable. She is therapeutic on IV heparin. Her IV heparin should be continued for 24-48 more hours. She should be transitioned to oral coagulation, preferably a direct oral inhibitor or otherwise warfarin. Physical therapy can be initiated. The patient was strongly counseled about smoking, dietary habits, and exercise. Jeremias Talbot MD MTDD
--- NOTE | 2016-10-13 14:32 | CP.PCM.PN ---
<Diallo Reid - Last Filed: 10/13/16 14:23> Subjective - Date & Time of Evaluation Date of Evaluation: 10/13/16 Time of Evaluation: 14:23 - Subjective Subjective: 66 year old female patient s/p Angioplaty / thrombolysis of right lower extremity was seen at bedside ICU this afternoon with attending Dr. Beaulieu. Patient admits that the pain to right lower extremity has improved and is able to stand up with minimal pain. Patient states that the right lower extremity feels stiff and cannot exercise full range of motion at the ankle. Patient denies of any N/V/F/C or SOB today Objective - Vital Signs/Intake and Output Vital Signs (last 24 hours): Temp Pulse Resp BP Pulse Ox 98.4 F 109 H 23 129/57 L 96 10/13/16 04:00 10/13/16 14:00 10/13/16 14:00 10/13/16 13:00 10/13/16 10:00 Intake and Output: 10/13/16 10/13/16 06:59 18:59 Intake Total 1686 250 Output Total 900 Balance 786 250 - Medications Medications: Current Medications Acetaminophen (Tylenol 325mg Tab) 650 mg PO Q6H PRN PRN Reason: Pain, Mild (1-3) Acetaminophen (Tylenol 325mg Tab) 650 mg PO Q4H PRN PRN Reason: Pain, Mild (1-3) Atorvastatin Calcium (Lipitor) 20 mg PO DIN [facility] Last Admin: 10/12/16 18:15 Dose: Not Given Cilostazol (Pletal) 100 mg PO BID [facility] Last Admin: 10/13/16 09:26 Dose: 100 mg Clopidogrel Bisulfate (Plavix) 75 mg PO DAILY [facility] Last Admin: 10/13/16 09:25 Dose: 75 mg Gabapentin (Neurontin) 600 mg PO BID [facility] PRN Reason: Protocol Last Admin: 10/13/16 09:26 Dose: 600 mg Hydralazine HCl (Apresoline) 10 mg IVP Q6 PRN PRN Reason: HTN Last Admin: 10/12/16 02:28 Dose: 10 mg Hydromorphone HCl (Dilaudid) 2 mg IVP Q4H PRN PRN Reason: Pain, severe (8-10) Last Admin: 10/12/16 19:54 Dose: 2 mg Heparin Sodium/Dextrose (Heparin 25,000 Units/250ml In D5w) 25,000 units in 250 mls @ 16.329 mls/hr IV .[id number] PRN; Protocol; 18 UNITS/KG/HR PRN Reason: ADJUST RATE PER PROTOCOL Last Admin: 10/13/16 12:17 Dose: 15 units/kg/hr, 13.608 mls/hr Sodium Chloride (Sodium Chloride 0.9%) 1,000 mls @ 100 mls/hr IV .Q10H [facility] Last Admin: 10/13/16 06:52 Dose: 100 mls/hr Cefazolin Sodium (Ancef 1gm In Ns) 1 gm in 100 mls @ 100 mls/hr IVPB QAM FAWAD PRN Reason: Protocol Last Admin: 10/13/16 09:17 Dose: 100 mls/hr Levothyroxine Sodium (Synthroid) 100 mcg PO DAILY [facility] Last Admin: 10/13/16 09:26 Dose: 100 mcg Lorazepam (Ativan) 2 mg IVP Q6H PRN PRN Reason: Anxiety Last Admin: 10/11/16 21:00 Dose: 2 mg Losartan Potassium (Cozaar) 50 mg PO DAILY [facility] Last Admin: 10/13/16 09:25 Dose: Not Given Nicotine (Nicoderm Cq) 1 patch TD DAILY [facility] Last Admin: 10/13/16 09:26 Dose: 1 patch Ondansetron HCl (Zofran Inj) 4 mg IVP Q4H PRN PRN Reason: Nausea/Vomiting Last Admin: 10/11/16 20:09 Dose: 4 mg Oxycodone/Acetaminophen (Percocet 5/325 Mg Tab) 1 tab PO Q6H PRN PRN Reason: Pain, moderate (4-7) Stop: 10/14/16 18:56 Pantoprazole Sodium (Protonix Ec Tab) 40 mg PO 0600 [facility] Last Admin: 10/13/16 07:38 Dose: 40 mg - Labs Labs: 10/13/16 06:00 10/13/16 06:00 PT 12.5 Seconds (9.9-11.8) H 10/13/16 06:00 INR 1.16 (0.93-1.08) H 10/13/16 06:00 APTT 59.9 Seconds (23.7-30.8) H 10/13/16 06:00 - Constitutional Appears: Well, Non-toxic, No Acute Distress - Extremities Exam Additional comments: Bilateral lower extremities exam DERM Right: No open wound is noted. Dusky discoloration to right lower extremity has improved to normal skin color. No erythema is noted. No drainage is noted. No sign of acute infection is noted. Left: No open wound is noted. No erythema is noted. No drainage is noted. No sign of acute infection is noted. VASC: Right: Capillary refill time is normal less than 3 seconds to all digits. 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 Skin warm to touch ORTHO: Slight atrophy noted to the musculature of the right lower extremity as compared to that of the Left. Pain on palpation to joints distal to right ankle. No pain is induced for left lower extremity. Drop foot is noted to right lower extremity with plantarflexed foot at the ankle. Decreased Passive and active dorsiflexion is noted at the Right ankle secondary to guarding. - Neurological Exam Neurological Exam: Alert, Awake, Oriented x3 - Psychiatric Exam Psychiatric exam: Normal Affect, Normal Mood - Skin Skin Exam: Normal Color, Warm Assessment and Plan - Assessment and Plan (Free Text) Assessment: 66 yo female patient with PAD: right lower extremity ischemia, s/p angioplasty and thrombolysis of Right Anterior Tibial artery and femoral-popliteal bypass graft Plan: Patient was seen, evaluated at the bedside CCU this afternoon with attending Dr. Beaulieu Labs and vitals reviewed Continue Anti-coagulation as per Vascular Physical therapy consulted; Right drop foot Smoking cessation advised again Podiatry will continue to follow in-house <Renuka Beaulieu - Last Filed: 10/24/16 19:33> Objective - Vital Signs/Intake and Output Vital Signs (last 24 hours): Temp Pulse Resp BP Pulse Ox 98.7 F 74 21 118/84 99 10/17/16 12:00 10/17/16 16:00 10/17/16 16:00 10/17/16 14:28 10/17/16 00:01 - Labs Labs: 10/17/16 05:15 10/17/16 05:15 PT 12.5 Seconds (9.9-11.8) H 10/13/16 06:00 INR 1.16 (0.93-1.08) H 10/13/16 06:00 APTT 62.6 Seconds (23.7-30.8) H 10/17/16 05:15 Attending/Attestation - Attestation I have personally seen and examined this patient.: Yes I have fully participated in the care of the patient.: Yes I have reviewed all pertinent clinical information, including history, physical exam and plan: Yes
--- NOTE | 2016-10-13 15:01 | CP.PCM.PN ---
Subjective - Date & Time of Evaluation Date of Evaluation: 10/13/16 Time of Evaluation: 09:45 - Subjective Subjective: Pt s/e bedside. Her RLE is looking much better - faint pulse, warmer to touch, no more discoloration. Pt advised on smoking cessation. Denies F/ch/sob/cp/n/v /d. Still has some RLE pain. Clinically improved. No further complaints Objective - Vital Signs/Intake and Output Vital Signs (last 24 hours): Temp Pulse Resp BP Pulse Ox 98.4 F 109 H 23 129/57 L 96 10/13/16 04:00 10/13/16 14:00 10/13/16 14:00 10/13/16 13:00 10/13/16 10:00 Intake and Output: 10/13/16 10/13/16 06:59 18:59 Intake Total 1686 250 Output Total 900 Balance 786 250 - Medications Medications: Current Medications Acetaminophen (Tylenol 325mg Tab) 650 mg PO Q6H PRN PRN Reason: Pain, Mild (1-3) Acetaminophen (Tylenol 325mg Tab) 650 mg PO Q4H PRN PRN Reason: Pain, Mild (1-3) Atorvastatin Calcium (Lipitor) 20 mg PO DIN [facility] Last Admin: 10/12/16 18:15 Dose: Not Given Cilostazol (Pletal) 100 mg PO BID [facility] Last Admin: 10/13/16 09:26 Dose: 100 mg Clopidogrel Bisulfate (Plavix) 75 mg PO DAILY [facility] Last Admin: 10/13/16 09:25 Dose: 75 mg Gabapentin (Neurontin) 600 mg PO BID [facility] PRN Reason: Protocol Last Admin: 10/13/16 09:26 Dose: 600 mg Hydralazine HCl (Apresoline) 10 mg IVP Q6 PRN PRN Reason: HTN Last Admin: 10/12/16 02:28 Dose: 10 mg Hydromorphone HCl (Dilaudid) 2 mg IVP Q4H PRN PRN Reason: Pain, severe (8-10) Last Admin: 10/12/16 19:54 Dose: 2 mg Heparin Sodium/Dextrose (Heparin 25,000 Units/250ml In D5w) 25,000 units in 250 mls @ 16.329 mls/hr IV .[id number] PRN; Protocol; 18 UNITS/KG/HR PRN Reason: ADJUST RATE PER PROTOCOL Last Admin: 10/13/16 12:17 Dose: 15 units/kg/hr, 13.608 mls/hr Sodium Chloride (Sodium Chloride 0.9%) 1,000 mls @ 100 mls/hr IV .Q10H [facility] Last Admin: 10/13/16 06:52 Dose: 100 mls/hr Cefazolin Sodium (Ancef 1gm In Ns) 1 gm in 100 mls @ 100 mls/hr IVPB QAM FAWAD PRN Reason: Protocol Last Admin: 10/13/16 09:17 Dose: 100 mls/hr Levothyroxine Sodium (Synthroid) 100 mcg PO DAILY [facility] Last Admin: 10/13/16 09:26 Dose: 100 mcg Lorazepam (Ativan) 2 mg IVP Q6H PRN PRN Reason: Anxiety Last Admin: 10/11/16 21:00 Dose: 2 mg Losartan Potassium (Cozaar) 50 mg PO DAILY [facility] Last Admin: 10/13/16 09:25 Dose: Not Given Nicotine (Nicoderm Cq) 1 patch TD DAILY [facility] Last Admin: 10/13/16 09:26 Dose: 1 patch Ondansetron HCl (Zofran Inj) 4 mg IVP Q4H PRN PRN Reason: Nausea/Vomiting Last Admin: 10/11/16 20:09 Dose: 4 mg Oxycodone/Acetaminophen (Percocet 5/325 Mg Tab) 1 tab PO Q6H PRN PRN Reason: Pain, moderate (4-7) Stop: 10/14/16 18:56 Pantoprazole Sodium (Protonix Ec Tab) 40 mg PO 0600 [facility] Last Admin: 10/13/16 07:38 Dose: 40 mg - Labs Labs: 10/13/16 06:00 10/13/16 06:00 PT 12.5 Seconds (9.9-11.8) H 10/13/16 06:00 INR 1.16 (0.93-1.08) H 10/13/16 06:00 APTT 59.9 Seconds (23.7-30.8) H 10/13/16 06:00 - Additional Findings Additional findings: Phys Exam: VS as below Constitutional: a&o x 4, nad Head and Neck: neck supple, no jvd, trachea midline, carotid midline, no cervical/head mass Eyes: jon, nonicteric sclera, eom intact ENT: auditory acuity grossly intact, throat not congested, no nasal deformity Cardio: rrr, no m/r/g, no carotid bruit, nml s1, s2 Pulm: no accessory muscle use, equal nml breath sounds bilaterally, ctab Abd: s/nt/nd, nbs x 4 q, no palpable masses Derm: no rashes, no ulcers, no lesions Extr: bilateral femoral pulses palpable, distal pulses not palpable on right. bilateral LEs cool but right is cold. capillary refill time 3 secs on left, severely delayed on right. no calf tenderness to compression. patient able to freely move LLE without pain; Not able to wiggle right toes. Right foot discolored. Neuro: cn II-XII grossly intact, ue and le 5/5 muscle strength bilaterally, no los ue, le bilaterally and core Assessment and Plan - Assessment and Plan (Free Text) Assessment: 66 yo F with vasculopathy with bilateral femoral popliteal grafts, 78 pack year history of smoking, CAD with history of SC in 1999, who presents with RLE pain. Patient was scheduled to see Dr. Jeremias Talbot tomorrow, but due to the severity of symptoms, color changes, numbness, and pallor in the RLE, she came to ED. Patient started on heparin drip, vascular surgery and interventional radiology consulted. Plan: 1) Right LE pain secondary to PVD - See details of CT above - Vascular surgery: Dr. Jeremias Talbot - Interventional Radiology consulted: Dr. Jeremias Talbot. Took pt for [facility] - revascularized yesterday, 10/13. Started on Heparin drip, will decide anticoagulation tomorrow. - General Surg consulted: Dr. Parkinson -Ischemia appears to be chronic in nature, not acute -LE fed by collaterals -Will f/u IR, Dr. Talbot recommendations -If unable to revascularize may need further surgical intervention -Cont anticoagulation -No acute surgical intervention at this time -Second angiogram today, 10/12: report pending - Patient is NPO, except for medications - Monitor distal pulses q4h - Vitals q8h - Heparin drip - PT/PTT per protocol - Analgesia with Morphine 2 mg IVP q4h PRN, Percocet PRN, Tylenol PRN - Atorvastatin 20 mg PO DIN - C/W home Cilostazol 100 mg PO BID - Holding/stopped home NSAIDs 2) CAD - C/W Plavix 75 mg PO daily - C/W Atorvastatin as detailed above, dual benefit in this patient - C/W Losartan 50 mg PO daily 3) Peripheral neuropathy, most likely secondary to Peripheral Vascular Disease - C/W Neurontin 600 mg BID 4) Hypothyroidism C/W Levothyroxine 100 mcg PO daily 5) GI prophylaxis: Protonix 40 mg ACB 6) Hypokalemia - Initial Potassium of 3.3 - 40 mEq given PO, will continue to monitor with daily CMP
[2016-10-13] MEDS: HYDROmorphone 2 mg/ml ISec IVP PRN (21:31)
[2016-10-14] MEDS: Heparin 25,000units in D5W 25,000 UNITS/250 ML BAG IV PRN (05:29)
[2016-10-14] MEDS: Pantoprazole 40 mg EC Tab PO SCH (05:31)
[2016-10-14 06:26] LABS: BASO # 0.03 K/mm3 (0.0-2.0); BASO % 0.2 % (0.0-3.0); EOS # 0.3 (0.0-0.7); EOS % 1.9 % (1.5-5.0); GRAN # 10.84 (1.4-6.5); GRAN % 74.9 % (50.0-68.0); HEMATOCRIT 35.4 % (36.0-48.0); LYMPH # 2.2 (1.2-3.4); LYMPH % 15.1 % (22.0-35.0); MEAN CELL VOLUME 92.7 fl (80.0-105.0); MEAN CORPUSCULAR HEMOGLOBIN 31.7 pg (25.0-35.0); MEAN CORPUSCULAR HGB CONC 34.2 g/dl (31.0-37.0); MEAN PLATELET VOLUME 9.6 fl (7.0-11.0); MONO # 1.1 (0.1-0.6); MONO % 7.9 % (1.0-6.0); RED CELL DISTRIBUTION WIDTH 13.3 % (11.5-14.5); WHITE BLOOD COUNT 14.5 10^3/ul (4.5-11.0)
[2016-10-14 06:38] LABS: ALKALINE PHOSPHATASE 80 U/L (38-133); ALT/SGPT 57 U/L (7-56); AST/SGOT 151 U/L (15-39); BILIRUBIN,TOTAL 0.5 mg/dL (0.2-1.3); BLOOD UREA NITROGEN 9 mg/dL (7-21); CALCIUM 8.5 mg/dL (8.4-10.5); CARBON DIOXIDE 31 mmol/L (21-33); CHLORIDE 102 mmol/L (98-107); GFR AFRICAN-AMERICAN > 60; GLUCOSE,RANDOM 115 mg/dL (70-110); PHOSPHOROUS 1.7 mg/dL (2.5-4.5); SODIUM 137 mmol/L (132-148); TOTAL PROTEIN 6.1 g/dL (5.8-8.3)
--- NOTE | 2016-10-14 10:17 | CP.PCM.PN ---
<Landrum,Geovanny - Last Filed: 10/14/16 10:08> Subjective - Date & Time of Evaluation Date of Evaluation: 10/14/16 Time of Evaluation: 08:15 - Subjective Subjective: Patient seen and examined at bedside. No acute events overnight. Patient resting comfortably in bed. Offers no new complaints at this time. Denies fever , chills, chest pain, SOB, abdominal pain. Objective - Vital Signs/Intake and Output Vital Signs (last 24 hours): Temp Pulse Resp BP Pulse Ox 98.4 F 73 20 119/58 L 96 10/13/16 16:00 10/14/16 08:00 10/14/16 08:00 10/13/16 17:27 10/13/16 10:00 Intake and Output: 10/14/16 10/14/16 06:59 18:59 Intake Total 250 500 Output Total 600 Balance 250 -100 - Medications Medications: Current Medications Acetaminophen (Tylenol 325mg Tab) 650 mg PO Q6H PRN PRN Reason: Pain, Mild (1-3) Acetaminophen (Tylenol 325mg Tab) 650 mg PO Q4H PRN PRN Reason: Pain, Mild (1-3) Atorvastatin Calcium (Lipitor) 20 mg PO DIN [facility] Last Admin: 10/13/16 17:28 Dose: 20 mg Cilostazol (Pletal) 100 mg PO BID [facility] Last Admin: 10/13/16 17:28 Dose: 100 mg Clopidogrel Bisulfate (Plavix) 75 mg PO DAILY [facility] Last Admin: 10/13/16 09:25 Dose: 75 mg Gabapentin (Neurontin) 600 mg PO BID [facility] PRN Reason: Protocol Last Admin: 10/13/16 17:27 Dose: 600 mg Hydralazine HCl (Apresoline) 10 mg IVP Q6 PRN PRN Reason: HTN Last Admin: 10/12/16 02:28 Dose: 10 mg Hydromorphone HCl (Dilaudid) 2 mg IVP Q4H PRN PRN Reason: Pain, severe (8-10) Last Admin: 10/13/16 21:31 Dose: 2 mg Heparin Sodium/Dextrose (Heparin 25,000 Units/250ml In D5w) 25,000 units in 250 mls @ 16.329 mls/hr IV .[id number] PRN; Protocol; 18 UNITS/KG/HR PRN Reason: ADJUST RATE PER PROTOCOL Last Admin: 10/14/16 05:29 Dose: 15 units/kg/hr, 13.608 mls/hr Cefazolin Sodium (Ancef 1gm In Ns) 1 gm in 100 mls @ 100 mls/hr IVPB QAM FAWAD PRN Reason: Protocol Last Admin: 10/13/16 09:17 Dose: 100 mls/hr Levothyroxine Sodium (Synthroid) 100 mcg PO DAILY [facility] Last Admin: 10/13/16 09:26 Dose: 100 mcg Lorazepam (Ativan) 2 mg IVP Q6H PRN PRN Reason: Anxiety Last Admin: 10/11/16 21:00 Dose: 2 mg Losartan Potassium (Cozaar) 50 mg PO DAILY [facility] Last Admin: 10/13/16 09:25 Dose: Not Given Nicotine (Nicoderm Cq) 1 patch TD DAILY [facility] Last Admin: 10/13/16 09:26 Dose: 1 patch Ondansetron HCl (Zofran Inj) 4 mg IVP Q4H PRN PRN Reason: Nausea/Vomiting Last Admin: 10/11/16 20:09 Dose: 4 mg Oxycodone/Acetaminophen (Percocet 5/325 Mg Tab) 1 tab PO Q6H PRN PRN Reason: Pain, moderate (4-7) Stop: 10/14/16 18:56 Pantoprazole Sodium (Protonix Ec Tab) 40 mg PO 0600 [facility] Last Admin: 10/14/16 05:31 Dose: 40 mg - Labs Labs: 10/14/16 06:05 10/14/16 06:05 PT 12.5 Seconds (9.9-11.8) H 10/13/16 06:00 INR 1.16 (0.93-1.08) H 10/13/16 06:00 APTT 50.7 Seconds (23.7-30.8) H 10/14/16 07:41 - Additional Findings Additional findings: - Constitutional Appears: No Acute Distress - Head Exam Head Exam: ATRAUMATIC, NORMAL INSPECTION, NORMOCEPHALIC - Eye Exam Eye Exam: EOMI, PERRL - ENT Exam ENT Exam: Mucous Membranes Moist - Neck Exam Neck exam: Positive for: Normal Inspection - Respiratory Exam Respiratory Exam: Clear to Auscultation Bilateral, NORMAL BREATHING PATTERN - Cardiovascular Exam Cardiovascular Exam: REGULAR RHYTHM, +S1, +S2 - GI/Abdominal Exam GI & Abdominal Exam: Normal Bowel Sounds, Soft. absent: Tenderness - Extremities Exam Extremities exam: Negative for: calf tenderness Additional comments: bilateral femoral pulses palpable, Right DP found on doppler Left DP, PT found with doppler, right lower extremity warm to touch, capillary refill less than 3 seconds, Left lower extremity 3 seconds, no calf tenderness to compression - Neurological Exam Neurological exam: Alert, CN II-XII Intact, Oriented x3 - Psychiatric Exam Psychiatric exam: Normal Affect, Normal Mood - Skin Skin Exam: Dry Additional comments: right lower extremity normal color when compared with left, left lower extremity with adequate warmth Assessment and Plan - Assessment and Plan (Free Text) Assessment: 66 y/o female with severe PAD s/p bilateral fem-pop bypasses w/ chronic LE ischemia 2/2 bypass occlusion - ischemia is chronic in nature, no surgical intervention intended - will follow peripherally - medical management as per primary will d/w with attending <Jayme Rutledge - Last Filed: 11/07/16 23:33> Objective - Vital Signs/Intake and Output Vital Signs (last 24 hours): Temp Pulse Resp BP Pulse Ox 98.7 F 74 21 118/84 99 10/17/16 12:00 10/17/16 16:00 10/17/16 16:00 10/17/16 14:28 10/17/16 00:01 - Labs Labs: 10/17/16 05:15 10/17/16 05:15 PT 12.5 Seconds (9.9-11.8) H 10/13/16 06:00 INR 1.16 (0.93-1.08) H 10/13/16 06:00 APTT 62.6 Seconds (23.7-30.8) H 10/17/16 05:15 Assessment and Plan - Assessment and Plan (Free Text) Plan: Patient was seen and examined by me. I agree with assessment and plan as per resident's note. Ischemia of the lower extremity almost completely resolved.
--- NOTE | 2016-10-14 10:21 | CP.PCM.PN ---
<Diallo Reid - Last Filed: 10/14/16 10:17> Subjective - Date & Time of Evaluation Date of Evaluation: 10/14/16 Time of Evaluation: 10:17 - Subjective Subjective: 66 year old female patient 1day s/p Angioplaty / thrombolysis of right lower extremity was seen at bedside ICU this AM with attending Dr. Beaulieu. Patient resting comfortably in bed with no acute distress. Patient was informed that she will be trained of ambulation with physical therapy today and she agrees with podiaty plan. Patient denies of any N/V/F/C or SOB today Objective - Vital Signs/Intake and Output Vital Signs (last 24 hours): Temp Pulse Resp BP Pulse Ox 98.4 F 73 20 119/58 L 96 10/13/16 16:00 10/14/16 08:00 10/14/16 08:00 10/13/16 17:27 10/13/16 10:00 Intake and Output: 10/14/16 10/14/16 06:59 18:59 Intake Total 250 500 Output Total 600 Balance 250 -100 - Medications Medications: Current Medications Acetaminophen (Tylenol 325mg Tab) 650 mg PO Q6H PRN PRN Reason: Pain, Mild (1-3) Acetaminophen (Tylenol 325mg Tab) 650 mg PO Q4H PRN PRN Reason: Pain, Mild (1-3) Atorvastatin Calcium (Lipitor) 20 mg PO DIN [facility] Last Admin: 10/13/16 17:28 Dose: 20 mg Cilostazol (Pletal) 100 mg PO BID [facility] Last Admin: 10/13/16 17:28 Dose: 100 mg Clopidogrel Bisulfate (Plavix) 75 mg PO DAILY [facility] Last Admin: 10/13/16 09:25 Dose: 75 mg Gabapentin (Neurontin) 600 mg PO BID [facility] PRN Reason: Protocol Last Admin: 10/13/16 17:27 Dose: 600 mg Hydralazine HCl (Apresoline) 10 mg IVP Q6 PRN PRN Reason: HTN Last Admin: 10/12/16 02:28 Dose: 10 mg Hydromorphone HCl (Dilaudid) 2 mg IVP Q4H PRN PRN Reason: Pain, severe (8-10) Last Admin: 10/13/16 21:31 Dose: 2 mg Heparin Sodium/Dextrose (Heparin 25,000 Units/250ml In D5w) 25,000 units in 250 mls @ 16.329 mls/hr IV .[id number] PRN; Protocol; 18 UNITS/KG/HR PRN Reason: ADJUST RATE PER PROTOCOL Last Admin: 10/14/16 05:29 Dose: 15 units/kg/hr, 13.608 mls/hr Cefazolin Sodium (Ancef 1gm In Ns) 1 gm in 100 mls @ 100 mls/hr IVPB QAM FAWAD PRN Reason: Protocol Last Admin: 10/13/16 09:17 Dose: 100 mls/hr Levothyroxine Sodium (Synthroid) 100 mcg PO DAILY [facility] Last Admin: 10/13/16 09:26 Dose: 100 mcg Lorazepam (Ativan) 2 mg IVP Q6H PRN PRN Reason: Anxiety Last Admin: 10/11/16 21:00 Dose: 2 mg Losartan Potassium (Cozaar) 50 mg PO DAILY [facility] Last Admin: 10/13/16 09:25 Dose: Not Given Nicotine (Nicoderm Cq) 1 patch TD DAILY [facility] Last Admin: 10/13/16 09:26 Dose: 1 patch Ondansetron HCl (Zofran Inj) 4 mg IVP Q4H PRN PRN Reason: Nausea/Vomiting Last Admin: 10/11/16 20:09 Dose: 4 mg Oxycodone/Acetaminophen (Percocet 5/325 Mg Tab) 1 tab PO Q6H PRN PRN Reason: Pain, moderate (4-7) Stop: 10/14/16 18:56 Pantoprazole Sodium (Protonix Ec Tab) 40 mg PO 0600 [facility] Last Admin: 10/14/16 05:31 Dose: 40 mg - Labs Labs: 10/14/16 06:05 10/14/16 06:05 PT 12.5 Seconds (9.9-11.8) H 10/13/16 06:00 INR 1.16 (0.93-1.08) H 10/13/16 06:00 APTT 50.7 Seconds (23.7-30.8) H 10/14/16 07:41 - Constitutional Appears: Well, Non-toxic, No Acute Distress - Extremities Exam Additional comments: Bilateral lower extremities exam DERM Right: No open wound is noted. Dusky discoloration to right lower extremity has improved to normal skin color. No erythema is noted. No drainage is noted. No sign of acute infection is noted. Left: No open wound is noted. No erythema is noted. No drainage is noted. No sign of acute infection is noted. VASC: Right: Capillary refill time is normal less than 3 seconds to all digits. 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 Skin warm to touch ORTHO: Slight atrophy noted to the musculature of the right lower extremity as compared to that of the Left. Pain on palpation to joints distal to right ankle. No pain is induced for left lower extremity. Drop foot is noted to right lower extremity with plantarflexed foot at the ankle. Decreased Passive and active dorsiflexion is noted at the Right ankle secondary to guarding. - Neurological Exam Neurological Exam: Alert, Awake, Oriented x3 - Psychiatric Exam Psychiatric exam: Normal Affect, Normal Mood - Skin Skin Exam: Normal Color, Warm Assessment and Plan - Assessment and Plan (Free Text) Assessment: 66 yo female patient with PAD: right lower extremity ischemia, s/p angioplasty and thrombolysis of Right Anterior Tibial artery and femoral-popliteal bypass graft Plan: Patient was seen, evaluated at the bedside CCU this AM with attending Dr. Beaulieu Labs and vitals reviewed Continue Anti-coagulation as per Vascular Physical therapy consulted; Right drop foot Podiatry will continue to follow in-hous <Renuka Beaulieu - Last Filed: 10/24/16 19:36> Objective - Vital Signs/Intake and Output Vital Signs (last 24 hours): Temp Pulse Resp BP Pulse Ox 98.7 F 74 21 118/84 99 10/17/16 12:00 10/17/16 16:00 10/17/16 16:00 10/17/16 14:28 10/17/16 00:01 - Labs Labs: 10/17/16 05:15 10/17/16 05:15 PT 12.5 Seconds (9.9-11.8) H 10/13/16 06:00 INR 1.16 (0.93-1.08) H 10/13/16 06:00 APTT 62.6 Seconds (23.7-30.8) H 10/17/16 05:15 Attending/Attestation - Attestation I have personally seen and examined this patient.: Yes I have fully participated in the care of the patient.: Yes I have reviewed all pertinent clinical information, including history, physical exam and plan: Yes
[2016-10-14] MEDS: Levothyroxine 100 MCG TAB PO SCH (10:52)
[2016-10-14] MEDS: Cilostazol 100 mg Tab UD PO SCH ×2 (10:52→17:34)
[2016-10-14] MEDS: ceFAZolin 1 gm in NS 1 GM/100 ML BAG IVPB SCH (11:14)
--- NOTE | 2016-10-14 22:27 | CP.PCM.PN ---
Subjective - Date & Time of Evaluation Date of Evaluation: 10/14/16 Time of Evaluation: 09:30 - Subjective Subjective: Pt s/e bedside. Pt's RLE feels much better, still has some pain, states that she still does not have motor control of her feet back. Discussed the use of ' vape pens' in lieu of smoking, but advised that they still have nicotine and would not be appropriate for her current condition. IR, Podiatry, Surgery following. Pt denies f/ch/n/v/d/cp/sob. No further complaints at this time. Objective - Vital Signs/Intake and Output Vital Signs (last 24 hours): Temp Pulse Resp BP Pulse Ox 99.5 F 89 25 H 111/48 L 96 10/14/16 16:00 10/14/16 21:16 10/14/16 20:14 10/14/16 20:14 10/13/16 10:00 Intake and Output: 10/14/16 10/15/16 18:59 06:59 Intake Total 1650 Output Total 1350 Balance 300 - Medications Medications: Current Medications Acetaminophen (Tylenol 325mg Tab) 650 mg PO Q6H PRN PRN Reason: Pain, Mild (1-3) Acetaminophen (Tylenol 325mg Tab) 650 mg PO Q4H PRN PRN Reason: Pain, Mild (1-3) Atorvastatin Calcium (Lipitor) 20 mg PO DIN [facility] Last Admin: 10/14/16 17:34 Dose: 20 mg Cilostazol (Pletal) 100 mg PO BID [facility] Last Admin: 10/14/16 17:34 Dose: 100 mg Clopidogrel Bisulfate (Plavix) 75 mg PO DAILY [facility] Last Admin: 10/14/16 11:12 Dose: 75 mg Gabapentin (Neurontin) 600 mg PO BID [facility] PRN Reason: Protocol Last Admin: 10/14/16 17:34 Dose: 600 mg Hydralazine HCl (Apresoline) 10 mg IVP Q6 PRN PRN Reason: HTN Last Admin: 10/12/16 02:28 Dose: 10 mg Hydromorphone HCl (Dilaudid) 2 mg IVP Q4H PRN PRN Reason: Pain, severe (8-10) Last Admin: 10/13/16 21:31 Dose: 2 mg Heparin Sodium/Dextrose (Heparin 25,000 Units/250ml In D5w) 25,000 units in 250 mls @ 16.329 mls/hr IV .[id number] PRN; Protocol; 18 UNITS/KG/HR PRN Reason: ADJUST RATE PER PROTOCOL Last Admin: 10/14/16 05:29 Dose: 15 units/kg/hr, 13.608 mls/hr Cefazolin Sodium (Ancef 1gm In Ns) 1 gm in 100 mls @ 100 mls/hr IVPB QAM [facility] PRN Reason: Protocol Last Admin: 10/14/16 11:14 Dose: 100 mls/hr Levothyroxine Sodium (Synthroid) 100 mcg PO DAILY [facility] Last Admin: 10/14/16 10:52 Dose: 100 mcg Lorazepam (Ativan) 2 mg IVP Q6H PRN PRN Reason: Anxiety Last Admin: 10/11/16 21:00 Dose: 2 mg Losartan Potassium (Cozaar) 50 mg PO DAILY [facility] Last Admin: 10/14/16 11:14 Dose: Not Given Nicotine (Nicoderm Cq) 1 patch TD DAILY [facility] Last Admin: 10/14/16 10:52 Dose: 1 patch Ondansetron HCl (Zofran Inj) 4 mg IVP Q4H PRN PRN Reason: Nausea/Vomiting Last Admin: 10/11/16 20:09 Dose: 4 mg Pantoprazole Sodium (Protonix Ec Tab) 40 mg PO 0600 [facility] Last Admin: 10/14/16 05:31 Dose: 40 mg - Labs Labs: 10/14/16 06:05 10/14/16 06:05 PT 12.5 Seconds (9.9-11.8) H 10/13/16 06:00 INR 1.16 (0.93-1.08) H 10/13/16 06:00 APTT 50.7 Seconds (23.7-30.8) H 10/14/16 07:41 - Additional Findings Additional findings: Phys Exam: VS as below Constitutional: a&o x 4, nad Head and Neck: neck supple, no jvd, trachea midline, carotid midline, no cervical/head mass Eyes: jon, nonicteric sclera, eom intact ENT: auditory acuity grossly intact, throat not congested, no nasal deformity Cardio: rrr, no m/r/g, no carotid bruit, nml s1, s2 Pulm: no accessory muscle use, equal nml breath sounds bilaterally, ctab Abd: s/nt/nd, nbs x 4 q, no palpable masses Derm: no rashes, no ulcers, no lesions Extr: bilateral femoral pulses palpable, distal pulses now palpable b/l. Bilateral LEs cool but right is no longer cold. capillary refill time 3 secs on left, no longer severely delayed on right. no calf tenderness to compression. patient able to freely move LLE without pain; Not able to wiggle right toes yet. Right foot no longer discolored. Neuro: cn II-XII grossly intact, ue and le 5/5 muscle strength bilaterally, no los ue, le bilaterally and core Assessment and Plan - Assessment and Plan (Free Text) Assessment: 66 yo F with vasculopathy with bilateral femoral popliteal grafts, 78 pack year history of smoking, CAD with history of [place] in 1999, who presents with RLE pain. Patient was scheduled to see Dr. Jeremias Talbot tomorrow, but due to the severity of symptoms, color changes, numbness, and pallor in the RLE, she came to ED. Patient started on heparin drip, vascular surgery and interventional radiology consulted. Plan: 1) Right LE pain secondary to PVD - See details of CT above - Vascular surgery: Dr. Jeremias Talbot - Interventional Radiology consulted: Dr. Jeremias Talbot. Took pt for [facility] - revascularized yesterday, 10/13. Started on Heparin drip Will decide anticoagulation ?? - Patient is on Plavix - General Surg consulted: Dr. Parkinson Ischemia appears to be chronic in nature, not acute LE fed by collaterals No acute surgical intervention at this time - Patient is NPO, except for medications - Monitor distal pulses q4h - Vitals q8h - Heparin drip - PT/PTT per protocol - Analgesia with Morphine 2 mg IVP q4h PRN, Percocet PRN, Tylenol PRN - Atorvastatin 20 mg PO DIN - C/W home Cilostazol 100 mg PO BID - Holding/stopped home NSAIDs - Podiatry c/s: Continue Anti-coagulation as per Vascular Physical therapy consulted; Right drop foot 2) CAD - C/W Plavix 75 mg PO daily - C/W Atorvastatin as detailed above, dual benefit in this patient - C/W Losartan 50 mg PO daily 3) Peripheral neuropathy, most likely secondary to Peripheral Vascular Disease - C/W Neurontin 600 mg BID 4) Hypothyroidism C/W Levothyroxine 100 mcg PO daily 5) GI prophylaxis: Protonix 40 mg ACB 6) Hypokalemia - Initial Potassium of 3.3 - 40 mEq given PO, will continue to monitor with daily CMP
[2016-10-15] MEDS: Heparin 25,000units in D5W 25,000 UNITS/250 ML BAG IV PRN ×2 (01:45→18:53)
[2016-10-15 07:45] LABS: ALKALINE PHOSPHATASE 82 U/L (38-133); ALT/SGPT 58 U/L (7-56); AST/SGOT 137 U/L (15-39); BILIRUBIN,TOTAL 0.6 mg/dL (0.2-1.3); BLOOD UREA NITROGEN 6 mg/dL (7-21); CALCIUM 8.5 mg/dL (8.4-10.5); CARBON DIOXIDE 31 mmol/L (21-33); CHLORIDE 101 mmol/L (95-110); GFR AFRICAN-AMERICAN > 60; GLUCOSE,RANDOM 104 mg/dL (70-110); SODIUM 138 mmol/L (132-148); TOTAL PROTEIN 6.2 g/dL (5.8-8.3)
[2016-10-15 07:57] LABS: POTASSIUM 2.8 mmol/L (3.6-5.0)
[2016-10-15] MEDS: Levothyroxine 100 MCG TAB PO SCH (09:40)
[2016-10-15] MEDS: Cilostazol 100 mg Tab UD PO SCH ×2 (09:41→18:05)
[2016-10-15] MEDS: ceFAZolin 1 gm in NS 1 GM/100 ML BAG IVPB SCH (09:41)
[2016-10-15] MEDS: HYDROmorphone 2 mg/ml ISec IVP PRN (09:41)
--- NOTE | 2016-10-15 11:05 | RAD ---
HISTORY: O2 sat below 90% COMPARISON: 10/10/2016 FINDINGS: LUNGS: No active pulmonary disease. PLEURA: No significant pleural effusion identified, no pneumothorax apparent. CARDIOVASCULAR: Normal. OSSEOUS STRUCTURES: No significant abnormalities. VISUALIZED UPPER ABDOMEN: Normal. OTHER FINDINGS: None. IMPRESSION: No active disease.
--- NOTE | 2016-10-15 13:12 | CP.PCM.PN ---
<Diallo Reid - Last Filed: 10/15/16 13:09> Subjective - Date & Time of Evaluation Date of Evaluation: 10/15/16 Time of Evaluation: 11:00 - Subjective Subjective: 66 year old female patient 1day s/p Angioplaty / thrombolysis of right lower extremity was seen at bedside ICU this AM . Patient resting comfortably in bed with no acute distress. Patient's Right foot was pressured against the bed panel distally. Strongly advised patient to keep her right foot away from the bed panel for better circulation. Patient denies of any N/V/F/C or SOB today Objective - Vital Signs/Intake and Output Vital Signs (last 24 hours): Temp Pulse Resp BP Pulse Ox 98.3 F 77 29 H 126/52 L 97 10/15/16 05:53 10/15/16 09:40 10/15/16 09:26 10/15/16 09:40 10/15/16 09:26 Intake and Output: 10/15/16 10/15/16 06:59 18:59 Intake Total 564 Output Total 700 Balance -136 - Medications Medications: Current Medications Acetaminophen (Tylenol 325mg Tab) 650 mg PO Q6H PRN PRN Reason: Pain, Mild (1-3) Acetaminophen (Tylenol 325mg Tab) 650 mg PO Q4H PRN PRN Reason: Pain, Mild (1-3) Atorvastatin Calcium (Lipitor) 20 mg PO DIN [facility] Last Admin: 10/14/16 17:34 Dose: 20 mg Cilostazol (Pletal) 100 mg PO BID [facility] Last Admin: 10/15/16 09:41 Dose: 100 mg Clopidogrel Bisulfate (Plavix) 75 mg PO DAILY [facility] Last Admin: 10/15/16 09:40 Dose: 75 mg Gabapentin (Neurontin) 600 mg PO BID [facility] PRN Reason: Protocol Last Admin: 10/15/16 09:40 Dose: 600 mg Hydralazine HCl (Apresoline) 10 mg IVP Q6 PRN PRN Reason: HTN Last Admin: 10/12/16 02:28 Dose: 10 mg Hydromorphone HCl (Dilaudid) 2 mg IVP Q4H PRN PRN Reason: Pain, severe (8-10) Last Admin: 10/15/16 09:41 Dose: 2 mg Heparin Sodium/Dextrose (Heparin 25,000 Units/250ml In D5w) 25,000 units in 250 mls @ 16.329 mls/hr IV .[id number] PRN; Protocol; 18 UNITS/KG/HR PRN Reason: ADJUST RATE PER PROTOCOL Last Titration: 10/15/16 06:50 Dose: 16.97 units/kg/hr, 15.4 mls/hr Cefazolin Sodium (Ancef 1gm In Ns) 1 gm in 100 mls @ 100 mls/hr IVPB QAM [facility] PRN Reason: Protocol Last Admin: 10/15/16 09:41 Dose: 100 mls/hr Potassium Chloride (Potassium Chloride 20 Meq/100 Ml) 20 meq in 100 mls @ 50 mls/hr IVPB BID [facility] Stop: 10/15/16 19:59 Last Admin: 10/15/16 08:23 Dose: 50 mls/hr Levothyroxine Sodium (Synthroid) 100 mcg PO DAILY [facility] Last Admin: 10/15/16 09:40 Dose: 100 mcg Lorazepam (Ativan) 2 mg IVP Q6H PRN PRN Reason: Anxiety Last Admin: 10/11/16 21:00 Dose: 2 mg Losartan Potassium (Cozaar) 50 mg PO DAILY [facility] Last Admin: 10/15/16 09:40 Dose: 50 mg Nicotine (Nicoderm Cq) 1 patch TD DAILY [facility] Last Admin: 10/14/16 10:52 Dose: 1 patch Ondansetron HCl (Zofran Inj) 4 mg IVP Q4H PRN PRN Reason: Nausea/Vomiting Last Admin: 10/11/16 20:09 Dose: 4 mg Pantoprazole Sodium (Protonix Ec Tab) 40 mg PO 0600 [facility] Last Admin: 10/14/16 05:31 Dose: 40 mg - Labs Labs: 10/14/16 06:05 10/15/16 06:30 PT 12.5 Seconds (9.9-11.8) H 10/13/16 06:00 INR 1.16 (0.93-1.08) H 10/13/16 06:00 APTT 44.7 Seconds (23.7-30.8) H 10/15/16 06:00 - Constitutional Appears: Well, Non-toxic, No Acute Distress - Head Exam Head Exam: ATRAUMATIC - Extremities Exam Additional comments: Bilateral lower extremities exam DERM Right: No open wound is noted. Dusky discoloration to right lower extremity has improved to normal skin color. No erythema is noted. No drainage is noted. No sign of acute infection is noted. Left: No open wound is noted. No erythema is noted. No drainage is noted. No sign of acute infection is noted. VASC: Right: Capillary refill time is normal less than 3 seconds to all digits. 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 Skin warm to touch ORTHO: Slight atrophy noted to the musculature of the right lower extremity as compared to that of the Left. Pain on palpation to joints distal to right ankle. No pain is induced for left lower extremity. Drop foot is noted to right lower extremity with plantarflexed foot at the ankle. Decreased Passive and active dorsiflexion is noted at the Right ankle secondary to guarding. - Neurological Exam Neurological Exam: Alert, Awake, Oriented x3 - Psychiatric Exam Psychiatric exam: Normal Affect, Normal Mood - Skin Skin Exam: Normal Color, Warm Assessment and Plan - Assessment and Plan (Free Text) Assessment: 66 yo female patient with PAD: right lower extremity ischemia, s/p angioplasty and thrombolysis of Right Anterior Tibial artery and femoral-popliteal bypass graft Plan: Patient was seen, evaluated at the bedside CCU this AM Labs and vitals reviewed Continue Anti-coagulation as per Vascular Physical therapy consulted; Right drop foot Podiatry will continue to follow in-house <Stephon Franco - Last Filed: 10/15/16 16:33> Objective - Vital Signs/Intake and Output Vital Signs (last 24 hours): Temp Pulse Resp BP Pulse Ox 98.0 F 77 29 H 126/52 L 97 10/15/16 12:00 10/15/16 14:00 10/15/16 09:26 10/15/16 09:40 10/15/16 09:26 Intake and Output: 10/15/16 10/15/16 06:59 18:59 Intake Total 564 Output Total 700 Balance -136 - Medications Medications: Current Medications Acetaminophen (Tylenol 325mg Tab) 650 mg PO Q6H PRN PRN Reason: Pain, Mild (1-3) Acetaminophen (Tylenol 325mg Tab) 650 mg PO Q4H PRN PRN Reason: Pain, Mild (1-3) Atorvastatin Calcium (Lipitor) 20 mg PO DIN [facility] Last Admin: 10/14/16 17:34 Dose: 20 mg Cilostazol (Pletal) 100 mg PO BID [facility] Last Admin: 10/15/16 09:41 Dose: 100 mg Clopidogrel Bisulfate (Plavix) 75 mg PO DAILY [facility] Last Admin: 10/15/16 09:40 Dose: 75 mg Gabapentin (Neurontin) 600 mg PO BID [facility] PRN Reason: Protocol Last Admin: 10/15/16 09:40 Dose: 600 mg Hydralazine HCl (Apresoline) 10 mg IVP Q6 PRN PRN Reason: HTN Last Admin: 10/12/16 02:28 Dose: 10 mg Hydromorphone HCl (Dilaudid) 2 mg IVP Q4H PRN PRN Reason: Pain, severe (8-10) Last Admin: 10/15/16 09:41 Dose: 2 mg Heparin Sodium/Dextrose (Heparin 25,000 Units/250ml In D5w) 25,000 units in 250 mls @ 16.329 mls/hr IV .[id number] PRN; Protocol; 18 UNITS/KG/HR PRN Reason: ADJUST RATE PER PROTOCOL Last Titration: 10/15/16 06:50 Dose: 16.97 units/kg/hr, 15.4 mls/hr Cefazolin Sodium (Ancef 1gm In Ns) 1 gm in 100 mls @ 100 mls/hr IVPB QAM [facility] PRN Reason: Protocol Last Admin: 10/15/16 09:41 Dose: 100 mls/hr Potassium Chloride (Potassium Chloride 20 Meq/100 Ml) 20 meq in 100 mls @ 50 mls/hr IVPB BID [facility] Stop: 10/15/16 19:59 Last Admin: 10/15/16 08:23 Dose: 50 mls/hr Levothyroxine Sodium (Synthroid) 100 mcg PO DAILY [facility] Last Admin: 10/15/16 09:40 Dose: 100 mcg Lorazepam (Ativan) 2 mg IVP Q6H PRN PRN Reason: Anxiety Last Admin: 10/11/16 21:00 Dose: 2 mg Losartan Potassium (Cozaar) 50 mg PO DAILY [facility] Last Admin: 10/15/16 09:40 Dose: 50 mg Nicotine (Nicoderm Cq) 1 patch TD DAILY [facility] Last Admin: 10/14/16 10:52 Dose: 1 patch Ondansetron HCl (Zofran Inj) 4 mg IVP Q4H PRN PRN Reason: Nausea/Vomiting Last Admin: 10/11/16 20:09 Dose: 4 mg Pantoprazole Sodium (Protonix Ec Tab) 40 mg PO 0600 [facility] Last Admin: 10/14/16 05:31 Dose: 40 mg - Labs Labs: 10/14/16 06:05 10/15/16 06:30 PT 12.5 Seconds (9.9-11.8) H 10/13/16 06:00 INR 1.16 (0.93-1.08) H 10/13/16 06:00 APTT 67.5 Seconds (23.7-30.8) H 10/15/16 14:30 Attending/Attestation - Attestation I have personally seen and examined this patient.: Yes I have fully participated in the care of the patient.: Yes I have reviewed all pertinent clinical information, including history, physical exam and plan: Yes
--- NOTE | 2016-10-15 21:45 | CP.PCM.PN ---
Subjective - Date & Time of Evaluation Date of Evaluation: 10/15/16 Time of Evaluation: 07:40 - Subjective Subjective: Pt s/e bedside. She states that the pain in her RLE is much better. Pt states she still doesn't have full mobility back in her R foot. Denies CP/sob/f/ch/n/v /d. Objective - Vital Signs/Intake and Output Vital Signs (last 24 hours): Temp Pulse Resp BP Pulse Ox 98.0 F 85 25 H 125/52 L 94 L 10/15/16 12:00 10/15/16 20:00 10/15/16 19:00 10/15/16 20:00 10/15/16 20:00 Intake and Output: 10/15/16 10/16/16 18:59 06:59 Intake Total 200 Balance 200 - Medications Medications: Current Medications Acetaminophen (Tylenol 325mg Tab) 650 mg PO Q6H PRN PRN Reason: Pain, Mild (1-3) Acetaminophen (Tylenol 325mg Tab) 650 mg PO Q4H PRN PRN Reason: Pain, Mild (1-3) Atorvastatin Calcium (Lipitor) 20 mg PO DIN [facility] Last Admin: 10/15/16 18:03 Dose: 20 mg Cilostazol (Pletal) 100 mg PO BID [facility] Last Admin: 10/15/16 18:05 Dose: 100 mg Clopidogrel Bisulfate (Plavix) 75 mg PO DAILY [facility] Last Admin: 10/15/16 09:40 Dose: 75 mg Gabapentin (Neurontin) 600 mg PO BID [facility] PRN Reason: Protocol Last Admin: 10/15/16 18:02 Dose: 600 mg Hydralazine HCl (Apresoline) 10 mg IVP Q6 PRN PRN Reason: HTN Last Admin: 10/12/16 02:28 Dose: 10 mg Heparin Sodium/Dextrose (Heparin 25,000 Units/250ml In D5w) 25,000 units in 250 mls @ 16.329 mls/hr IV .[id number] PRN; Protocol; 18 UNITS/KG/HR PRN Reason: ADJUST RATE PER PROTOCOL Last Admin: 10/15/16 18:53 Dose: 16.97 units/kg/hr, 15.4 mls/hr Cefazolin Sodium (Ancef 1gm In Ns) 1 gm in 100 mls @ 100 mls/hr IVPB QAM [facility] PRN Reason: Protocol Last Admin: 10/15/16 09:41 Dose: 100 mls/hr Levothyroxine Sodium (Synthroid) 100 mcg PO DAILY [facility] Last Admin: 10/15/16 09:40 Dose: 100 mcg Lorazepam (Ativan) 2 mg IVP Q6H PRN PRN Reason: Anxiety Last Admin: 10/11/16 21:00 Dose: 2 mg Losartan Potassium (Cozaar) 50 mg PO DAILY [facility] Last Admin: 10/15/16 09:40 Dose: 50 mg Nicotine (Nicoderm Cq) 1 patch TD DAILY [facility] Last Admin: 10/15/16 18:05 Dose: 1 patch Ondansetron HCl (Zofran Inj) 4 mg IVP Q4H PRN PRN Reason: Nausea/Vomiting Last Admin: 10/11/16 20:09 Dose: 4 mg Pantoprazole Sodium (Protonix Ec Tab) 40 mg PO 0600 [facility] Last Admin: 10/14/16 05:31 Dose: 40 mg - Labs Labs: 10/14/16 06:05 10/15/16 06:30 PT 12.5 Seconds (9.9-11.8) H 10/13/16 06:00 INR 1.16 (0.93-1.08) H 10/13/16 06:00 APTT 58.1 Seconds (23.7-30.8) H 10/15/16 20:45 - Additional Findings Additional findings: Phys Exam: VS as below Constitutional: a&o x 4, nad Head and Neck: neck supple, no jvd, trachea midline, carotid midline, no cervical/head mass Eyes: jon, nonicteric sclera, eom intact ENT: auditory acuity grossly intact, throat not congested, no nasal deformity Cardio: rrr, no m/r/g, no carotid bruit, nml s1, s2 Pulm: no accessory muscle use, equal nml breath sounds bilaterally, ctab Abd: s/nt/nd, nbs x 4 q, no palpable masses Derm: no rashes, no ulcers, no lesions Extr: bilateral femoral pulses palpable, distal pulses now palpable b/l. Bilateral LEs cool but right is no longer cold. capillary refill time 3 secs on left, no longer severely delayed on right. no calf tenderness to compression. patient able to freely move LLE without pain; Not able to wiggle right toes yet. Right foot no longer discolored. Neuro: cn II-XII grossly intact, ue and le 5/5 muscle strength bilaterally, no los ue, le bilaterally and core Assessment and Plan - Assessment and Plan (Free Text) Assessment: 66 yo F with vasculopathy with bilateral femoral popliteal grafts, 78 pack year history of smoking, CAD with history of [place] in 1999, who presents with RLE pain. Patient was scheduled to see Dr. Jeremias Talbot tomorrow, but due to the severity of symptoms, color changes, numbness, and pallor in the RLE, she came to ED. Patient started on heparin drip, vascular surgery and interventional radiology consulted. Plan: 1) Right LE pain secondary to PVD - See details of CT above - Vascular surgery: Dr. Jeremias Talbot - Interventional Radiology consulted: Dr. Jeremias Talbot. Took pt for [facility] - revascularized yesterday, 10/13. Started on Heparin drip Will decide anticoagulation - last note I saw was for a direct thrombin inhibitor, most likely Pradexa - Patient is on Plavix - General Surg consulted: Dr. Parkinson Ischemia appears to be chronic in nature, not acute LE fed by collaterals No acute surgical intervention at this time - Patient is NPO, except for medications - Monitor distal pulses q4h - Vitals q8h - Heparin drip - PT/PTT per protocol - Analgesia with Morphine 2 mg IVP q4h PRN, Percocet PRN, Tylenol PRN - Atorvastatin 20 mg PO DIN - C/W home Cilostazol 100 mg PO BID - Holding/stopped home NSAIDs - Podiatry c/s: Continue Anti-coagulation as per Vascular Physical therapy consulted; Right drop foot 2) CAD - C/W Plavix 75 mg PO daily - C/W Atorvastatin as detailed above, dual benefit in this patient - C/W Losartan 50 mg PO daily 3) Peripheral neuropathy, most likely secondary to Peripheral Vascular Disease - C/W Neurontin 600 mg BID 4) Hypothyroidism C/W Levothyroxine 100 mcg PO daily 5) GI prophylaxis: Protonix 40 mg ACB 6) Hypokalemia - Initial Potassium of 3.3 - 40 mEq given PO, will continue to monitor with daily CMP
[2016-10-16] MEDS: Pantoprazole 40 mg EC Tab PO SCH (06:05)
--- NOTE | 2016-10-16 08:25 | CP.PCM.PN ---
<Diallo Reid - Last Filed: 10/16/16 08:23> Subjective - Date & Time of Evaluation Date of Evaluation: 10/16/16 Time of Evaluation: 08:23 - Subjective Subjective: 66 year old female patient 1day s/p Angioplaty / thrombolysis of right lower extremity was seen at bedside ICU this AM . Patient resting comfortably in bed with no acute distress. Pain to right leg. Patient denies of any N/V/F/C or SOB today Objective - Vital Signs/Intake and Output Vital Signs (last 24 hours): Temp Pulse Resp BP Pulse Ox 98.8 F 71 28 H 148/115 H 95 10/16/16 06:00 10/16/16 07:33 10/16/16 07:00 10/16/16 07:33 10/16/16 06:01 Intake and Output: 10/16/16 10/16/16 06:59 18:59 Intake Total 1650 Output Total 950 Balance 700 - Medications Medications: Current Medications Acetaminophen (Tylenol 325mg Tab) 650 mg PO Q6H PRN PRN Reason: Pain, Mild (1-3) Acetaminophen (Tylenol 325mg Tab) 650 mg PO Q4H PRN PRN Reason: Pain, Mild (1-3) Atorvastatin Calcium (Lipitor) 20 mg PO DIN [facility] Last Admin: 10/15/16 18:03 Dose: 20 mg Cilostazol (Pletal) 100 mg PO BID [facility] Last Admin: 10/15/16 18:05 Dose: 100 mg Clopidogrel Bisulfate (Plavix) 75 mg PO DAILY [facility] Last Admin: 10/15/16 09:40 Dose: 75 mg Gabapentin (Neurontin) 600 mg PO BID [facility] PRN Reason: Protocol Last Admin: 10/15/16 18:02 Dose: 600 mg Hydralazine HCl (Apresoline) 10 mg IVP Q6 PRN PRN Reason: HTN Last Admin: 10/12/16 02:28 Dose: 10 mg Heparin Sodium/Dextrose (Heparin 25,000 Units/250ml In D5w) 25,000 units in 250 mls @ 16.329 mls/hr IV .[id number] PRN; Protocol; 18 UNITS/KG/HR PRN Reason: ADJUST RATE PER PROTOCOL Last Admin: 10/15/16 18:53 Dose: 16.97 units/kg/hr, 15.4 mls/hr Cefazolin Sodium (Ancef 1gm In Ns) 1 gm in 100 mls @ 100 mls/hr IVPB QAM [facility] PRN Reason: Protocol Last Admin: 10/15/16 09:41 Dose: 100 mls/hr Levothyroxine Sodium (Synthroid) 100 mcg PO DAILY [facility] Last Admin: 10/15/16 09:40 Dose: 100 mcg Lorazepam (Ativan) 2 mg IVP Q6H PRN PRN Reason: Anxiety Last Admin: 10/11/16 21:00 Dose: 2 mg Losartan Potassium (Cozaar) 50 mg PO DAILY [facility] Last Admin: 10/15/16 09:40 Dose: 50 mg Nicotine (Nicoderm Cq) 1 patch TD DAILY [facility] Last Admin: 10/15/16 18:05 Dose: 1 patch Ondansetron HCl (Zofran Inj) 4 mg IVP Q4H PRN PRN Reason: Nausea/Vomiting Last Admin: 10/11/16 20:09 Dose: 4 mg Pantoprazole Sodium (Protonix Ec Tab) 40 mg PO 0600 [facility] Last Admin: 10/16/16 06:05 Dose: 40 mg - Labs Labs: 10/14/16 06:05 10/16/16 06:35 PT 12.5 Seconds (9.9-11.8) H 10/13/16 06:00 INR 1.16 (0.93-1.08) H 10/13/16 06:00 APTT 51.6 Seconds (23.7-30.8) H 10/16/16 06:35 - Constitutional Appears: Well, Non-toxic, No Acute Distress - Extremities Exam Additional comments: Bilateral lower extremities exam DERM Right: No open wound is noted. normal skin color. No erythema is noted. No drainage is noted. No sign of acute infection is noted. Left: No open wound is noted. No erythema is noted. No drainage is noted. No sign of acute infection is noted. VASC: Right: Capillary refill time is normal less than 3 seconds to all digits. 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 Skin warm to touch ORTHO: Slight atrophy noted to the musculature of the right lower extremity as compared to that of the Left. Pain on palpation to joints distal to right ankle. No pain is induced for left lower extremity. Drop foot is noted to right lower extremity with plantarflexed foot at the ankle. Decreased Passive and active dorsiflexion is noted at the Right ankle secondary to guarding. - Neurological Exam Neurological Exam: Alert, Awake, Oriented x3 - Psychiatric Exam Psychiatric exam: Normal Affect, Normal Mood - Skin Skin Exam: Normal Color, Warm Assessment and Plan - Assessment and Plan (Free Text) Assessment: 66 yo female patient with PAD: right lower extremity ischemia, s/p angioplasty and thrombolysis of Right Anterior Tibial artery and femoral-popliteal bypass graft Plan: Patient was seen, evaluated at the bedside CCU this AM Labs and vitals reviewed Continue Anti-coagulation as per Vascular Physical therapy consulted; Right drop foot Podiatry will continue to follow in-house <Renuka Beaulieu - Last Filed: 10/24/16 19:39> Objective - Vital Signs/Intake and Output Vital Signs (last 24 hours): Temp Pulse Resp BP Pulse Ox 98.7 F 74 21 118/84 99 10/17/16 12:00 10/17/16 16:00 10/17/16 16:00 10/17/16 14:28 10/17/16 00:01 - Labs Labs: 10/17/16 05:15 10/17/16 05:15 PT 12.5 Seconds (9.9-11.8) H 10/13/16 06:00 INR 1.16 (0.93-1.08) H 10/13/16 06:00 APTT 62.6 Seconds (23.7-30.8) H 10/17/16 05:15 Attending/Attestation - Attestation I have personally seen and examined this patient.: Yes I have fully participated in the care of the patient.: Yes I have reviewed all pertinent clinical information, including history, physical exam and plan: Yes
[2016-10-16] MEDS: ceFAZolin 1 gm in NS 1 GM/100 ML BAG IVPB SCH (09:48)
[2016-10-16] MEDS: Levothyroxine 100 MCG TAB PO SCH (09:49)
[2016-10-16] MEDS: Cilostazol 100 mg Tab UD PO SCH ×2 (09:51→17:14)
[2016-10-16] MEDS: Heparin 25,000units in D5W 25,000 UNITS/250 ML BAG IV PRN (12:08)
[2016-10-16] MEDS: Potassium Chloride 20 mEq ER Tab PO SCH ×2 (12:53→17:09)
[2016-10-16] MEDS: Oxycodone/Acetaminophen 5/325 mg Tab PO PRN ×2 (15:20→22:28)
[2016-10-16] MEDS ORDERED: Vancomycin 1gm in NS 250ml 1 GM/250 ML BAG IVPB STA (16:08)
--- NOTE | 2016-10-16 16:19 | CP.PCM.PN ---
Subjective - Date & Time of Evaluation Date of Evaluation: 10/16/16 Time of Evaluation: 06:45 - Subjective Subjective: Pt s/e bedside. Pt states that her RLE is swollen and painful, which is different from yesterday. Other than that, patient denies f/ch/n/v/d/sob/cp. Awaiting a note from Dr. Talbot to determine anticoagulation for the patient. Patient is no longer in ICU. Objective - Vital Signs/Intake and Output Vital Signs (last 24 hours): Temp Pulse Resp BP Pulse Ox 100.3 F H 81 29 H 130/50 L 95 10/16/16 15:27 10/16/16 14:00 10/16/16 14:00 10/16/16 14:00 10/16/16 06:01 Intake and Output: 10/16/16 10/16/16 06:59 18:59 Intake Total 1650 250 Output Total 950 Balance 700 250 - Medications Medications: Current Medications Acetaminophen (Tylenol 325mg Tab) 650 mg PO Q6H PRN PRN Reason: Pain, Mild (1-3) Acetaminophen (Tylenol 325mg Tab) 650 mg PO Q4H PRN PRN Reason: Pain, Mild (1-3) Atorvastatin Calcium (Lipitor) 20 mg PO DIN [facility] Last Admin: 10/15/16 18:03 Dose: 20 mg Cilostazol (Pletal) 100 mg PO BID [facility] Last Admin: 10/16/16 09:51 Dose: 100 mg Clopidogrel Bisulfate (Plavix) 75 mg PO DAILY [facility] Last Admin: 10/16/16 09:49 Dose: 75 mg Gabapentin (Neurontin) 600 mg PO BID [facility] PRN Reason: Protocol Last Admin: 10/16/16 09:49 Dose: 600 mg Hydralazine HCl (Apresoline) 10 mg IVP Q6 PRN PRN Reason: HTN Last Admin: 10/12/16 02:28 Dose: 10 mg Heparin Sodium/Dextrose (Heparin 25,000 Units/250ml In D5w) 25,000 units in 250 mls @ 16.329 mls/hr IV .[id number] PRN; Protocol; 18 UNITS/KG/HR PRN Reason: ADJUST RATE PER PROTOCOL Last Admin: 10/16/16 12:08 Dose: 16.97 units/kg/hr, 15.395 mls/hr Cefazolin Sodium (Ancef 1gm In Ns) 1 gm in 100 mls @ 100 mls/hr IVPB QAM FAWAD PRN Reason: Protocol Last Admin: 10/16/16 09:48 Dose: 100 mls/hr Levothyroxine Sodium (Synthroid) 100 mcg PO DAILY [facility] Last Admin: 10/16/16 09:49 Dose: 100 mcg Lorazepam (Ativan) 2 mg IVP Q6H PRN PRN Reason: Anxiety Last Admin: 10/11/16 21:00 Dose: 2 mg Losartan Potassium (Cozaar) 50 mg PO DAILY [facility] Last Admin: 10/16/16 09:49 Dose: 50 mg Nicotine (Nicoderm Cq) 1 patch TD DAILY [facility] Last Admin: 10/16/16 09:50 Dose: 1 patch Ondansetron HCl (Zofran Inj) 4 mg IVP Q4H PRN PRN Reason: Nausea/Vomiting Last Admin: 10/11/16 20:09 Dose: 4 mg Oxycodone/Acetaminophen (Percocet 5/325 Mg Tab) 1 tab PO Q6H PRN PRN Reason: Pain, moderate (4-7) Stop: 10/19/16 14:52 Last Admin: 10/16/16 15:20 Dose: 1 tab Pantoprazole Sodium (Protonix Ec Tab) 40 mg PO 0600 [facility] Last Admin: 10/16/16 06:05 Dose: 40 mg Potassium Chloride (K-Dur 20 Meq Er Tab) 20 meq PO BID [facility] Last Admin: 10/16/16 12:53 Dose: 20 meq - Labs Labs: 10/14/16 06:05 10/16/16 06:35 PT 12.5 Seconds (9.9-11.8) H 10/13/16 06:00 INR 1.16 (0.93-1.08) H 10/13/16 06:00 APTT 51.6 Seconds (23.7-30.8) H 10/16/16 06:35 - Additional Findings Additional findings: Phys Exam: VS as below Constitutional: a&o x 4, nad Head and Neck: neck supple, no jvd, trachea midline, carotid midline, no cervical/head mass Eyes: jon, nonicteric sclera, eom intact ENT: auditory acuity grossly intact, throat not congested, no nasal deformity Cardio: rrr, no m/r/g, no carotid bruit, nml s1, s2 Pulm: no accessory muscle use, equal nml breath sounds bilaterally, ctab Abd: s/nt/nd, nbs x 4 q, no palpable masses Derm: no rashes, no ulcers, no lesions Extr: bilateral femoral pulses palpable, distal pulses now palpable b/l. Bilateral LEs cool but right is no longer cold. capillary refill time 3 secs on left, no longer severely delayed on right. no calf tenderness to compression. patient able to freely move LLE without pain; Not able to wiggle right toes yet. Right foot no longer discolored. Neuro: cn II-XII grossly intact, ue and le 5/5 muscle strength bilaterally, no los ue, le bilaterally and core Assessment and Plan - Assessment and Plan (Free Text) Assessment: 66 yo F with vasculopathy with bilateral femoral popliteal grafts, 78 pack year history of smoking, CAD with history of [place] in 1999, who presents with RLE pain. Patient was scheduled to see Dr. Jeremias Talbot tomorrow, but due to the severity of symptoms, color changes, numbness, and pallor in the RLE, she came to ED. Patient started on heparin drip, vascular surgery and interventional radiology consulted. Plan: 1) Right LE pain secondary to PVD - See details of CT above - Vascular surgery: Dr. Jeremias Talbot - Interventional Radiology consulted: Dr. Jeremias Talbot. Took pt for [facility] - revascularized yesterday, 10/13. Started on Heparin drip Will decide anticoagulation - last note I saw was for a direct thrombin inhibitor, most likely Pradexa - Patient is on Plavix - General Surg consulted: Dr. Parkinson Ischemia appears to be chronic in nature, not acute LE fed by collaterals No acute surgical intervention at this time - Patient is NPO, except for medications - Monitor distal pulses q4h - Vitals q8h - Heparin drip - PT/PTT per protocol - Analgesia with Morphine 2 mg IVP q4h PRN, Percocet PRN, Tylenol PRN - Atorvastatin 20 mg PO DIN - C/W home Cilostazol 100 mg PO BID - Holding/stopped home NSAIDs - Podiatry c/s: Continue Anti-coagulation as per Vascular Physical therapy consulted; Right drop foot - New swelling and pain in RLE Doppler U/s ESR Abx: one dose of vanc + clinda ID C/s: [place] Lasix 2) CAD - C/W Plavix 75 mg PO daily - C/W Atorvastatin as detailed above, dual benefit in this patient - C/W Losartan 50 mg PO daily 3) Peripheral neuropathy, most likely secondary to Peripheral Vascular Disease - C/W Neurontin 600 mg BID 4) Hypothyroidism C/W Levothyroxine 100 mcg PO daily 5) GI prophylaxis: Protonix 40 mg ACB 6) Hypokalemia - Initial Potassium of 3.3 - 40 mEq given PO, will continue to monitor with daily CMP
[2016-10-17] MEDS: Vancomycin 1gm in NS 250ml 1 GM/250 ML BAG IVPB SCH ×2 (00:23→11:13)
[2016-10-17] MEDS: Meropenem 1g/NS 100mL IVPB 1 GM/100 ML PIGGYBACK IVPB SCH ×3 (00:23→14:38)
[2016-10-17 00:52] VITALS: O2SAT 99
[2016-10-17 04:00] LABS: URINE BILIRUBIN NEGATIVE (NEGATIVE); URINE BLOOD LARGE (NEGATIVE); URINE GLUCOSE (UA) NEGATIVE (NEGATIVE); URINE KETONE NEGATIVE (NEGATIVE); URINE LEUKOCYTE ESTERASE NEGATIVE Leu/uL (NEGATIVE); URINE PROTEIN TRACE mg/dL (<30 mg/dL)
[2016-10-17 04:03] LABS: URINE APPEARANCE SL CLOUDY (CLEAR); URINE COLOR YELLOW (YELLOW)
[2016-10-17 04:14] LABS: URINE BACTERIA RARE (NEG); URINE WBC 0 - 2 /hpf (0-6)
[2016-10-17] MEDS: Pantoprazole 40 mg EC Tab PO SCH (05:26)
[2016-10-17 06:02] LABS: BASO # 0.05 K/mm3 (0.0-2.0); BASO % 0.4 % (0.0-3.0); EOS # 0.9 (0.0-0.7); EOS % 6.6 % (1.5-5.0); GRAN # 8.33 (1.4-6.5); GRAN % 62.9 % (50.0-68.0); HEMATOCRIT 32.4 % (36.0-48.0); LYMPH % 22.3 % (22.0-35.0); MEAN CELL VOLUME 93.1 fl (80.0-105.0); MEAN CORPUSCULAR HEMOGLOBIN 31.6 pg (25.0-35.0); MEAN PLATELET VOLUME 9.2 fl (7.0-11.0); MONO % 7.8 % (1.0-6.0); RED CELL DISTRIBUTION WIDTH 13.7 % (11.5-14.5); WHITE BLOOD COUNT 13.2 10^3/ul (4.5-11.0)
[2016-10-17 06:12] LABS: ALKALINE PHOSPHATASE 83 U/L (38-133); ALT/SGPT 69 U/L (7-56); AST/SGOT 104 U/L (15-39); BILIRUBIN,TOTAL 0.5 mg/dL (0.2-1.3); BLOOD UREA NITROGEN 7 mg/dL (7-21); CALCIUM 8.6 mg/dL (8.4-10.5); CARBON DIOXIDE 31 mmol/L (21-33); CHLORIDE 98 mmol/L (98-107); GFR AFRICAN-AMERICAN > 60; GLUCOSE,RANDOM 105 mg/dL (70-110); MAGNESIUM 1.9 mg/dL (1.7-2.2); SODIUM 138 mmol/L (132-148); TOTAL PROTEIN 6.5 g/dL (5.8-8.3)
[2016-10-17 06:18] LABS: POTASSIUM 2.8 mmol/L (3.6-5.0)
[2016-10-17] MEDS ORDERED: Potassium Chloride 20 mEq ER Tab PO ONE (06:59)
[2016-10-17] MEDS: Levothyroxine 100 MCG TAB PO SCH ×2 (07:34→09:54)
[2016-10-17] MEDS: Cilostazol 100 mg Tab UD PO SCH (09:51)
[2016-10-17] MEDS: Potassium Chloride 20 mEq ER Tab PO SCH (09:52)
--- NOTE | 2016-10-17 10:44 | RAD ---
HISTORY: fever COMPARISON: Comparison chest 10/15/2016 FINDINGS: LUNGS: No active pulmonary disease. PLEURA: No significant pleural effusion identified, no pneumothorax apparent. CARDIOVASCULAR: Mild cardiomegaly. OSSEOUS STRUCTURES: No significant abnormalities. VISUALIZED UPPER ABDOMEN: Normal. OTHER FINDINGS: None. IMPRESSION: No acute consolidation.
--- NOTE | 2016-10-17 13:17 | US ---
HISTORY: Leg pain and swelling. Evaluate for DVT PHYSICIAN(S): Jeremias Talbot MD. TECHNIQUE: Duplex sonography and color-flow Doppler with graded compression were used to evaluate the deep venous systems of both lower extremities. The exam is somewhat limited by body habitus and edema. FINDINGS: The visualized deep venous systems of both lower extremities are sonographically normal and compressible. Normal wave forms and augmentation are seen. There is no sonographic evidence for deep venous thrombosis in the visualized segments of both lower extremities. IMPRESSION: No sonographic evidence for deep venous thrombosis in the visualized segments of both lower extremities.
--- NOTE | 2016-10-17 13:37 | CP.PCM.PN ---
<Diallo Reid - Last Filed: 10/17/16 13:36> Subjective - Date & Time of Evaluation Date of Evaluation: 10/17/16 Time of Evaluation: 13:36 - Subjective Subjective: 66 year old female patient s/p Angioplaty / thrombolysis of right lower extremity was seen at bedside ICU this AM . Patient resting comfortably in bed with no acute distress. Pain to right leg. Patient denies of any N/V/F/C or SOB today Objective - Vital Signs/Intake and Output Vital Signs (last 24 hours): Temp Pulse Resp BP Pulse Ox 98.3 F 77 26 H 125/74 99 10/17/16 04:00 10/17/16 13:00 10/17/16 13:00 10/17/16 10:00 10/17/16 00:01 Intake and Output: 10/17/16 10/17/16 06:59 18:59 Intake Total 933 Output Total 2100 Balance -1167 - Medications Medications: Current Medications Acetaminophen (Tylenol 325mg Tab) 650 mg PO Q6H PRN PRN Reason: Pain, Mild (1-3) Acetaminophen (Tylenol 325mg Tab) 650 mg PO Q4H PRN PRN Reason: Pain, Mild (1-3) Atorvastatin Calcium (Lipitor) 20 mg PO DIN [facility] Last Admin: 10/16/16 17:10 Dose: 20 mg Cilostazol (Pletal) 100 mg PO BID [facility] Last Admin: 10/17/16 09:51 Dose: 100 mg Clopidogrel Bisulfate (Plavix) 75 mg PO DAILY [facility] Last Admin: 10/17/16 09:51 Dose: 75 mg Gabapentin (Neurontin) 600 mg PO BID [facility] PRN Reason: Protocol Last Admin: 10/17/16 09:51 Dose: 600 mg Hydralazine HCl (Apresoline) 10 mg IVP Q6 PRN PRN Reason: HTN Last Admin: 10/12/16 02:28 Dose: 10 mg Heparin Sodium/Dextrose (Heparin 25,000 Units/250ml In D5w) 25,000 units in 250 mls @ 16.329 mls/hr IV .[id number] PRN; Protocol; 18 UNITS/KG/HR PRN Reason: ADJUST RATE PER PROTOCOL Last Admin: 10/16/16 12:08 Dose: 16.97 units/kg/hr, 15.395 mls/hr Meropenem 1g/NS 100mL IVPB (Meropenem 1g/Ns 100ml Ivpb) 1 gm in 100 mls @ 100 mls/hr IVPB Q8 FAWAD PRN Reason: Protocol Stop: 10/25/16 23:12 Last Admin: 10/17/16 05:25 Dose: 100 mls/hr Vancomycin HCl (Vancomycin 1gm) 1 gm in 250 mls @ 167 mls/hr IVPB Q12H FAWAD PRN Reason: Protocol Stop: 10/25/16 23:16 Last Admin: 10/17/16 11:13 Dose: 167 mls/hr Levothyroxine Sodium (Synthroid) 100 mcg PO DAILY [facility] Last Admin: 10/17/16 09:54 Dose: Not Given Lorazepam (Ativan) 2 mg IVP Q6H PRN PRN Reason: Anxiety Last Admin: 10/11/16 21:00 Dose: 2 mg Losartan Potassium (Cozaar) 50 mg PO DAILY [facility] Last Admin: 10/17/16 09:52 Dose: 50 mg Nicotine (Nicoderm Cq) 1 patch TD DAILY [facility] Last Admin: 10/17/16 09:54 Dose: 1 patch Ondansetron HCl (Zofran Inj) 4 mg IVP Q4H PRN PRN Reason: Nausea/Vomiting Last Admin: 10/11/16 20:09 Dose: 4 mg Oxycodone/Acetaminophen (Percocet 5/325 Mg Tab) 1 tab PO Q6H PRN PRN Reason: Pain, moderate (4-7) Stop: 10/19/16 14:52 Last Admin: 10/16/16 22:28 Dose: 1 tab Pantoprazole Sodium (Protonix Ec Tab) 40 mg PO 0600 [facility] Last Admin: 10/17/16 05:26 Dose: 40 mg Potassium Chloride (K-Dur 20 Meq Er Tab) 20 meq PO BID [facility] Last Admin: 10/17/16 09:52 Dose: 20 meq - Labs Labs: 10/17/16 05:15 10/17/16 05:15 PT 12.5 Seconds (9.9-11.8) H 10/13/16 06:00 INR 1.16 (0.93-1.08) H 10/13/16 06:00 APTT 62.6 Seconds (23.7-30.8) H 10/17/16 05:15 - Constitutional Appears: Well, Non-toxic, No Acute Distress - Extremities Exam Additional comments: Bilateral lower extremities exam DERM Right: No open wound is noted. normal skin color. No erythema is noted. No drainage is noted. No sign of acute infection is noted. Left: No open wound is noted. No erythema is noted. No drainage is noted. No sign of acute infection is noted. VASC: Right: Capillary refill time is normal less than 3 seconds to all digits. Skin cool to touch Left: [employer] for Left is <3 seconds to all digits. Skin warm to touch ORTHO: Slight atrophy noted to the musculature of the right lower extremity as compared to that of the Left. Pain on palpation to joints distal to right ankle. No pain is induced for left lower extremity. Drop foot is noted to right lower extremity with plantarflexed foot at the ankle. Decreased Passive and active dorsiflexion is noted at the Right ankle secondary to guarding. - Neurological Exam Neurological Exam: Alert, Awake, Oriented x3 - Psychiatric Exam Psychiatric exam: Normal Affect, Normal Mood - Skin Skin Exam: Normal Color, Warm Assessment and Plan - Assessment and Plan (Free Text) Assessment: 66 yo female patient with PAD: right lower extremity ischemia, s/p angioplasty and thrombolysis of Right Anterior Tibial artery and femoral-popliteal bypass graft Plan: Patient was seen, evaluated at the bedside CCU this AM Labs and vitals reviewed Continue Anti-coagulation as per Vascular Physical therapy consulted; Right drop foot Podiatry will continue to follow in-house <Stephon Franco - Last Filed: 10/19/16 11:29> Objective - Vital Signs/Intake and Output Vital Signs (last 24 hours): Temp Pulse Resp BP Pulse Ox 98.7 F 74 21 118/84 99 10/17/16 12:00 10/17/16 16:00 10/17/16 16:00 10/17/16 14:28 10/17/16 00:01 - Labs Labs: 10/17/16 05:15 10/17/16 05:15 PT 12.5 Seconds (9.9-11.8) H 10/13/16 06:00 INR 1.16 (0.93-1.08) H 10/13/16 06:00 APTT 62.6 Seconds (23.7-30.8) H 10/17/16 05:15 Attending/Attestation - Attestation I have personally seen and examined this patient.: Yes I have fully participated in the care of the patient.: Yes I have reviewed all pertinent clinical information, including history, physical exam and plan: Yes
[2016-10-17 15:03] VITALS: BP 118/84
[2016-10-17 15:04] VITALS: TEMP 98.7
[2016-10-17 17:07] VITALS: PULSE 74; RESP 21
--- NOTE | 2016-10-17 22:14 | CP.PCM.DIS ---
Provider - Provider Date of Admission: 10/10/16 19:37 Attending physician: Akhil Geronimo MD Primary care physician: Brook Gee MD Consults: Dr. Talbot: IR Dr. Beaulieu: Podiatry Dr. Simon: ID Dr. Rutledge: Surgery Dr. Escudero: IR Time Spent in preparation of Discharge (in minutes): 45 Hospital Course - Lab Results Lab Results: Micro Results 10/11/16 21:29 Nose MRSA Culture (Admit) - Final MRSA NOT DETECTED Most Recent Lab Values WBC 13.2 10^3/ul (4.5-11.0) H 10/17/16 05:15 RBC 3.48 10^6/uL (3.5-6.1) L 10/17/16 05:15 Hgb 11.0 g/dL (12.0-16.0) L 10/17/16 05:15 Hct 32.4 % (36.0-48.0) L 10/17/16 05:15 MCV 93.1 fl (80.0-105.0) 10/17/16 05:15 MCH 31.6 pg (25.0-35.0) 10/17/16 05:15 MCHC 34.0 g/dl (31.0-37.0) 10/17/16 05:15 RDW 13.7 % (11.5-14.5) 10/17/16 05:15 Plt Count 296 10^3/uL (120.0-450.0) 10/17/16 05:15 MPV 9.2 fl (7.0-11.0) 10/17/16 05:15 Gran % 62.9 % (50.0-68.0) 10/17/16 05:15 Lymph % (Auto) 22.3 % (22.0-35.0) 10/17/16 05:15 [place] % (Auto) 7.8 % (1.0-6.0) H 10/17/16 05:15 Eos % (Auto) 6.6 % (1.5-5.0) H 10/17/16 05:15 Baso % (Auto) 0.4 % (0.0-3.0) 10/17/16 05:15 Gran # 8.33 (1.4-6.5) H 10/17/16 05:15 Lymph # 3.0 (1.2-3.4) 10/17/16 05:15 [place] # 1.0 (0.1-0.6) H 10/17/16 05:15 Eos # 0.9 (0.0-0.7) H 10/17/16 05:15 Baso # 0.05 K/mm3 (0.0-2.0) 10/17/16 05:15 ESR 102 mm/hr (0.0-20.0) H 10/17/16 10:00 PT 12.5 Seconds (9.9-11.8) H 10/13/16 06:00 INR 1.16 (0.93-1.08) H 10/13/16 06:00 APTT 62.6 Seconds (23.7-30.8) H 10/17/16 05:15 pCO2 50 mm/Hg (35-45) H 10/11/16 22:30 pO2 67.0 mm/Hg (80-100) L 10/11/16 22:30 HCO3 23.5 mmol/L (21-28) 10/11/16 22:30 ABG pH 7.28 (7.35-7.45) L 10/11/16 22:30 ABG Total CO2 25.0 mmol.L (22-28) 10/11/16 22:30 ABG O2 Saturation 95.9 % (95-98) 10/11/16 22:30 ABG O2 Content 18.8 ML/dl (15-23) 10/11/16 22:30 ABG Base Excess -3.8 mmol/L (-2.0-3.0) L 10/11/16 22:30 ABG Hemoglobin 14.5 g/dL (11.7-17.4) 10/11/16 22:30 ABG Carboxyhemoglobin 2.4 % (0.5-1.5) H 10/11/16 22:30 POC ABG HHb (Measured) 3.9 % (0-5) 10/11/16 22:30 ABG Methemoglobin 1.4 % (0.0-3.0) 10/11/16 22:30 ABG O2 Capacity 19.6 mL/dl (16-24) 10/11/16 22:30 VBG pH 7.40 (7.32-7.43) 10/10/16 16:09 VBG pCO2 45.0 (40-60) 10/10/16 16:09 VBG HCO3 27.9 mmol/l (21-28) 10/10/16 16:09 VBG Total CO2 29.3 mmol.L (22-28) H 10/10/16 16:09 VBG O2 Sat (Calc) 100.9 % (40-65) H 10/10/16 16:09 VBG Base Excess 2.5 mmol/L (0.0-2.0) H 10/10/16 16:09 VBG Potassium 3.6 mmol/L (3.6-5.2) 10/10/16 16:09 Hgb O2 Saturation 92.3 % (95.0-98.0) L 10/11/16 22:30 Sodium 140.0 mmol/L (132-148) 10/10/16 16:09 Chloride 104.0 mmol/L (98-107) 10/10/16 16:09 Glucose 128 mg/dl (65-105) H 10/10/16 16:09 Lactate 1.3 mmol/L (0.7-2.1) 10/10/16 16:09 FiO2 32.0 % 10/11/16 22:30 Sodium 138 mmol/L (132-148) 10/17/16 05:15 Potassium 2.8 mmol/L (3.6-5.0) L* 10/17/16 05:15 Chloride 98 mmol/L (98-107) 10/17/16 05:15 Carbon Dioxide 31 mmol/L (21-33) 10/17/16 05:15 Anion Gap 12 (10-20) 10/17/16 05:15 BUN 7 mg/dL (7-21) 10/17/16 05:15 Creatinine 0.7 mg/dL (0.5-1.4) 10/17/16 05:15 Est GFR ( Amer) > 60 10/17/16 05:15 Est GFR (Non-Af Amer) > 60 10/17/16 05:15 Random Glucose 105 mg/dL (70-110) 10/17/16 05:15 Calcium 8.6 mg/dL (8.4-10.5) 10/17/16 05:15 Phosphorus 1.7 mg/dL (2.5-4.5) L 10/14/16 06:05 Magnesium 1.9 mg/dL (1.7-2.2) 10/17/16 05:15 Total Bilirubin 0.5 mg/dL (0.2-1.3) 10/17/16 05:15 AST 104 U/L (15-39) H 10/17/16 05:15 ALT 69 U/L (7-56) H 10/17/16 05:15 Alkaline Phosphatase 83 U/L (38-133) 10/17/16 05:15 C-React Prot High Sens > 15.00 mg/L (1.00-3.00) H 10/17/16 10:00 Total Protein 6.5 g/dL (5.8-8.3) 10/17/16 05:15 Albumin 3.3 g/dL (3.0-4.8) 10/17/16 05:15 Globulin 3.2 gm/dL 10/17/16 05:15 Albumin/Globulin Ratio 1.0 (1.1-1.8) L 10/17/16 05:15 TSH 3rd Generation 2.40 mIU/mL (0.46-4.68) 10/12/16 06:00 Venous Blood Potassium 3.6 mmol/L (3.6-5.2) 10/10/16 16:09 Urine Color Yellow (YELLOW) 10/17/16 01:45 Urine Appearance Sl cloudy (CLEAR) 10/17/16 01:45 Urine pH 6.0 (4.7-8.0) 10/17/16 01:45 Ur Specific [place] >= 1.030 (1.005-1.035) 10/17/16 01:45 Urine Protein Trace mg/dL (<30 mg/dL) H 10/17/16 01:45 Urine Glucose (UA) Negative mg/dL (NEGATIVE) 10/17/16 01:45 Urine Ketones Negative mg/dL (NEGATIVE) 10/17/16 01:45 Urine Blood Large (NEGATIVE) H 10/17/16 01:45 Urine Nitrate Negative (NEGATIVE) 10/17/16 01:45 Urine Bilirubin Negative (NEGATIVE) 10/17/16 01:45 Urine Urobilinogen 1.0 E.U./dL (<1 E.U./dL) H 10/17/16 01:45 Ur Leukocyte Esterase Negative [place]/uL (NEGATIVE) 10/17/16 01:45 Urine RBC 2 - 5 /hpf (0-2) 10/17/16 01:45 Urine WBC 0 - 2 /hpf (0-6) 10/17/16 01:45 Ur Epithelial Cells 1 - 3 /hpf (0-5) 10/17/16 01:45 Urine Bacteria Rare (NEG) 10/17/16 01:45 Blood Type O NEGATIVE 10/10/16 16:09 Antibody Screen Negative 10/10/16 16:09 BBK History Checked Patient has bt 10/10/16 16:09 - Hospital Course Hospital Course: HPI of Admission on 10/10: 66 year old female with a past medical history significant for CAD with [place] in 1999, tobacco abuse, hypothyroidism, and s/p bilateral femoral-popliteal bypass in 2013 who presents with acutely worsening RLE pain that woke her up today at 6 AM in the morning. The pain is located in the right anterior montes and extends into the foot, namely digits 2-5. She states the affected area has associated paresthesias, has changed colors, blue, and that the pain is constant , and only subsides transiently when she hangs her (right) leg off the bed and dangles the foot. She denies any C/P, SOB, focal weakness/numbness in any other extremities, headache, palpitations, diarrhea, nausea, or vomiting. Important to note, she was admitted last for similar symptoms and found to have an arterial clot, but the patient left AMA. Today, she states she was suppose to see a Dr. Talbot tomorrow for evaluation of the RLE pain; however, given the severity of the pain, associated numbness, and pallor; she thought it would be flores to come in immediately to the [facility] for evaluation. During her hospital stay, Ms. Nicholson developed severe loss of function in her RLE, where doppler pulses, sensation, and motor were all lost. Dr. Talbot was able to perform a revascularization of her RLE. Ms. Nicholson then received a heparin drip for 3 days while awaiting confirmation of which oral anticoagulation to place her on. This will be decided while she is recovering in the ICU by Dr. Grider. In addition, patient was placed on Vanc, Merrem, and Clinda for her antibiotics by ID as well as seen by Dr. Beaulieu for her feet. Patient's pulses were obtained by Doppler, functionality returned to her RLE, and she was able to get out of bed and walk before she was deemed stable for discharge to TCU Discharge Exam - Head Exam Head Exam: ATRAUMATIC - Additional Findings Additional findings: Phys Exam: VS as below Constitutional: a&o x 4, nad Head and Neck: neck supple, no jvd, trachea midline, carotid midline, no cervical/head mass Eyes: jon, nonicteric sclera, eom intact ENT: auditory acuity grossly intact, throat not congested, no nasal deformity Cardio: rrr, no m/r/g, no carotid bruit, nml s1, s2 Pulm: no accessory muscle use, equal nml breath sounds bilaterally, ctab Abd: s/nt/nd, nbs x 4 q, no palpable masses Derm: no rashes, no ulcers, no lesions Extr: bilateral femoral pulses palpable, distal pulses now palpable b/l. Bilateral LEs cool but right is no longer cold. capillary refill time 3 secs on left, no longer severely delayed on right. no calf tenderness to compression. patient able to freely move LLE without pain; Not able to wiggle right toes yet. Right foot no longer discolored. Neuro: cn II-XII grossly intact, ue and le 5/5 muscle strength bilaterally, no los ue, le bilaterally and core Discharge Plan - Follow Up Plan Condition: FAIR Disposition: REHAB FACILITY/REHAB UNIT Instructions: How to Stop Smoking (DC), Femoropopliteal Bypass (DC), Hypertension (DC), Angiography (DC), Thrombolysis (DC) Additional Instructions: 1. Please abide by TCU 2. Please continue to take your medications as prescribed 3. Please make sure to follow the advice given to you regarding smoking cessation Referrals: Ryan Schmitt MD [Staff Provider] - Brook Gee MD [Primary Care Provider] -
--- NOTE | 2016-10-17 22:37 | CON ---
DATE: 10/17/2016 The patient seen in bed in 128, bed 3. CHIEF COMPLAINT: Low-grade fevers x1 day duration. HISTORY OF PRESENT ILLNESS: A 66-year-old female with chronic obstructive lung disease, peripheral vascular disease, bilateral fem-pop, long time smoker, coronary artery disease, myocardial infarction, peripheral neuropathy, status post angioplasty of lower extremity and may have a low-grade fever and has erythema of the leg. Infectious Disease consultation requested. The patient states that she has no chest pain. Mild shortness of breath. No abdominal pain, diarrhea or constipation. No bright red blood per rectum. PAST MEDICAL HISTORY: Significant for COPD, peripheral vascular disease, coronary artery disease, peripheral neuropathy, myocardial infarction in 2002. PAST SURGICAL HISTORY: Significant for bilateral fem-pop 4 years ago, appendectomy, cholecystectomy in 1968, bilateral angiogram in 2003. ALLERGIES: THE PATIENT IS ALLERGIC TO ASPIRIN AND CARISOPRODOL. PHYSICAL EXAMINATION: VITAL SIGNS: Temperature is 98, T-max is 100.3, heart rate of 89, respiratory rate of 23, blood pressure is 117/70. HEENT: Unremarkable. NECK: Supple. LUNGS: Decreased breath sounds. HEART: Normal S1 and S2. ABDOMEN: Soft, nontender. EXTREMITIES: Examination of the right leg, there is erythema on the anterior aspect of the leg, mild tenderness. LABORATORY DATA: Reveals a white count of 13,200, hemoglobin of 11, platelets of 296. Chemistry reveals a BUN of 7, creatinine of 0.7. Urinalysis is noted. Microbiology is noted, pending. ASSESSMENT AND PLAN: A 66-year-old female with chronic obstructive lung disease, peripheral vascular disease, history of bilateral fem-pop with long time smoker, coronary artery disease, myocardial infarction, peripheral neuropathy, status post angioplasty, now with fever of 100.3, white count of 14,500 and tachypnea with sepsis with the right lower extremity cellulitis. We will treat the patient with vancomycin and meropenem pending rogers culture results, and we will order a procalcitonin, chest x-ray, blood, urine and sputum cultures, and we will make further recommendations upon availability of initial results. We will discontinue the clindamycin. No need for clindamycin. The patient does not have necrotizing fasciitis and the patient is on vancomycin, meropenem. Chad Simon MD
== END 2016-10-17 17:12 | DRG 254 ==
LOC: ED 15:31 → ERH 19:37 → 3RSO 20:56 → CCU 10-11 19:01
PROVIDERS: ADMIT Family Medicine; ATTEND Internal Medicine
PROC: B4201ZZ Computerized Tomography (CT Scan) of Abdominal Aorta using Low Osmolar Contrast (ICD-10-PCS; 2016-10-10)
PROC: B42H1ZZ Computerized Tomography (CT Scan) of Bilateral Lower Extremity Arteries using Low Osmolar Contrast (ICD-10-PCS; 2016-10-10)
PROC: B42H1ZZ Computerized Tomography (CT Scan) of Bilateral Lower Extremity Arteries using Low Osmolar Contrast (ICD-10-PCS; 2016-10-10)
PROC: 04HK33Z Insertion of Infusion Device into Right Femoral Artery, Percutaneous Approach (ICD-10-PCS; 2016-10-11)
PROC: 3E05317 Introduction of Other Thrombolytic into Peripheral Artery, Percutaneous Approach (ICD-10-PCS; 2016-10-11)
PROC: 047P34Z Dilation of Right Anterior Tibial Artery with Drug-eluting Intraluminal Device, Percutaneous Approach (ICD-10-PCS; principal; 2016-10-12)
PROC: 047K3ZZ Dilation of Right Femoral Artery, Percutaneous Approach (ICD-10-PCS; 2016-10-12)
PROC: 047M3ZZ Dilation of Right Popliteal Artery, Percutaneous Approach (ICD-10-PCS; 2016-10-12)
PROC: 3E05317 Introduction of Other Thrombolytic into Peripheral Artery, Percutaneous Approach (ICD-10-PCS; 2016-10-12)
PROC: B41FYZZ Fluoroscopy of Right Lower Extremity Arteries using Other Contrast (ICD-10-PCS; 2016-10-12)
DX: T82.898A Other specified complication of vascular prosthetic devices, implants and grafts, initial encounter (principal); G62.9 Polyneuropathy, unspecified; J44.9 Chronic obstructive pulmonary disease, unspecified; I73.9 Peripheral vascular disease, unspecified; I70.8 Atherosclerosis of other arteries; I10 Essential (primary) hypertension; I25.10 Atherosclerotic heart disease of native coronary artery without angina pectoris; E78.5 Hyperlipidemia, unspecified; F17.210 Nicotine dependence, cigarettes, uncomplicated; E87.6 Hypokalemia; E03.9 Hypothyroidism, unspecified; Y83.2 Surgical operation with anastomosis, bypass or graft as the cause of abnormal reaction of the patient, or of later complication, without mention of misadventure at the time of the procedure; I25.2 Old myocardial infarction; Z90.49 Acquired absence of other specified parts of digestive tract; Z88.6 Allergy status to analgesic agent; Z79.02 Long term (current) use of antithrombotics/antiplatelets

== ENCOUNTER 2016-10-17 17:16 | Inpatient (IN) | payer OTHER ==
[2016-10-17 18:45] VITALS: BMI 31.9
[2016-10-17] MEDS ORDERED: Heparin 25,000units in D5W 25,000 UNITS/250 ML BAG IV PRN (19:49)
[2016-10-17] MEDS ORDERED: Oxycodone/Acetaminophen 5/325 mg Tab PO STA (21:18)
[2016-10-17] MEDS ORDERED: Oxycodone/Acetaminophen 5/325 mg Tab PO PRN (21:19)
--- NOTE | 2016-10-17 22:24 | CP.PCM.HP ---
<Daniel Ruiz - Last Filed: 10/17/16 22:20> History of Present Illness - History of Present Illness History of Present Illness: Pt admitted on 10/10/16 with the following HPI: 66 year old female with a past medical history significant for CAD with CO in 1999, tobacco abuse, hypothyroidism, and s/p bilateral femoral-popliteal bypass in 2013 who presents with acutely worsening RLE pain that woke her up today at 6 AM in the morning. The pain is located in the right anterior montes and extends into the foot, namely digits 2-5. She states the affected area has associated paresthesias, has changed colors, blue, and that the pain is constant , and only subsides transiently when she hangs her (right) leg off the bed and dangles the foot. She denies any C/P, SOB, focal weakness/numbness in any other extremities, headache, palpitations, diarrhea, nausea, or vomiting. Important to note, she was admitted last for similar symptoms and found to have an arterial clot, but the patient left AMA. Today, she states she was suppose to see a Dr. Talbot tomorrow for evaluation of the RLE pain; however, given the severity of the pain, associated numbness, and pallor; she thought it would be flores to come in immediately to the [facility] ED for evaluation. During her hospital stay, Ms. Nicholson developed severe loss of function in her RLE, where doppler pulses, sensation, and motor were all lost. Dr. Talbot was able to perform a revascularization of her RLE. Ms. Nicholson then received a heparin drip for 3 days while awaiting confirmation of which oral anticoagulation to place her on. This will be decided while she is recovering in the ICU by Dr. Grider. In addition, patient was placed on Vanc, Merrem, and Clinda for her antibiotics by ID as well as seen by Dr. Beaulieu for her feet. Patient's pulses were obtained by Doppler, functionality returned to her RLE, and she was able to get out of bed and walk before she was deemed stable for discharge to TCU. Currently in TCU for monitoring with new oral anticoagulation as well as rehabilitation after reperfusion PSH: Bilateral femoral-popliteal bypass graft in 2013, cholecystectomy PMH: Dyslipidemia, PAD, tobacco abuse, hypothyroidism, peripheral neuropathy Allergies: Aspirin, Carisoprodol Social Hx: 75 pack year history of smoking, and still smoking, retired, lives with daughter and grandson. Hospitalization: Recently d/c from [facility] floors for reperfusion of RLE Fam Hx: Non-contributory Meds: Reviewed, please see MAR ROS: Constitutional: pt denies fever, chills, generalized weakness ENT: pt denies dysphagia, otalgia, hearing deficit, rhinorrhea Eyes: pt denies loss of vision, diplopia, trauma, increased pressure MSK: +See HPI Cardio: pt denies sob, heart murmur, cp Pulm: pt denies cough, hemoptysis, wheeze GI: pt denies loss of appetite, abdominal pain, constipation, melena, n/v/d : pt denies burning on urination, urinary frequency, hematuria, urinary urgency Neuro: pt denies paresis, paresthesia, dizziness, vega, numbness, tingling Derm: pt denies acute skin changes, lesions, nail changes Endo: pt denies intolerance to heat/cold, diaphoresis, night sweats, polydipsia Psych: pt denies anxiety, depression, mood changes Present on Admission - Present on Admission Any Indicators Present on Admission: No Past Patient History - Infectious Disease Hx of Infectious Diseases: None - Past Medical History & Family History Past Medical History?: Yes - Past Social History Smoking Status: Heavy Smoker > 10 Cigarettes Daily - CARDIAC Hx Cardiac Disorders: Yes Hx Hypertension: Yes - PULMONARY Hx Chronic Obstructive Pulmonary Disease (COPD): Yes - NEUROLOGICAL Hx Neurological Disorder: No - HEENT Hx HEENT Problems: No - RENAL Hx Chronic Kidney Disease: No - ENDOCRINE/METABOLIC Hx Hypothyroidism: Yes - HEMATOLOGICAL/ONCOLOGICAL Hx Blood Disorders: No - INTEGUMENTARY Hx Dermatological Problems: No - MUSCULOSKELETAL/RHEUMATOLOGICAL Hx Falls: No - GASTROINTESTINAL Hx Gastrointestinal Disorders: No - GENITOURINARY/GYNECOLOGICAL Hx Reproductive Disorders: No - PSYCHIATRIC Hx Psychophysiologic Disorder: No Hx Depression: No Hx Emotional Abuse: No Hx Physical Abuse: No Hx Substance Use: No - SURGICAL HISTORY Hx Angiogram: Yes (RIGHT 2012; BIN 10/02/13; LEFT 01/04/14) Hx Appendectomy: Yes Hx Cardiac Catheterization: Yes Hx Cholecystectomy: Yes (1968) Other/Comment: R femoral pop bypass - ANESTHESIA Hx Anesthesia: Yes Hx Anesthesia Reactions: No Hx Malignant Hyperthermia: No Meds Allergies/Adverse Reactions: Allergies Allergy/AdvReac Type Severity Reaction Status Date / Time carisoprodol Allergy RASH Verified 11/11/16 13:59 [From Soma Compound] Physical Exam - Additional Findings Additional findings: Phys Exam: VS as below Constitutional: a&o x 4, nad Head and Neck: neck supple, no jvd, trachea midline, carotid midline, no cervical/head mass Eyes: jon, nonicteric sclera, eom intact ENT: auditory acuity grossly intact, throat not congested, no nasal deformity Cardio: rrr, no m/r/g, no carotid bruit, nml s1, s2 Pulm: no accessory muscle use, equal nml breath sounds bilaterally, ctab Abd: s/nt/nd, nbs x 4 q, no palpable masses Derm: no rashes, no ulcers, no lesions Extr: bilateral femoral pulses palpable, distal pulses now palpable b/l. Bilateral LEs cool but right is no longer cold. capillary refill time 3 secs on left, no longer severely delayed on right. no calf tenderness to compression. patient able to freely move LLE without pain; Not able to wiggle right toes yet. Right foot no longer discolored. Neuro: cn II-XII grossly intact, ue and le 5/5 muscle strength bilaterally, no los ue, le bilaterally and core Results - Vital Signs Recent Vital Signs: Last Vital Signs Temp 98.5 F 10/17/16 18:45 Pulse 74 10/17/16 18:45 Resp 16 10/17/16 18:45 BP 138/73 10/17/16 18:45 Pulse Ox Assessment & Plan - Assessment and Plan (Free Text) Assessment: 66 yo F with vasculopathy with bilateral femoral popliteal grafts, 78 pack year history of smoking, CAD with history of CO in 1999, who presents with RLE pain. Patient was scheduled to see Dr. Jeremias Talbot tomorrow, but due to the severity of symptoms, color changes, numbness, and pallor in the RLE, she came to ED. Patient started on heparin drip, vascular surgery and interventional radiology consulted. Plan: 1) Right LE pain secondary to PVD - See details of CT above - Vascular surgery: Dr. Jeremias Talbot - Interventional Radiology consulted: Dr. Jeremias Talbot. Took pt for ECOS - revascularized yesterday, 10/13. Started on Heparin drip Will decide anticoagulation - last note I saw was for a direct thrombin inhibitor, most likely Pradexa - Patient is on Plavix - General Surg consulted: Dr. Parkinson Ischemia appears to be chronic in nature, not acute LE fed by collaterals No acute surgical intervention at this time - Patient is NPO, except for medications - Monitor distal pulses q4h - Vitals q8h - Heparin drip - PT/PTT per protocol - Analgesia with Morphine 2 mg IVP q4h PRN, Percocet PRN, Tylenol PRN - Atorvastatin 20 mg PO DIN - C/W home Cilostazol 100 mg PO BID - Holding/stopped home NSAIDs - Podiatry c/s: Continue Anti-coagulation as per Vascular Physical therapy consulted; Right drop foot - New swelling and pain in RLE Doppler U/s ESR Abx: one dose of vanc + clinda ID C/s: [place]os[place] Lasix 2) CAD - C/W Plavix 75 mg PO daily - C/W Atorvastatin as detailed above, dual benefit in this patient - C/W Losartan 50 mg PO daily 3) Peripheral neuropathy, most likely secondary to Peripheral Vascular Disease - C/W Neurontin 600 mg BID 4) Hypothyroidism C/W Levothyroxine 100 mcg PO daily 5) GI prophylaxis: Protonix 40 mg ACB 6) Hypokalemia - Initial Potassium of 3.3 - 40 mEq given PO, will continue to monitor with daily CMP <Ryan Schmitt - Last Filed: 12/03/16 16:38> Results - Vital Signs Recent Vital Signs: Last Vital Signs Temp 97.9 F 10/22/16 10:27 Pulse 92 H 10/22/16 10:38 Resp 20 10/22/16 10:27 BP 119/69 10/22/16 10:38 Pulse Ox 99 10/22/16 10:27 - Labs Result Diagrams: 10/22/16 06:30 10/22/16 06:30 Attending/Attestation - Attestation I have personally seen and examined this patient.: Yes I have fully participated in the care of the patient.: Yes I have reviewed all pertinent clinical information: Yes Notes (Text): 12/03/16 16:38 Medical record note made by the resident after discussion with my direction and input after the patient was personally seen and examined by me. I have reviewed the chart and agree that the record accurately reflects by personal performance of the history, physical exam, data review, and medical decision-making, in the course for the patient. I have also personally directed the plan of care.
[2016-10-17] MEDS: Cilostazol 100 mg Tab UD PO SCH (22:40)
[2016-10-18] MEDS: Pantoprazole 40 mg EC Tab PO SCH (05:15)
[2016-10-18] MEDS: Levothyroxine 100 MCG TAB PO SCH (05:15)
[2016-10-18 07:11] LABS: BASO # 0.04 K/mm3 (0.0-2.0); BASO % 0.3 % (0.0-3.0); EOS % 7.9 % (1.5-5.0); GRAN # 7.98 (1.4-6.5); LYMPH # 2.2 (1.2-3.4); LYMPH % 17.8 % (22.0-35.0); MEAN CELL VOLUME 93.2 fl (80.0-105.0); MEAN CORPUSCULAR HEMOGLOBIN 30.8 pg (25.0-35.0); MEAN PLATELET VOLUME 9.1 fl (7.0-11.0); RED CELL DISTRIBUTION WIDTH 13.6 % (11.5-14.5); WHITE BLOOD COUNT 12.1 10^3/ul (4.5-11.0)
[2016-10-18 07:23] LABS: ALKALINE PHOSPHATASE 81 U/L (38-133); ALT/SGPT 59 U/L (7-56); AST/SGOT 74 U/L (15-39); BILIRUBIN,TOTAL 0.7 mg/dL (0.2-1.3); BLOOD UREA NITROGEN 6 mg/dL (7-21); CALCIUM 8.8 mg/dL (8.4-10.5); CARBON DIOXIDE 30 mmol/L (21-33); CHLORIDE 100 mmol/L (95-110); GFR AFRICAN-AMERICAN > 60; GLUCOSE,RANDOM 106 mg/dL (70-110); POTASSIUM 3.1 mmol/L (3.6-5.0); SODIUM 136 mmol/L (132-148); TOTAL PROTEIN 6.5 g/dL (5.8-8.3)
[2016-10-18 07:29] LABS: INR 1.06 (0.93-1.08); PARTIAL THROMBOPLASTIN TIME 48.3 Seconds (23.7-30.8)
[2016-10-18] MEDS ORDERED: Levothyroxine 100 MCG TAB PO SCH (07:30)
[2016-10-18] MEDS: Cilostazol 100 mg Tab UD PO SCH ×2 (09:06→18:13)
[2016-10-18] MEDS ORDERED: Non Formulary Medication (Celecoxib [Celebrex] 200 MG) PO SCH (10:00)
[2016-10-18] MEDS ORDERED: Potassium Chloride 20 mEq ER Tab PO SCH (10:00)
[2016-10-18] MEDS ORDERED: NABUMETONE 500 MG PO SCH (10:00)
--- NOTE | 2016-10-18 10:05 | CP.PCM.PN ---
Addendum entered and electronically signed by Geovanny Landrum DO 10/18/16 18:01: Patient was taking off heparin gtt. Patient started on eliquis as per cardiology. Original Note: <Geovanny Landrum - Last Filed: 10/18/16 17:57> Subjective - Date & Time of Evaluation Date of Evaluation: 10/18/16 Time of Evaluation: 09:45 - Subjective Subjective: Patient seen and examined at bedside in TCU. No acute events overnight. Patient states her right lower extremity has improved drastically in terms of sensation and mobility when compared to admission date. Admits to single episode of sharp right sided back pain at the T8-T9 level which was non radiating and resolved without acute intervention. Denies f/c/cp/sob/abdominal pain/n/v/diarrhea/ constipation/urinary symptoms. Objective - Vital Signs/Intake and Output Vital Signs (last 24 hours): Temp Pulse Resp BP Pulse Ox 98.5 F 69 16 124/60 10/17/16 18:45 10/18/16 09:05 10/17/16 18:45 10/18/16 09:05 - Medications Medications: Current Medications Atorvastatin Calcium (Lipitor) 20 mg PO DIN FAWAD Cilostazol (Pletal) 100 mg PO BID [facility] Last Admin: 10/18/16 09:06 Dose: 100 mg Clopidogrel Bisulfate (Plavix) 75 mg PO 0800 [facility] Last Admin: 10/18/16 08:52 Dose: 75 mg Gabapentin (Neurontin) 600 mg PO BID [facility] PRN Reason: Protocol Last Admin: 10/18/16 09:06 Dose: 300 mg Hydralazine HCl (Apresoline) 10 mg IVP Q6 PRN PRN Reason: HTN Heparin Sodium/Dextrose (Heparin 25,000 Units/250ml In D5w) 25,000 units in 250 mls @ 16.329 mls/hr IV .[id number] PRN; Protocol PRN Reason: ADJUST RATE PER PROTOCOL Last Admin: 10/17/16 20:59 Dose: 15.395 mls/hr Levothyroxine Sodium (Synthroid) 100 mcg PO 0600 [facility] Last Admin: 10/18/16 05:15 Dose: 100 mcg Lorazepam (Ativan) 2 mg IVP Q6H PRN; Protocol PRN Reason: Anxiety Losartan Potassium (Cozaar) 50 mg PO DAILY [facility] Last Admin: 10/18/16 09:05 Dose: 50 mg Nicotine (Nicoderm Cq) 1 patch TD DAILY [facility] Last Admin: 10/18/16 09:07 Dose: 1 patch Non-Formulary Medication (Nabumetone [Relafen]) 500 mg PO BID [facility] Ondansetron HCl (Zofran Inj) 4 mg IVP Q4H PRN PRN Reason: Nausea/Vomiting Oxycodone/Acetaminophen (Percocet 5/325 Mg Tab) 1 tab PO Q6H PRN PRN Reason: Pain, moderate (4-7) Stop: 10/20/16 22:05 Pantoprazole Sodium (Protonix Ec Tab) 40 mg PO 0600 [facility] Last Admin: 10/18/16 05:15 Dose: 40 mg Potassium Chloride (K-Dur 20 Meq Er Tab) 20 meq PO BID [facility] Last Admin: 10/18/16 09:05 Dose: 20 meq - Labs Labs: 10/18/16 06:30 10/18/16 06:30 PT 11.5 Seconds (9.9-11.8) 10/18/16 06:30 INR 1.06 (0.93-1.08) 10/18/16 06:30 APTT 48.3 Seconds (23.7-30.8) H 10/18/16 06:30 - Additional Findings Additional findings: Constitutional: a&o x 4, nad Head and Neck: neck supple, no jvd, trachea midline, carotid midline, no cervical/head mass Eyes: jon, nonicteric sclera, eom intact ENT: auditory acuity grossly intact, throat not congested, no nasal deformity Cardio: rrr, no m/r/g, no carotid bruit, nml s1, s2 Pulm: no accessory muscle use, equal nml breath sounds bilaterally, ctab Abd: s/nt/nd, nbs x 4 q, no palpable masses Derm: no rashes, no ulcers, no lesions Extr: bilateral femoral pulses palpable, distal pulses now palpable b/l. Bilateral LEs cool but right is no longer cold. capillary refill time 3 secs on left, no longer severely delayed on right. no calf tenderness to compression. patient able to freely move LLE without pain; Not able to wiggle right toes yet. Right foot no longer discolored. Neuro: cn II-XII grossly intact, ue and le 5/5 muscle strength bilaterally, no los ue, le bilaterally and core Skin- ecchymosis left inguinal region near catheter site Assessment and Plan - Assessment and Plan (Free Text) Assessment: 66 yo F with vasculopathy with bilateral femoral popliteal grafts, 78 pack year history of smoking, CAD with history of CT in 1999, who was transferred to the TCU after treatment of her RLE PVD s/p ECOS. Right LE pain secondary to PVD - patient is s/p r ECOS via interventional radiology - patient is on Heparin drip; PT/PTT as per protocol - consider stopping drip and starting patient on Pradaxa in coming day - Patient is on Plavix - Analgesia with Percocet PRN, Tylenol PRN - Atorvastatin 20 mg PO DIN - C/W home Cilostazol 100 mg PO BID Transaminitis - likely reactive to recent ischemic event - follow cmp - continue statin Leukocytosis - Rule out Sepsis, given 1 round of vanco, merem, and clinda, follow ID recs - blood cultures no growth in 1 day - Holding/stopped home NSAIDs CAD - C/W Plavix 75 mg PO daily - C/W Atorvastatin as detailed above, dual benefit in this patient - C/W Losartan 50 mg PO daily Hypertension - c/w home losartan - chcf goal is 140/90 Peripheral neuropathy, most likely secondary to Peripheral Vascular Disease - C/W Neurontin 600 mg BID - consider restarting pletal Hypothyroidism - C/W Levothyroxine 100 mcg PO daily Hypokalemia - Potassium 3.1 - increase regiment to 40 PO BID - order Mag for AM - replete, will continue to monitor with daily CMP GI prophylaxis Protonix Discharge planning - continue PT outpatient after TCU discharge - follow up outpatient with Dr. Jeremias Talbot and PMD - advised to continue smoking cessation <Ryan Schmitt - Last Filed: 12/03/16 16:41> Objective - Vital Signs/Intake and Output Vital Signs (last 24 hours): Temp Pulse Resp BP Pulse Ox 97.9 F 92 H 20 119/69 99 10/22/16 10:27 10/22/16 10:38 10/22/16 10:27 10/22/16 10:38 10/22/16 10:27 - Labs Labs: 10/22/16 06:30 10/22/16 06:30 PT 11.7 Seconds (9.9-11.8) 10/22/16 06:30 INR 1.08 (0.93-1.08) 10/22/16 06:30 APTT 48.3 Seconds (23.7-30.8) H 10/18/16 06:30 Attending/Attestation - Attestation I have personally seen and examined this patient.: Yes I have fully participated in the care of the patient.: Yes I have reviewed all pertinent clinical information, including history, physical exam and plan: Yes Notes (Text): 12/03/16 16:41 Medical record note made by the resident after discussion with my direction and input after the patient was personally seen and examined by me. I have reviewed the chart and agree that the record accurately reflects by personal performance of the history, physical exam, data review, and medical decision-making, in the course for the patient. I have also personally directed the plan of care.
--- NOTE | 2016-10-18 12:14 | CP.PCM.CON ---
<Diallo Reid - Last Filed: 10/18/16 14:42> History of Present Illness - History of Present Illness History of Present Illness: 66 year old female patient with PMHx of CAD with [place] (1999), tobacco abuse, s/p Angioplaty / thrombolysis of right lower extremity (DOS 10/12/16) was seen at [facility] this afternoon. Patient came to [facility] ED on 10/10/2016 with pain to the bottom of her right foot with associated numbness and tingling to her toes. She is 8 days s/p Angioplaty / thrombolysis of right lower extremity and feels much better today after the surgery. Patient resting comfortably in bed with no acute distress. Pain to right leg. Patient denies of any N/V/F/C or SOB today Past Patient History - Infectious Disease Hx of Infectious Diseases: None - Past Medical History & Family History Past Medical History?: Yes - Past Social History Smoking Status: Heavy Smoker > 10 Cigarettes Daily - CARDIAC Hx Cardiac Disorders: Yes Hx Hypertension: Yes - PULMONARY Hx Chronic Obstructive Pulmonary Disease (COPD): Yes - NEUROLOGICAL Hx Neurological Disorder: No - HEENT Hx HEENT Problems: No - RENAL Hx Chronic Kidney Disease: No - ENDOCRINE/METABOLIC Hx Hypothyroidism: Yes - HEMATOLOGICAL/ONCOLOGICAL Hx Blood Disorders: No - INTEGUMENTARY Hx Dermatological Problems: No - MUSCULOSKELETAL/RHEUMATOLOGICAL Hx Falls: No - GASTROINTESTINAL Hx Gastrointestinal Disorders: No - GENITOURINARY/GYNECOLOGICAL Hx Reproductive Disorders: No - PSYCHIATRIC Hx Psychophysiologic Disorder: No Hx Depression: No Hx Emotional Abuse: No Hx Physical Abuse: No Hx Substance Use: No - SURGICAL HISTORY Hx Angiogram: Yes (RIGHT 2012; BIN 10/02/13; LEFT 01/04/14) Hx Appendectomy: Yes Hx Cardiac Catheterization: Yes Hx Cholecystectomy: Yes (1968) Other/Comment: R femoral pop bypass - ANESTHESIA Hx Anesthesia: Yes Hx Anesthesia Reactions: No Hx Malignant Hyperthermia: No Meds Allergies/Adverse Reactions: Allergies Allergy/AdvReac Type Severity Reaction Status Date / Time aspirin [From Soma Compound] Allergy RASH Verified 10/17/16 21:08 carisoprodol Allergy RASH Verified 10/17/16 21:08 [From Soma Compound] - Medications Medications: Current Medications Apixaban (Eliquis) 5 mg PO BID [facility] PRN Reason: Protocol Last Admin: 10/18/16 11:23 Dose: 5 mg Atorvastatin Calcium (Lipitor) 20 mg PO DIN [facility] Cilostazol (Pletal) 100 mg PO BID [facility] Last Admin: 10/18/16 09:06 Dose: 100 mg Clopidogrel Bisulfate (Plavix) 75 mg PO 0800 [facility] Last Admin: 10/18/16 08:52 Dose: 75 mg Gabapentin (Neurontin) 600 mg PO BID [facility] PRN Reason: Protocol Last Admin: 10/18/16 09:06 Dose: 300 mg Hydralazine HCl (Apresoline) 10 mg IVP Q6 PRN PRN Reason: HTN Levothyroxine Sodium (Synthroid) 100 mcg PO 0600 [facility] Last Admin: 10/18/16 05:15 Dose: 100 mcg Lorazepam (Ativan) 2 mg IVP Q6H PRN; Protocol PRN Reason: Anxiety Losartan Potassium (Cozaar) 50 mg PO DAILY [facility] Last Admin: 10/18/16 09:05 Dose: 50 mg Nicotine (Nicoderm Cq) 1 patch TD DAILY [facility] Last Admin: 10/18/16 09:07 Dose: 1 patch Non-Formulary Medication (Nabumetone [Relafen]) 500 mg PO BID [facility] Ondansetron HCl (Zofran Inj) 4 mg IVP Q4H PRN PRN Reason: Nausea/Vomiting Oxycodone/Acetaminophen (Percocet 5/325 Mg Tab) 1 tab PO Q6H PRN PRN Reason: Pain, moderate (4-7) Stop: 10/20/16 22:05 Pantoprazole Sodium (Protonix Ec Tab) 40 mg PO 0600 [facility] Last Admin: 10/18/16 05:15 Dose: 40 mg Potassium Chloride (K-Dur 20 Meq Er Tab) 20 meq PO BID [facility] Last Admin: 10/18/16 09:05 Dose: 20 meq Physical Exam - Constitutional Appears: Well - Head Exam Head Exam: ATRAUMATIC - Extremities Exam Additional comments: Bilateral lower extremities exam DERM Right: No open wound is noted. normal skin color. No erythema is noted. No drainage is noted. No sign of acute infection is noted. Left: No open wound is noted. No erythema is noted. No drainage is noted. No sign of acute infection is noted. VASC: Right: Capillary refill time is normal less than 3 seconds to all digits. 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 Skin warm to touch ORTHO: Slight atrophy noted to the musculature of the right lower extremity as compared to that of the Left. Pain on palpation to joints distal to right ankle. No pain is induced for left lower extremity. Drop foot is noted to right lower extremity with plantarflexed foot at the ankle. Decreased Passive and active dorsiflexion is noted at the Right ankle secondary to guarding. Results - Vital Signs Recent Vital Signs: Last Vital Signs Temp 98.3 F 10/18/16 10:05 Pulse 69 10/18/16 10:05 Resp 18 10/18/16 10:05 BP 124/60 10/18/16 10:05 Pulse Ox 93 L 10/18/16 10:05 - Labs Result Diagrams: 10/18/16 06:30 10/18/16 06:30 Labs: Laboratory Results - last 24 hr 10/18/16 10/18/16 10/18/16 06:30 06:30 06:30 WBC 12.1 H RBC 3.54 Hgb 10.9 L Hct 33.0 L MCV 93.2 MCH 30.8 MCHC 33.0 RDW 13.6 Plt Count 322 MPV 9.1 Gran % 66.0 Lymph % (Auto) 17.8 L [place] % (Auto) 8.0 H Eos % (Auto) 7.9 H Baso % (Auto) 0.3 Gran # 7.98 H Lymph # 2.2 [place] # 1.0 H Eos # 1.0 H Baso # 0.04 PT 11.5 INR 1.06 APTT 48.3 H Sodium 136 Potassium 3.1 L Chloride 100 Carbon Dioxide 30 Anion Gap 9 L BUN 6 L Creatinine 0.6 Est GFR ( Amer) > 60 Est GFR (Non-Af Amer) > 60 Random Glucose 106 Calcium 8.8 Total Bilirubin 0.7 AST 74 H ALT 59 H Alkaline Phosphatase 81 Total Protein 6.5 Albumin 3.2 Globulin 3.3 Albumin/Globulin Ratio 1.0 L Assessment & Plan - Assessment and Plan (Free Text) Assessment: 66 yo female patient with PAD: right lower extremity ischemia, s/p angioplasty and thrombolysis of Right Anterior Tibial artery and femoral-popliteal bypass graft Plan: Patient was seen, evaluated at the bedside TCU this afternoon Labs and vitals reviewed Continue Anti-coagulation as per Vascular Continue physical therapy; Right drop foot Podiatry will continue to follow in-house <Renuka Beaulieu - Last Filed: 10/24/16 19:42> Results - Vital Signs Recent Vital Signs: Last Vital Signs Temp 97.9 F 10/22/16 10:27 Pulse 92 H 10/22/16 10:38 Resp 20 10/22/16 10:27 BP 119/69 10/22/16 10:38 Pulse Ox 99 10/22/16 10:27 - Labs Result Diagrams: 10/22/16 06:30 10/22/16 06:30 Attending/Attestation - Attestation I have personally seen and examined this patient.: Yes I have fully participated in the care of the patient.: Yes I have reviewed all pertinent clinical information: Yes
[2016-10-18] MEDS: Vancomycin 1gm in NS 250ml 1 GM/250 ML BAG IVPB SCH (18:11)
[2016-10-18] MEDS: Potassium Chloride 20 mEq ER Tab PO SCH (18:12)
[2016-10-18] MEDS: Naproxen 550 mg Tab PO SCH (18:12)
[2016-10-18] MEDS: Oxycodone/Acetaminophen 5/325 mg Tab PO PRN (18:24)
[2016-10-18] MEDS: Meropenem 1g/NS 100mL IVPB 1 GM/100 ML PIGGYBACK IVPB SCH (21:28)
--- NOTE | 2016-10-18 21:58 | CON ---
CONSULT DATE: 10/18/2016 HISTORY OF PRESENT ILLNESS: The patient is a 66-year-old woman who presented with an acute ischemic right lower extremity and underwent successful reperfusion with thrombolysis. The patient is status post bilateral fem-pop bypasses in the past. She is also status post anterior wall myocardial infarction in the past. 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 She continues to smoke. In addition, the patient suffers from hypercholesterolemia and COPD. SOCIAL HISTORY: She is an active smoker REVIEW OF SYSTEMS: Reviewed in detail. No cardiac symptomatology is noted. No chest pain. No shortness of breath. PHYSICAL EXAMINATION VITAL SIGNS: Blood pressure is 124/60, heart rate is in the 60s. NECK: Negative JVD. CARDIOPULMONARY: Heart reveal S1 and S2. LUNGS: Without rales. EXTREMITIES: Decreased pulses bilaterally in the lower extremities. IMAGING: EKG shows normal sinus rhythm with poor R-wave progression. LABORATORY: The potassium is 3.1 with BUN and creatinine that are unremarkable. Hemoglobin is 10.9. IMPRESSION: 1. Status post acute thrombosis of the bypass graft in the right lower extremity. 2. Status post successful thrombolysis. 3. Stable angina. 4. Old anterior wall myocardial infarction. 5. Severe chronic obstructive pulmonary disease. 6. Noncompliance with medications. 7. Active smoker. Given these findings, I have discussed with the patient about the dangers and severe consequences of her continued smoking. We will start the patient on Eliquis as well as Plavix. In the near future, the patient will need a stress test, which can be done electively. In addition, we will add a statin therapy. Jeremias Grider MD
--- NOTE | 2016-10-19 01:37 | CON ---
DATE: 10/18/2016 LOCATION: The patient is seen in transitional care, room #302. CHIEF COMPLAINT: Weakness for several days. HISTORY OF PRESENT ILLNESS: The patient is a 66-year-old female with peripheral vascular disease; bilateral fem-pop in the past; was a long time smoker; chronic obstructive lung disease; myocardial infarction; peripheral neuropathy, status post angioplasty of the lower extremity, had low-grade fevers and erythema of the leg. Infectious disease consultation requested and transitional care because the patient was seen in the CCU. The patient denied any fevers or any chills. She states that her leg is much improved and pain is resolving. No abdominal pain, diarrhea, or constipation. PAST MEDICAL HISTORY: Significant for COPD, severe peripheral vascular disease, coronary artery disease, peripheral neuropathy, and myocardial infarction. PAST SURGICAL HISTORY: Significant for bilateral fem-pop 4 years ago, the patient also with appendectomy, cholecystectomy in 1968, and bilateral angio in 2003. ALLERGIES: THE PATIENT IS ALLERGIC TO ASPIRIN AND CARISOPRODOL. PHYSICAL EXAMINATION: GENERAL: The patient is in bed, in no acute distress. VITAL SIGNS: Temperature of 98, blood pressure is 120/70, and respiratory rate is 16. HEENT: Unremarkable. NECK: Supple. LUNGS: Decreased breath sounds. HEART: Normal S1 and S2. ABDOMEN: Soft, nontender. EXTREMITIES: Examinations of the leg, the erythema is much improved. LABORATORY DATA: Reveals white count of 12,000, hemoglobin of 10, and platelets of 322. Chemistry reveals a BUN of 6, creatinine of 0.6, procalcitonin is 0.5. LFTs are mildly elevated. Blood cultures, no growth. Urine cultures, no growth. MRSA screen is negative. ASSESSMENT AND PLAN: A 66-year-old female with chronic obstructive lung disease; severe peripheral vascular disease; history of bilateral femoral-popliteal; long time smoker; coronary artery disease; myocardial infarction; peripheral neuropathy, status post angioplasty with low-grade fevers; leukocytosis; tachycardia and sepsis with right lower leg, extremity cellulitis. The patient is on vancomycin and meropenem. We will follow the leg, thus far the cultures are negative, we will give a short course of antibiotics. We will follow a WBC count. We will follow closely with you. Chad Simon MD [facility] # [id number]
[2016-10-19] MEDS: Vancomycin 1gm in NS 250ml 1 GM/250 ML BAG IVPB SCH (04:07)
[2016-10-19] MEDS: Levothyroxine 100 MCG TAB PO SCH (06:26)
[2016-10-19] MEDS: Pantoprazole 40 mg EC Tab PO SCH (06:26)
[2016-10-19] MEDS: Meropenem 1g/NS 100mL IVPB 1 GM/100 ML PIGGYBACK IVPB SCH ×2 (06:27→18:13)
[2016-10-19 07:17] LABS: BASO # 0.05 K/mm3 (0.0-2.0); BASO % 0.4 % (0.0-3.0); EOS % 9.2 % (1.5-5.0); GRAN # 7.43 (1.4-6.5); GRAN % 65.8 % (50.0-68.0); HEMATOCRIT 32.4 % (36.0-48.0); LYMPH % 17.2 % (22.0-35.0); MEAN CELL VOLUME 93.9 fl (80.0-105.0); MEAN CORPUSCULAR HEMOGLOBIN 31.3 pg (25.0-35.0); MEAN CORPUSCULAR HGB CONC 33.3 g/dl (31.0-37.0); MEAN PLATELET VOLUME 8.9 fl (7.0-11.0); MONO # 0.8 (0.1-0.6); MONO % 7.4 % (1.0-6.0); RED CELL DISTRIBUTION WIDTH 13.8 % (11.5-14.5); WHITE BLOOD COUNT 11.3 10^3/ul (4.5-11.0)
[2016-10-19 07:27] LABS: INR 1.08 (0.93-1.08)
[2016-10-19] MEDS: Magnesium Sulfate 1 gm in D5W 1 GM/100 ML BAG IVPB ONE ×2 (08:40→09:08)
[2016-10-19] MEDS: Cilostazol 100 mg Tab UD PO SCH ×2 (10:00→21:28)
[2016-10-19] MEDS: Potassium Chloride 20 mEq ER Tab PO SCH ×2 (10:00→18:07)
[2016-10-19] MEDS ORDERED: Magnesium Oxide 400 mg Tab UD PO ONE (10:00)
[2016-10-19] MEDS: Naproxen 550 mg Tab PO SCH ×2 (10:56→18:07)
--- NOTE | 2016-10-19 13:55 | CP.PCM.PN ---
<Diallo Reid - Last Filed: 10/19/16 13:51> Subjective - Date & Time of Evaluation Date of Evaluation: 10/19/16 Time of Evaluation: 13:51 - Subjective Subjective: 66 year old female patient with PMHx of CAD with [place] (1999), tobacco abuse, s/p Angioplaty / thrombolysis of right lower extremity (DOS 10/12/16) was seen at bedside [facility] this morning. Patient resting comfortably in bed with no acute distress. Pain to right leg improved. Patient denies of any N/V/F/C or SOB today Patient states that she has been working with physical therapy and is slowly regaining ability to walk Objective - Vital Signs/Intake and Output Vital Signs (last 24 hours): Temp Pulse Resp BP Pulse Ox 98.6 F 66 18 121/57 L 90 L 10/18/16 16:00 10/19/16 10:58 10/18/16 16:00 10/19/16 10:58 10/18/16 16:00 - Medications Medications: Current Medications Apixaban (Eliquis) 5 mg PO BID [facility] PRN Reason: Protocol Last Admin: 10/19/16 10:56 Dose: 5 mg Atorvastatin Calcium (Lipitor) 20 mg PO DIN [facility] Last Admin: 10/18/16 18:11 Dose: 20 mg Cilostazol (Pletal) 100 mg PO 1000,2200 [facility] Clopidogrel Bisulfate (Plavix) 75 mg PO 0800 [facility] Last Admin: 10/19/16 08:40 Dose: 75 mg Gabapentin (Neurontin) 300 mg PO BID [facility] PRN Reason: Protocol Last Admin: 10/19/16 10:56 Dose: 300 mg Hydralazine HCl (Apresoline) 10 mg IVP Q6 PRN PRN Reason: HTN Meropenem 1g/NS 100mL IVPB (Meropenem 1g/Ns 100ml Ivpb) 1 gm in 100 mls @ 100 mls/hr IVPB Q8 [facility] PRN Reason: Protocol Stop: 10/27/16 22:01 Last Admin: 10/19/16 06:27 Dose: 100 mls/hr Vancomycin HCl (Vancomycin 1gm) 1 gm in 250 mls @ 167 mls/hr IVPB 0600,1800 [facility] PRN Reason: Protocol Stop: 10/28/16 18:01 Levothyroxine Sodium (Synthroid) 100 mcg PO 0600 [facility] Last Admin: 10/19/16 06:26 Dose: 100 mcg Lorazepam (Ativan) 2 mg IVP Q6H PRN; Protocol PRN Reason: Anxiety Losartan Potassium (Cozaar) 50 mg PO DAILY [facility] Last Admin: 10/19/16 10:58 Dose: 50 mg Naproxen (Anaprox Ds) 550 mg PO BID [facility] Last Admin: 10/19/16 10:56 Dose: 550 mg Nicotine (Nicoderm Cq) 1 patch TD DAILY [facility] Last Admin: 10/19/16 10:56 Dose: 1 patch Ondansetron HCl (Zofran Inj) 4 mg IVP Q4H PRN PRN Reason: Nausea/Vomiting Oxycodone/Acetaminophen (Percocet 5/325 Mg Tab) 1 tab PO Q6H PRN PRN Reason: Pain, moderate (4-7) Stop: 10/20/16 22:05 Last Admin: 10/18/16 18:24 Dose: 1 tab Pantoprazole Sodium (Protonix Ec Tab) 40 mg PO 0600 [facility] Last Admin: 10/19/16 06:26 Dose: 40 mg Potassium Chloride (K-Dur 20 Meq Er Tab) 40 meq PO 0730,1800 [facility] - Labs Labs: 10/19/16 06:10 10/18/16 06:30 PT 11.7 Seconds (9.9-11.8) 10/19/16 06:10 INR 1.08 (0.93-1.08) 10/19/16 06:10 APTT 48.3 Seconds (23.7-30.8) H 10/18/16 06:30 - Constitutional Appears: Well, Non-toxic, No Acute Distress - Extremities Exam Additional comments: Bilateral lower extremities exam DERM Right: No open wound is noted. normal skin color. No erythema is noted. No drainage is noted. No sign of acute infection is noted. Left: No open wound is noted. No erythema is noted. No drainage is noted. No sign of acute infection is noted. VASC: Right: Capillary refill time is normal less than 3 seconds to all digits. Skin warm to touch Left: OUTSOLE SCHEDULER for Left is <3 seconds to all digits. Skin warm to touch ORTHO: Slight atrophy noted to the musculature of the right lower extremity as compared to that of the Left. Pain on palpation to joints distal to right ankle. No pain is induced for left lower extremity. Drop foot is noted to right lower extremity with plantarflexed foot at the ankle. Decreased Passive and active dorsiflexion is noted at the Right ankle secondary to guarding. - Neurological Exam Neurological Exam: Alert, Awake, Oriented x3 - Psychiatric Exam Psychiatric exam: Normal Affect, Normal Mood - Skin Skin Exam: Normal Color, Warm Assessment and Plan - Assessment and Plan (Free Text) Assessment: 66 yo female patient with PAD: right lower extremity ischemia, s/p angioplasty and thrombolysis of Right Anterior Tibial artery and femoral-popliteal bypass graft Plan: Patient was seen, evaluated at the bedside TCU this morning Labs and vitals reviewed Continue Anti-coagulation as per Vascular Continue physical therapy; Right drop foot Podiatry will continue to follow in-house <Stephon Franco - Last Filed: 10/21/16 08:03> Objective - Vital Signs/Intake and Output Vital Signs (last 24 hours): Temp Pulse Resp BP Pulse Ox 97.9 F 69 18 137/75 95 10/20/16 16:54 10/20/16 16:54 10/20/16 16:54 10/20/16 16:54 10/20/16 16:54 - Medications Medications: Current Medications Apixaban (Eliquis) 5 mg PO BID [facility] PRN Reason: Protocol Last Admin: 10/20/16 17:16 Dose: 5 mg Atorvastatin Calcium (Lipitor) 20 mg PO DIN [facility] Last Admin: 10/20/16 17:15 Dose: 20 mg Cefpodoxime Proxetil (Vantin) 200 mg PO Q12 [facility] PRN Reason: Protocol Stop: 10/26/16 22:01 Last Admin: 10/20/16 22:27 Dose: 200 mg Cilostazol (Pletal) 100 mg PO 1000,2200 [facility] Last Admin: 10/20/16 22:27 Dose: 100 mg Clopidogrel Bisulfate (Plavix) 75 mg PO 0800 [facility] Last Admin: 10/20/16 08:33 Dose: 75 mg Doxycycline Hyclate (Doryx) 100 mg PO Q12 [facility] PRN Reason: Protocol Stop: 10/26/16 22:01 Last Admin: 10/20/16 22:26 Dose: 100 mg Gabapentin (Neurontin) 300 mg PO BID [facility] PRN Reason: Protocol Last Admin: 10/20/16 17:29 Dose: 300 mg Hydralazine HCl (Apresoline) 10 mg IVP Q6 PRN PRN Reason: HTN Levothyroxine Sodium (Synthroid) 100 mcg PO 0600 [facility] Last Admin: 10/21/16 05:38 Dose: 100 mcg Lorazepam (Ativan) 2 mg IVP Q6H PRN; Protocol PRN Reason: Anxiety Losartan Potassium (Cozaar) 50 mg PO DAILY [facility] Last Admin: 10/20/16 10:06 Dose: 50 mg Naproxen (Anaprox Ds) 550 mg PO BID [facility] Last Admin: 10/20/16 17:16 Dose: 550 mg Nicotine (Nicoderm Cq) 1 patch TD DAILY [facility] Last Admin: 10/20/16 10:07 Dose: 1 patch Ondansetron HCl (Zofran Inj) 4 mg IVP Q4H PRN PRN Reason: Nausea/Vomiting Oxycodone/Acetaminophen (Percocet 5/325 Mg Tab) 1 tab PO Q6H PRN; Protocol PRN Reason: Pain, moderate (4-7) Stop: 10/23/16 22:48 Last Admin: 10/20/16 23:04 Dose: 1 tab Pantoprazole Sodium (Protonix Ec Tab) 40 mg PO 0600 [facility] Last Admin: 10/21/16 05:38 Dose: 40 mg Potassium Chloride (K-Dur 20 Meq Er Tab) 40 meq PO 0730,1800 [facility] Last Admin: 10/20/16 17:16 Dose: 40 meq - Labs Labs: 10/20/16 16:45 10/18/16 06:30 PT 12.0 Seconds (9.9-11.8) H 10/20/16 16:45 INR 1.11 (0.93-1.08) H 10/20/16 16:45 APTT 48.3 Seconds (23.7-30.8) H 10/18/16 06:30 Attending/Attestation - Attestation I have personally seen and examined this patient.: Yes I have fully participated in the care of the patient.: Yes I have reviewed all pertinent clinical information, including history, physical exam and plan: Yes
[2016-10-19] MEDS ORDERED: Vancomycin 1gm in NS 250ml 1 GM/250 ML BAG IVPB SCH (18:00)
[2016-10-19] MEDS: Oxycodone/Acetaminophen 5/325 mg Tab PO PRN (21:26)
[2016-10-19] MEDS: Cefpodoxime (Vantin) 200 mg Tab PO SCH (21:28)
--- NOTE | 2016-10-20 00:16 | PN ---
CARDIOLOGY FOLLOWUP DATE OF FOLLOWUP: 10/19/2016 The patient is in the TCU. Sitting in bed, comfortable. The pain in her right lower extremity has improved. PHYSICAL EXAMINATION: VITAL SIGNS: Blood pressure is 121/57, heart rate is in the 60s. NECK: Negative JVD. LUNGS: Without rales. HEART: Reveals S1 and S2. EXTREMITIES: Equal temperature in lower extremities. LABORATORY DATA: Hemoglobin is 10.8, which is unchanged. Chemistries are not done today. IMPRESSION: 1. Status post acute ischemia of the right lower extremity. 2. Status post thrombolysis of bypass graft in the right lower extremity. 3. Severe chronic obstructive pulmonary disease. 4. Stable angina. 5. History of an old anterior wall myocardial infarction. 6. History of noncompliance. PLAN: Given these findings, I have discussed with the patient about her need to stop smoking immediately. The patient seems to understand. She states "I will never smoke another cigarette again." I have discussed with her about ruling out coronary disease, which we will do with a stress test in a couple of weeks after the patient recovers from her present hospitalization. Jeremias Grider MD
--- NOTE | 2016-10-20 01:09 | PN ---
DATE: 10/19/2016 SUBJECTIVE: The patient is in bed, was seen earlier today in 302. No fevers and no chills. PHYSICAL EXAMINATION VITAL SIGNS: Temperature is 98, blood pressure is 120/50, respiratory rate of 16, heart rate of 69. HEENT: Unremarkable. NECK: Supple. LUNGS: Decreased breath sounds. HEART: Normal S1 and S2. ABDOMEN: Soft, nontender. LABORATORY DATA: Reveals a white count of 11,300, hemoglobin of 10, platelets of 365. Chemistries reveals a BUN of 6, creatinine of 0.6, and microbiology is noted. Blood cultures have all been negative. ASSESSMENT AND PLAN: A 66-year-old female with severe peripheral vascular disease, bilateral femoral-popliteal in the past, long-term smoker, chronic obstructive lung disease, coronary artery disease, myocardial infarction, peripheral neuropathy, status post angioplasty of lower extremity, developed low-grade fevers and leukocytosis and tachycardia and sepsis to her right lower leg, extremity cellulitis, currently much improved. All cultures negative and the patient is afebrile. White count is improving. We will complete the therapy with doxycycline and p.o. Vantin. Currently, we will discontinue the meropenem and discontinue the vancomycin. 200 mg Vantin p.o. b.i.d. x7 days and also 7 days of doxycycline. We will make further recommendations. Chad Simon MD
[2016-10-20] MEDS: Levothyroxine 100 MCG TAB PO SCH (05:57)
[2016-10-20] MEDS: Pantoprazole 40 mg EC Tab PO SCH (05:58)
[2016-10-20] MEDS: Potassium Chloride 20 mEq ER Tab PO SCH ×2 (08:30→17:16)
--- NOTE | 2016-10-20 09:15 | CP.PCM.PN ---
<Geovanny Landrum - Last Filed: 10/20/16 13:12> Subjective - Date & Time of Evaluation Date of Evaluation: 10/20/16 Time of Evaluation: 10:30 - Subjective Subjective: Patient seen and examined at bedside in TCU. No acute events overnight. Patient was resting comfortably in chair at bedside. States that the swelling the right lower extremity is mildly worse. Denies f/c/cp/sob/abdominal pain/n/v/diarrhea/ constipation/urinary symptoms. Objective - Vital Signs/Intake and Output Vital Signs (last 24 hours): Temp Pulse Resp BP Pulse Ox 98.2 F 73 18 101/51 L 92 L 10/19/16 16:54 10/19/16 16:54 10/19/16 16:54 10/19/16 16:54 10/19/16 16:54 - Medications Medications: Current Medications Apixaban (Eliquis) 5 mg PO BID [facility] PRN Reason: Protocol Last Admin: 10/19/16 18:07 Dose: 5 mg Atorvastatin Calcium (Lipitor) 20 mg PO DIN [facility] Last Admin: 10/19/16 18:06 Dose: 20 mg Cefpodoxime Proxetil (Vantin) 200 mg PO Q12 [facility] PRN Reason: Protocol Stop: 10/26/16 22:01 Last Admin: 10/19/16 21:28 Dose: 200 mg Cilostazol (Pletal) 100 mg PO 1000,2200 [facility] Last Admin: 10/19/16 21:28 Dose: 100 mg Clopidogrel Bisulfate (Plavix) 75 mg PO 0800 [facility] Last Admin: 10/20/16 08:33 Dose: 75 mg Doxycycline Hyclate (Doryx) 100 mg PO Q12 [facility] PRN Reason: Protocol Stop: 10/26/16 22:01 Last Admin: 10/19/16 21:28 Dose: 100 mg Gabapentin (Neurontin) 300 mg PO BID [facility] PRN Reason: Protocol Last Admin: 10/19/16 18:06 Dose: 300 mg Hydralazine HCl (Apresoline) 10 mg IVP Q6 PRN PRN Reason: HTN Levothyroxine Sodium (Synthroid) 100 mcg PO 0600 [facility] Last Admin: 10/20/16 05:57 Dose: 100 mcg Lorazepam (Ativan) 2 mg IVP Q6H PRN; Protocol PRN Reason: Anxiety Losartan Potassium (Cozaar) 50 mg PO DAILY [facility] Last Admin: 10/19/16 10:58 Dose: 50 mg Naproxen (Anaprox Ds) 550 mg PO BID [facility] Last Admin: 10/19/16 18:07 Dose: 550 mg Nicotine (Nicoderm Cq) 1 patch TD DAILY [facility] Last Admin: 10/19/16 10:56 Dose: 1 patch Ondansetron HCl (Zofran Inj) 4 mg IVP Q4H PRN PRN Reason: Nausea/Vomiting Oxycodone/Acetaminophen (Percocet 5/325 Mg Tab) 1 tab PO Q6H PRN PRN Reason: Pain, moderate (4-7) Stop: 10/20/16 22:05 Last Admin: 10/19/16 21:26 Dose: 1 tab Pantoprazole Sodium (Protonix Ec Tab) 40 mg PO 0600 [facility] Last Admin: 10/20/16 05:58 Dose: 40 mg Potassium Chloride (K-Dur 20 Meq Er Tab) 40 meq PO 0730,1800 [facility] Last Admin: 10/20/16 08:30 Dose: 40 meq - Labs Labs: 10/19/16 06:10 10/18/16 06:30 PT 11.7 Seconds (9.9-11.8) 10/19/16 06:10 INR 1.08 (0.93-1.08) 10/19/16 06:10 APTT 48.3 Seconds (23.7-30.8) H 10/18/16 06:30 - Additional Findings Additional findings: Constitutional: a&o x 4, nad Head and Neck: neck supple, no jvd, trachea midline, carotid midline, no cervical/head mass Eyes: jon, nonicteric sclera, eom intact ENT: auditory acuity grossly intact, throat not congested, no nasal deformity Cardio: rrr, no m/r/g, no carotid bruit, nml s1, s2 Pulm: no accessory muscle use, equal nml breath sounds bilaterally, ctab Abd: s/nt/nd, nbs x 4 q, no palpable masses Derm: no rashes, no ulcers, no lesions Extr: bilateral femoral pulses palpable, distal pulses now palpable b/l. Bilateral LEs cool but right is no longer cold. capillary refill time 3 secs on left, no longer severely delayed on right. no calf tenderness to compression. patient able to freely move LLE without pain; Not able to wiggle right toes yet. Right foot no longer discolored, trace edema noted in RLE Neuro: cn II-XII grossly intact, ue and le 5/5 muscle strength bilaterally, no los ue, le bilaterally and core Skin- ecchymosis left inguinal region near catheter site, erythema on the right LE montes region Assessment and Plan - Assessment and Plan (Free Text) Plan: 66 yo F with vasculopathy with bilateral femoral popliteal grafts, 78 pack year history of smoking, CAD with history of [place] in 1999, who was transferred to the TCU after treatment of her RLE PVD s/p ECOS. Right LE Trace Edema Details- redness on anterior montes noted - bilateral LE US DVT Right LE pain secondary to PVD - patient is s/p r ECOS via interventional radiology - patient is on eliquis as per cardiology - Patient is on Plavix - Analgesia with Percocet PRN, Tylenol PRN - Atorvastatin 20 mg PO DIN - C/W home Cilostazol 100 mg PO BID Transaminitis - likely reactive to recent ischemic event - follow cmp - continue statin Leukocytosis details- awaiting labs from today improved from 12.1 to 11.3 yesterday - patient started on vantin and doxy as per ID - blood cultures no growth in 1 day CAD - C/W Plavix 75 mg PO daily - C/W Atorvastatin as detailed above, dual benefit in this patient - C/W Losartan 50 mg PO daily Hypertension - c/w home losartan - correction goal is 140/90 Peripheral neuropathy, most likely secondary to Peripheral Vascular Disease - C/W Neurontin 600 mg BID - consider restarting pletal Hypothyroidism - C/W Levothyroxine 100 mcg PO daily Hypokalemia - Potassium 3.1, awaiting todays lab- patient refused stick to attain lab draw, patient education provided for importance of electrolyte balance, will reattempt - mag was repleted yesterday - increase regiment to 40 PO BID - replete, will continue to monitor with daily CMP GI prophylaxis - Protonix Discharge planning - continue PT outpatient after TCU discharge - follow up outpatient with Dr. Jeremias Talbot and PMD - advised to continue smoking cessation patient case and plan discussed with and approved by attending physician, Dr. Schmitt. <Ryan Schmitt - Last Filed: 12/03/16 16:43> Objective - Vital Signs/Intake and Output Vital Signs (last 24 hours): Temp Pulse Resp BP Pulse Ox 97.9 F 92 H 20 119/69 99 10/22/16 10:27 10/22/16 10:38 10/22/16 10:27 10/22/16 10:38 10/22/16 10:27 - Labs Labs: 10/22/16 06:30 10/22/16 06:30 PT 11.7 Seconds (9.9-11.8) 10/22/16 06:30 INR 1.08 (0.93-1.08) 10/22/16 06:30 APTT 48.3 Seconds (23.7-30.8) H 10/18/16 06:30 Attending/Attestation - Attestation I have personally seen and examined this patient.: Yes I have fully participated in the care of the patient.: Yes I have reviewed all pertinent clinical information, including history, physical exam and plan: Yes Notes (Text): 12/03/16 16:43 Medical record note made by the resident after discussion with my direction and input after the patient was personally seen and examined by me. I have reviewed the chart and agree that the record accurately reflects by personal performance of the history, physical exam, data review, and medical decision-making, in the course for the patient. I have also personally directed the plan of care.
[2016-10-20] MEDS: Naproxen 550 mg Tab PO SCH ×2 (10:05→17:16)
[2016-10-20] MEDS: Cilostazol 100 mg Tab UD PO SCH ×2 (10:09→22:27)
[2016-10-20] MEDS: Cefpodoxime (Vantin) 200 mg Tab PO SCH ×2 (10:12→22:27)
--- NOTE | 2016-10-20 13:45 | PN ---
DATE: 10/20/2016 SUBJECTIVE: The patient is in a chair, comfortable. Her right foot feels fine. PHYSICAL EXAMINATION VITAL SIGNS: Blood pressure 101/51, heart rate in the 70s. NECK: Negative JVD. LUNGS: Without rales. HEART: S1 and S2. EXTREMITIES: Equal temperature bilaterally: The color in the right lower extremity looks good. LABORATORY: No labs were done today. IMPRESSION: 1. Status post acute ischemia in the right lower extremity treated with thrombolysis. 2. Severe peripheral vascular disease. 3. Chronic obstructive pulmonary disease. 4. Anemia. PLAN: Given these findings, the patient is currently being treated with anticoagulation along with Plavix. I have discussed the risks, benefits of this combination with the patient in detail. She understands. Jeremias Grider MD
--- NOTE | 2016-10-20 14:20 | CP.PCM.PN ---
<DebbiestepanBrigitte - Last Filed: 10/20/16 14:16> Subjective - Date & Time of Evaluation Date of Evaluation: 10/20/16 Time of Evaluation: 14:19 - Subjective Subjective: 66 year old female patient with PMHx of CAD with [place] (1999), tobacco abuse, s/p Angioplaty / thrombolysis of right lower extremity (DOS 10/12/16) was seen at bedside TCU this morning with attending, Dr. Beaulieu. Patient seen out of bed in chair, AAOx3 and NAD. Patient denies any acute events overnight. Patient denies any pain to right leg at this visit however admits she is beginning to feel pain in her left leg which she believes may be due to compensation for right leg weakness Patient denies of any N/V/F/C/D/SOB/calf pain. No other pedal complaints at this time. Objective - Vital Signs/Intake and Output Vital Signs (last 24 hours): Temp Pulse Resp BP Pulse Ox 98.4 F 67 18 119/67 93 L 10/20/16 10:35 10/20/16 10:35 10/20/16 10:35 10/20/16 10:35 10/20/16 10:35 - Medications Medications: Current Medications Apixaban (Eliquis) 5 mg PO BID [facility] PRN Reason: Protocol Last Admin: 10/20/16 10:07 Dose: 5 mg Atorvastatin Calcium (Lipitor) 20 mg PO DIN [facility] Last Admin: 10/19/16 18:06 Dose: 20 mg Cefpodoxime Proxetil (Vantin) 200 mg PO Q12 [facility] PRN Reason: Protocol Stop: 10/26/16 22:01 Last Admin: 10/20/16 10:12 Dose: 200 mg Cilostazol (Pletal) 100 mg PO 1000,2200 [facility] Last Admin: 10/20/16 10:09 Dose: 100 mg Clopidogrel Bisulfate (Plavix) 75 mg PO 0800 [facility] Last Admin: 10/20/16 08:33 Dose: 75 mg Doxycycline Hyclate (Doryx) 100 mg PO Q12 [facility] PRN Reason: Protocol Stop: 10/26/16 22:01 Last Admin: 10/20/16 10:06 Dose: 100 mg Gabapentin (Neurontin) 300 mg PO BID [facility] PRN Reason: Protocol Last Admin: 10/20/16 10:05 Dose: 300 mg Hydralazine HCl (Apresoline) 10 mg IVP Q6 PRN PRN Reason: HTN Levothyroxine Sodium (Synthroid) 100 mcg PO 0600 [facility] Last Admin: 10/20/16 05:57 Dose: 100 mcg Lorazepam (Ativan) 2 mg IVP Q6H PRN; Protocol PRN Reason: Anxiety Losartan Potassium (Cozaar) 50 mg PO DAILY [facility] Last Admin: 10/20/16 10:06 Dose: 50 mg Naproxen (Anaprox Ds) 550 mg PO BID [facility] Last Admin: 10/20/16 10:05 Dose: 550 mg Nicotine (Nicoderm Cq) 1 patch TD DAILY [facility] Last Admin: 10/20/16 10:07 Dose: 1 patch Ondansetron HCl (Zofran Inj) 4 mg IVP Q4H PRN PRN Reason: Nausea/Vomiting Oxycodone/Acetaminophen (Percocet 5/325 Mg Tab) 1 tab PO Q6H PRN PRN Reason: Pain, moderate (4-7) Stop: 10/20/16 22:05 Last Admin: 10/19/16 21:26 Dose: 1 tab Pantoprazole Sodium (Protonix Ec Tab) 40 mg PO 0600 [facility] Last Admin: 10/20/16 05:58 Dose: 40 mg Potassium Chloride (K-Dur 20 Meq Er Tab) 40 meq PO 0730,1800 [facility] Last Admin: 10/20/16 08:30 Dose: 40 meq - Labs Labs: 10/19/16 06:10 10/18/16 06:30 PT 11.7 Seconds (9.9-11.8) 10/19/16 06:10 INR 1.08 (0.93-1.08) 10/19/16 06:10 APTT 48.3 Seconds (23.7-30.8) H 10/18/16 06:30 - Constitutional Appears: Well, Non-toxic, No Acute Distress - Extremities Exam Additional comments: Bilateral lower extremities exam DERM Right: No open wound is noted. Skin appears ruborous. No drainage is noted. No sign of acute infection is noted. Left: No open wound is noted. No erythema is noted. No drainage is noted. No sign of acute infection is noted. VASC: Right: Capillary refill time is normal less than 3 seconds to all digits. Nonpitting edema noted to ankle joint Left: [employer] for Left is <3 seconds to all digits. ORTHO: Slight atrophy noted to the musculature of the right lower extremity as compared to that of the Left. Mild pain upon left ankle ROM Drop foot is noted to right lower extremity with plantarflexed foot at the ankle. Decreased Passive and active dorsiflexion is noted at the Right ankle - Neurological Exam Neurological Exam: Alert, Awake, Oriented x3 - Psychiatric Exam Psychiatric exam: Normal Affect, Normal Mood Assessment and Plan - Assessment and Plan (Free Text) Assessment: 66 yo female patient with PAD: right lower extremity ischemia, s/p angioplasty and thrombolysis of Right Anterior Tibial artery and femoral-popliteal bypass graft Plan: Patient was seen, evaluated at the bedside TCU this morning with attending, Dr. Beaulieu Labs and vitals reviewed = afebrile, leukocytosis @ 11.3 however trending downwards (yesterday 10/19/16 @ 12.1) Continue Anti-coagulation as per Vascular Continue physical therapy; Right drop foot Discussed with physical therapy Profit AFO for patient to assist RLE weakness 1/4" felt heel pad added to shoe Podiatry will continue to follow in-house <Renuka Beaulieu - Last Filed: 10/24/16 19:59> Objective - Vital Signs/Intake and Output Vital Signs (last 24 hours): Temp Pulse Resp BP Pulse Ox 97.9 F 92 H 20 119/69 99 10/22/16 10:27 10/22/16 10:38 10/22/16 10:27 10/22/16 10:38 10/22/16 10:27 - Labs Labs: 10/22/16 06:30 10/22/16 06:30 PT 11.7 Seconds (9.9-11.8) 10/22/16 06:30 INR 1.08 (0.93-1.08) 10/22/16 06:30 APTT 48.3 Seconds (23.7-30.8) H 10/18/16 06:30
--- NOTE | 2016-10-20 15:59 | CP.PCM.PN ---
Subjective - Date & Time of Evaluation Date of Evaluation: 10/20/16 Time of Evaluation: 11:25 - Subjective Subjective: Comfortable, less leg pain, no fevers overnight, not in distress. Objective - Vital Signs/Intake and Output Vital Signs (last 24 hours): Temp Pulse Resp BP Pulse Ox 98.4 F 67 18 119/67 93 L 10/20/16 10:35 10/20/16 10:35 10/20/16 10:35 10/20/16 10:35 10/20/16 10:35 - Medications Medications: Current Medications Apixaban (Eliquis) 5 mg PO BID [facility] PRN Reason: Protocol Last Admin: 10/20/16 10:07 Dose: 5 mg Atorvastatin Calcium (Lipitor) 20 mg PO DIN [facility] Last Admin: 10/19/16 18:06 Dose: 20 mg Cefpodoxime Proxetil (Vantin) 200 mg PO Q12 [facility] PRN Reason: Protocol Stop: 10/26/16 22:01 Last Admin: 10/20/16 10:12 Dose: 200 mg Cilostazol (Pletal) 100 mg PO 1000,2200 [facility] Last Admin: 10/20/16 10:09 Dose: 100 mg Clopidogrel Bisulfate (Plavix) 75 mg PO 0800 [facility] Last Admin: 10/20/16 08:33 Dose: 75 mg Doxycycline Hyclate (Doryx) 100 mg PO Q12 [facility] PRN Reason: Protocol Stop: 10/26/16 22:01 Last Admin: 10/20/16 10:06 Dose: 100 mg Gabapentin (Neurontin) 300 mg PO BID [facility] PRN Reason: Protocol Last Admin: 10/20/16 10:05 Dose: 300 mg Hydralazine HCl (Apresoline) 10 mg IVP Q6 PRN PRN Reason: HTN Levothyroxine Sodium (Synthroid) 100 mcg PO 0600 [facility] Last Admin: 10/20/16 05:57 Dose: 100 mcg Lorazepam (Ativan) 2 mg IVP Q6H PRN; Protocol PRN Reason: Anxiety Losartan Potassium (Cozaar) 50 mg PO DAILY [facility] Last Admin: 10/20/16 10:06 Dose: 50 mg Naproxen (Anaprox Ds) 550 mg PO BID [facility] Last Admin: 10/20/16 10:05 Dose: 550 mg Nicotine (Nicoderm Cq) 1 patch TD DAILY [facility] Last Admin: 10/20/16 10:07 Dose: 1 patch Ondansetron HCl (Zofran Inj) 4 mg IVP Q4H PRN PRN Reason: Nausea/Vomiting Oxycodone/Acetaminophen (Percocet 5/325 Mg Tab) 1 tab PO Q6H PRN PRN Reason: Pain, moderate (4-7) Stop: 10/20/16 22:05 Last Admin: 10/19/16 21:26 Dose: 1 tab Pantoprazole Sodium (Protonix Ec Tab) 40 mg PO 0600 [facility] Last Admin: 10/20/16 05:58 Dose: 40 mg Potassium Chloride (K-Dur 20 Meq Er Tab) 40 meq PO 0730,1800 [facility] Last Admin: 10/20/16 08:30 Dose: 40 meq - Labs Labs: 10/19/16 06:10 10/18/16 06:30 PT 11.7 Seconds (9.9-11.8) 10/19/16 06:10 INR 1.08 (0.93-1.08) 10/19/16 06:10 APTT 48.3 Seconds (23.7-30.8) H 10/18/16 06:30 - Constitutional Appears: Non-toxic, No Acute Distress - Head Exam Head Exam: NORMAL INSPECTION - ENT Exam ENT Exam: Mucous Membranes Moist - Neck Exam Neck Exam: absent: Meningismus - Respiratory Exam Respiratory Exam: Decreased Breath Sounds - Cardiovascular Exam Cardiovascular Exam: +S1, +S2 - GI/Abdominal Exam GI & Abdominal Exam: Soft. absent: Tenderness Assessment and Plan - Assessment and Plan (Free Text) Plan: Assessment consider sepsis from right lower extremity cellulitis in this patient with severe peripheral vascular disease, S/P right anterior tibial artery angioplasty and thrombolysis of the bypass graft S/P bilateral femoral-popliteal bypass COPD CAD peripheral neuropathy Plan continue PO Vantin and Doxycycline to complete 7 days (day 2 today) will continue to monitor clinically
[2016-10-20 17:01] LABS: INR 1.11 (0.93-1.08)
[2016-10-20] MEDS: Oxycodone/Acetaminophen 5/325 mg Tab PO PRN ×2 (17:12→23:04)
[2016-10-20 17:31] LABS: HEMATOCRIT 37.6 % (36.0-48.0); MEAN CELL VOLUME 98.4 fl (80.0-105.0); MEAN CORPUSCULAR HEMOGLOBIN 31.9 pg (25.0-35.0); MEAN CORPUSCULAR HGB CONC 32.4 g/dl (31.0-37.0); MEAN PLATELET VOLUME 9.1 fl (7.0-11.0)
[2016-10-20 17:32] LABS: BASO # 0.02 K/mm3 (0.0-2.0); BASO % 0.2 % (0.0-3.0); EOS # 1.2 (0.0-0.7); EOS % 9.7 % (1.5-5.0); GRAN # 7.41 (1.4-6.5); GRAN % 61.6 % (50.0-68.0); LYMPH # 2.6 (1.2-3.4); LYMPH % 21.5 % (22.0-35.0); MONO # 0.8 (0.1-0.6)
--- NOTE | 2016-10-20 19:57 | US ---
HISTORY: Leg pain and swelling. Evaluate for DVT PHYSICIAN(S): Jeremias Talbot MD. TECHNIQUE: Duplex sonography and color-flow Doppler with graded compression were used to evaluate the deep venous systems of both lower extremities. FINDINGS: The visualized deep venous systems of both lower extremities are sonographically normal and compressible. Normal wave forms and augmentation are seen. There is no sonographic evidence for deep venous thrombosis in the visualized segments of both lower extremities. IMPRESSION: No sonographic evidence for deep venous thrombosis in the visualized segments of both lower extremities.
[2016-10-21] MEDS: Pantoprazole 40 mg EC Tab PO SCH (05:38)
[2016-10-21] MEDS: Levothyroxine 100 MCG TAB PO SCH (05:38)
[2016-10-21 08:05] LABS: BASO # 0.05 K/mm3 (0.0-2.0); BASO % 0.5 % (0.0-3.0); EOS # 1.4 (0.0-0.7); EOS % 12.8 % (1.5-5.0); GRAN # 6.24 (1.4-6.5); GRAN % 58.6 % (50.0-68.0); HEMATOCRIT 35.5 % (36.0-48.0); LYMPH # 2.2 (1.2-3.4); LYMPH % 21.1 % (22.0-35.0); MEAN CELL VOLUME 96.2 fl (80.0-105.0); MEAN CORPUSCULAR HEMOGLOBIN 31.2 pg (25.0-35.0); MEAN CORPUSCULAR HGB CONC 32.4 g/dl (31.0-37.0); MEAN PLATELET VOLUME 8.6 fl (7.0-11.0); MONO # 0.8 (0.1-0.6); RED CELL DISTRIBUTION WIDTH 13.9 % (11.5-14.5); WHITE BLOOD COUNT 10.6 10^3/ul (4.5-11.0)
[2016-10-21 08:17] LABS: ALKALINE PHOSPHATASE 88 U/L (38-133); ALT/SGPT 63 U/L (7-56); AST/SGOT 57 U/L (15-39); BILIRUBIN,TOTAL 0.5 mg/dL (0.2-1.3); BLOOD UREA NITROGEN 9 mg/dL (7-21); CALCIUM 9.4 mg/dL (8.4-10.5); CARBON DIOXIDE 29 mmol/L (21-33); CHLORIDE 102 mmol/L (98-107); GFR AFRICAN-AMERICAN > 60; GLUCOSE,RANDOM 89 mg/dL (70-110); INR 1.07 (0.93-1.08); MAGNESIUM 2.1 mg/dL (1.7-2.2); POTASSIUM 4.9 mmol/L (3.6-5.0); SODIUM 139 mmol/L (132-148); TOTAL PROTEIN 6.9 g/dL (5.8-8.3)
[2016-10-21] MEDS: Potassium Chloride 20 mEq ER Tab PO SCH (08:30)
--- NOTE | 2016-10-21 08:34 | CP.PCM.PN ---
<Diallo Reid - Last Filed: 10/21/16 08:30> Subjective - Date & Time of Evaluation Date of Evaluation: 10/21/16 Time of Evaluation: 08:30 - Subjective Subjective: 66 year old female patient was seen at bedside TCU this morning with attending, Dr. Franco. AAOx3 and NAD. Patient denies any acute events overnight. Patient still admits to mild pain to right anterior leg. Patient denies of any N/V/F/C/ D/SOB/calf pain. No other pedal complaints at this time. Objective - Vital Signs/Intake and Output Vital Signs (last 24 hours): Temp Pulse Resp BP Pulse Ox 97.9 F 69 18 137/75 95 10/20/16 16:54 10/20/16 16:54 10/20/16 16:54 10/20/16 16:54 10/20/16 16:54 - Medications Medications: Current Medications Apixaban (Eliquis) 5 mg PO BID [facility] PRN Reason: Protocol Last Admin: 10/20/16 17:16 Dose: 5 mg Atorvastatin Calcium (Lipitor) 20 mg PO DIN REPLACED BY [facility] Last Admin: 10/20/16 17:15 Dose: 20 mg Cefpodoxime Proxetil (Vantin) 200 mg PO Q12 [facility] PRN Reason: Protocol Stop: 10/26/16 22:01 Last Admin: 10/20/16 22:27 Dose: 200 mg Cilostazol (Pletal) 100 mg PO 1000,2200 REPLACED BY [facility] Last Admin: 10/20/16 22:27 Dose: 100 mg Clopidogrel Bisulfate (Plavix) 75 mg PO 0800 REPLACED BY [facility] Last Admin: 10/20/16 08:33 Dose: 75 mg Doxycycline Hyclate (Doryx) 100 mg PO Q12 [facility] PRN Reason: Protocol Stop: 10/26/16 22:01 Last Admin: 10/20/16 22:26 Dose: 100 mg Gabapentin (Neurontin) 300 mg PO BID [facility] PRN Reason: Protocol Last Admin: 10/20/16 17:29 Dose: 300 mg Hydralazine HCl (Apresoline) 10 mg IVP Q6 PRN PRN Reason: HTN Levothyroxine Sodium (Synthroid) 100 mcg PO 0600 REPLACED BY [facility] Last Admin: 10/21/16 05:38 Dose: 100 mcg Lorazepam (Ativan) 2 mg IVP Q6H PRN; Protocol PRN Reason: Anxiety Losartan Potassium (Cozaar) 50 mg PO DAILY REPLACED BY [facility] Last Admin: 10/20/16 10:06 Dose: 50 mg Naproxen (Anaprox Ds) 550 mg PO BID REPLACED BY [facility] Last Admin: 10/20/16 17:16 Dose: 550 mg Nicotine (Nicoderm Cq) 1 patch TD DAILY REPLACED BY [facility] Last Admin: 10/20/16 10:07 Dose: 1 patch Ondansetron HCl (Zofran Inj) 4 mg IVP Q4H PRN PRN Reason: Nausea/Vomiting Oxycodone/Acetaminophen (Percocet 5/325 Mg Tab) 1 tab PO Q6H PRN; Protocol PRN Reason: Pain, moderate (4-7) Stop: 10/23/16 22:48 Last Admin: 10/20/16 23:04 Dose: 1 tab Pantoprazole Sodium (Protonix Ec Tab) 40 mg PO 0600 REPLACED BY [facility] Last Admin: 10/21/16 05:38 Dose: 40 mg Potassium Chloride (K-Dur 20 Meq Er Tab) 40 meq PO 0730,1800 REPLACED BY [facility] Last Admin: 10/20/16 17:16 Dose: 40 meq - Labs Labs: 10/21/16 07:30 10/21/16 07:30 PT 11.6 Seconds (9.9-11.8) 10/21/16 07:30 INR 1.07 (0.93-1.08) 10/21/16 07:30 APTT 48.3 Seconds (23.7-30.8) H 10/18/16 06:30 - Constitutional Appears: Well, Non-toxic, No Acute Distress - Head Exam Head Exam: ATRAUMATIC - Extremities Exam Additional comments: Bilateral lower extremities exam DERM Right: No open wound is noted. normal skin color. No erythema is noted. No drainage is noted. No sign of acute infection is noted. Left: No open wound is noted. No erythema is noted. No drainage is noted. No sign of acute infection is noted. VASC: Right: Capillary refill time is normal less than 3 seconds to all digits. Skin warm to touch Left: [employer] for Left is <3 seconds to all digits. Skin warm to touch ORTHO: Slight atrophy noted to the musculature of the right lower extremity as compared to that of the Left. Pain on palpation to joints distal to right ankle. No pain is induced for left lower extremity. Drop foot is noted to right lower extremity with plantarflexed foot at the ankle. Decreased Passive and active dorsiflexion is noted at the Right ankle secondary to guarding. - Neurological Exam Neurological Exam: Alert, Awake, Oriented x3 - Psychiatric Exam Psychiatric exam: Normal Affect, Normal Mood - Skin Skin Exam: Normal Color, Warm Assessment and Plan - Assessment and Plan (Free Text) Assessment: 66 yo female patient with PAD: right lower extremity ischemia, s/p angioplasty and thrombolysis of Right Anterior Tibial artery and femoral-popliteal bypass graft Plan: Patient was seen, evaluated at the bedside TCU this morning with attending, Dr. Beaulieu Labs and vitals reviewed = afebrile, 10.6 WBC Continue Anti-coagulation as per Vascular Continue physical therapy; Right drop foot AFO for patient to assist RLE weakness Continue wearing 1/4" felt heel pad shoe Podiatry will continue to follow in-house <Stephon Franco - Last Filed: 10/22/16 10:21> Objective - Vital Signs/Intake and Output Vital Signs (last 24 hours): Temp Pulse Resp BP Pulse Ox 98 F 80 18 118/51 L 92 L 10/21/16 16:27 10/21/16 16:27 10/21/16 16:27 10/21/16 16:27 10/21/16 16:27 - Medications Medications: Current Medications Apixaban (Eliquis) 5 mg PO BID REPLACED BY [facility] PRN Reason: Protocol Last Admin: 10/21/16 17:16 Dose: 5 mg Atorvastatin Calcium (Lipitor) 20 mg PO DIN REPLACED BY [facility] Last Admin: 10/21/16 17:16 Dose: 20 mg Cefpodoxime Proxetil (Vantin) 200 mg PO Q12 REPLACED BY [facility] PRN Reason: Protocol Stop: 10/26/16 22:01 Last Admin: 10/21/16 21:13 Dose: 200 mg Cilostazol (Pletal) 100 mg PO 1000,2200 REPLACED BY [facility] Last Admin: 10/21/16 21:12 Dose: 100 mg Clopidogrel Bisulfate (Plavix) 75 mg PO 0800 REPLACED BY [facility] Last Admin: 10/22/16 08:19 Dose: 75 mg Doxycycline Hyclate (Doryx) 100 mg PO Q12 REPLACED BY [facility] PRN Reason: Protocol Stop: 10/26/16 22:01 Last Admin: 10/21/16 21:11 Dose: 100 mg Gabapentin (Neurontin) 300 mg PO BID [facility] PRN Reason: Protocol Last Admin: 10/21/16 17:16 Dose: 300 mg Hydralazine HCl (Apresoline) 10 mg IVP Q6 PRN PRN Reason: HTN Levothyroxine Sodium (Synthroid) 100 mcg PO 0600 REPLACED BY [facility] Last Admin: 10/22/16 05:20 Dose: 100 mcg Lorazepam (Ativan) 2 mg IVP Q6H PRN; Protocol PRN Reason: Anxiety Losartan Potassium (Cozaar) 50 mg PO DAILY REPLACED BY [facility] Last Admin: 10/21/16 10:04 Dose: 50 mg Naproxen (Anaprox Ds) 550 mg PO BID REPLACED BY [facility] Last Admin: 10/21/16 17:16 Dose: 550 mg Nicotine (Nicoderm Cq) 1 patch TD DAILY REPLACED BY [facility] Last Admin: 10/21/16 10:02 Dose: 1 patch Ondansetron HCl (Zofran Inj) 4 mg IVP Q4H PRN PRN Reason: Nausea/Vomiting Oxycodone/Acetaminophen (Percocet 5/325 Mg Tab) 1 tab PO Q6H PRN; Protocol PRN Reason: Pain, moderate (4-7) Stop: 10/23/16 22:48 Last Admin: 10/21/16 21:14 Dose: 1 tab Pantoprazole Sodium (Protonix Ec Tab) 40 mg PO 0600 REPLACED BY [facility] Last Admin: 10/22/16 05:20 Dose: 40 mg Potassium Chloride (K-Dur 20 Meq Er Tab) 40 meq PO 0730,1800 REPLACED BY [facility] Last Admin: 10/21/16 08:30 Dose: 40 meq - Labs Labs: 10/22/16 06:30 10/22/16 06:30 PT 11.7 Seconds (9.9-11.8) 10/22/16 06:30 INR 1.08 (0.93-1.08) 10/22/16 06:30 APTT 48.3 Seconds (23.7-30.8) H 10/18/16 06:30 Attending/Attestation - Attestation I have personally seen and examined this patient.: Yes I have fully participated in the care of the patient.: Yes I have reviewed all pertinent clinical information, including history, physical exam and plan: Yes
[2016-10-21] MEDS: Naproxen 550 mg Tab PO SCH ×2 (10:01→17:16)
[2016-10-21] MEDS: Cefpodoxime (Vantin) 200 mg Tab PO SCH ×2 (10:03→21:13)
[2016-10-21] MEDS: Cilostazol 100 mg Tab UD PO SCH ×2 (10:03→21:12)
--- NOTE | 2016-10-21 12:45 | CP.PCM.PN ---
Subjective - Date & Time of Evaluation Date of Evaluation: 10/21/16 Time of Evaluation: 11:10 - Subjective Subjective: Comfortable in bed, not in distress, afebrile, much improved pain profile on the right leg. Objective - Vital Signs/Intake and Output Vital Signs (last 24 hours): Temp Pulse Resp BP Pulse Ox 97.9 F 69 18 137/75 95 10/20/16 16:54 10/20/16 16:54 10/20/16 16:54 10/20/16 16:54 10/20/16 16:54 - Medications Medications: Current Medications Apixaban (Eliquis) 5 mg PO BID [facility] PRN Reason: Protocol Last Admin: 10/20/16 17:16 Dose: 5 mg Atorvastatin Calcium (Lipitor) 20 mg PO DIN [facility] Last Admin: 10/20/16 17:15 Dose: 20 mg Cefpodoxime Proxetil (Vantin) 200 mg PO Q12 [facility] PRN Reason: Protocol Stop: 10/26/16 22:01 Last Admin: 10/20/16 22:27 Dose: 200 mg Cilostazol (Pletal) 100 mg PO 1000,2200 [facility] Last Admin: 10/20/16 22:27 Dose: 100 mg Clopidogrel Bisulfate (Plavix) 75 mg PO 0800 [facility] Last Admin: 10/21/16 08:30 Dose: 75 mg Doxycycline Hyclate (Doryx) 100 mg PO Q12 [facility] PRN Reason: Protocol Stop: 10/26/16 22:01 Last Admin: 10/20/16 22:26 Dose: 100 mg Gabapentin (Neurontin) 300 mg PO BID [facility] PRN Reason: Protocol Last Admin: 10/20/16 17:29 Dose: 300 mg Hydralazine HCl (Apresoline) 10 mg IVP Q6 PRN PRN Reason: HTN Levothyroxine Sodium (Synthroid) 100 mcg PO 0600 [facility] Last Admin: 10/21/16 05:38 Dose: 100 mcg Lorazepam (Ativan) 2 mg IVP Q6H PRN; Protocol PRN Reason: Anxiety Losartan Potassium (Cozaar) 50 mg PO DAILY [facility] Last Admin: 10/20/16 10:06 Dose: 50 mg Naproxen (Anaprox Ds) 550 mg PO BID [facility] Last Admin: 10/20/16 17:16 Dose: 550 mg Nicotine (Nicoderm Cq) 1 patch TD DAILY [facility] Last Admin: 10/20/16 10:07 Dose: 1 patch Ondansetron HCl (Zofran Inj) 4 mg IVP Q4H PRN PRN Reason: Nausea/Vomiting Oxycodone/Acetaminophen (Percocet 5/325 Mg Tab) 1 tab PO Q6H PRN; Protocol PRN Reason: Pain, moderate (4-7) Stop: 10/23/16 22:48 Last Admin: 10/20/16 23:04 Dose: 1 tab Pantoprazole Sodium (Protonix Ec Tab) 40 mg PO 0600 [facility] Last Admin: 10/21/16 05:38 Dose: 40 mg Potassium Chloride (K-Dur 20 Meq Er Tab) 40 meq PO 0730,1800 [facility] Last Admin: 10/21/16 08:30 Dose: 40 meq - Labs Labs: 10/21/16 07:30 10/21/16 07:30 PT 11.6 Seconds (9.9-11.8) 10/21/16 07:30 INR 1.07 (0.93-1.08) 10/21/16 07:30 APTT 48.3 Seconds (23.7-30.8) H 10/18/16 06:30 - Constitutional Appears: Non-toxic, No Acute Distress - Head Exam Head Exam: NORMAL INSPECTION - Neck Exam Neck Exam: absent: Meningismus - Respiratory Exam Respiratory Exam: Decreased Breath Sounds - Cardiovascular Exam Cardiovascular Exam: +S1, +S2 - GI/Abdominal Exam GI & Abdominal Exam: Soft. absent: Tenderness - Extremities Exam Additional comments: right leg feels as warm as the left leg, no discharge, no open wounds Assessment and Plan - Assessment and Plan (Free Text) Plan: Assessment consider sepsis from right lower extremity cellulitis in this patient with severe peripheral vascular disease, S/P right anterior tibial artery angioplasty and thrombolysis of the bypass graft S/P bilateral femoral-popliteal bypass COPD CAD peripheral neuropathy Plan continue PO Vantin and Doxycycline to complete 7 days (day 3 today) will continue to monitor clinically
--- NOTE | 2016-10-21 13:33 | PN ---
DATE: 10/21/2016 CARDIOLOGY FOLLOW UP NOTE SUBJECTIVE: The patient is comfortable in a chair. PHYSICAL EXAMINATION VITAL SIGNS: Blood pressure of 134/68 and the heart rate is in the 60s. NECK: Negative JVD. LUNGS: Without rales. EXTREMITIES: Warm bilaterally. LABORATORY DATA: Hemoglobin is 11.5. Chemistries, BUN and creatinine are unremarkable. IMPRESSION 1. Status post from thrombolysis of the ischemic right lower extremity. 2. Severe peripheral vascular disease. 3. Chronic obstructive pulmonary disease. 4. Anemia. 5. High probability for coronary artery disease. PLAN: Given these findings, the patient is for discharge this weekend. We will arrange for an outpatient stress test next week. Jeremias Grider MD
[2016-10-21] MEDS: Oxycodone/Acetaminophen 5/325 mg Tab PO PRN (21:14)
[2016-10-22] MEDS: Levothyroxine 100 MCG TAB PO SCH (05:20)
[2016-10-22] MEDS: Pantoprazole 40 mg EC Tab PO SCH (05:20)
[2016-10-22 06:49] LABS: BASO # 0.06 K/mm3 (0.0-2.0); BASO % 0.5 % (0.0-3.0); EOS # 1.4 (0.0-0.7); EOS % 12.9 % (1.5-5.0); GRAN # 6.16 (1.4-6.5); GRAN % 55.4 % (50.0-68.0); HEMATOCRIT 36.6 % (36.0-48.0); LYMPH # 2.7 (1.2-3.4); LYMPH % 24.2 % (22.0-35.0); MEAN CELL VOLUME 96.1 fl (80.0-105.0); MEAN CORPUSCULAR HEMOGLOBIN 31.5 pg (25.0-35.0); MEAN CORPUSCULAR HGB CONC 32.8 g/dl (31.0-37.0); MEAN PLATELET VOLUME 8.4 fl (7.0-11.0); MONO # 0.8 (0.1-0.6); RED CELL DISTRIBUTION WIDTH 13.9 % (11.5-14.5); WHITE BLOOD COUNT 11.1 10^3/ul (4.5-11.0)
[2016-10-22 06:58] LABS: INR 1.08 (0.93-1.08)
[2016-10-22 07:04] LABS: ALB/GLOB RATIO 0.9 (1.1-1.8); ALKALINE PHOSPHATASE 93 U/L (38-126); ALT/SGPT 53 U/L (7-56); AST/SGOT 53 U/L (14-36); BILIRUBIN,TOTAL 0.7 mg/dL (0.2-1.3); BLOOD UREA NITROGEN 11 mg/dL (7-21); CALCIUM 9.3 mg/dL (8.4-10.5); CARBON DIOXIDE 30 mmol/L (21-33); CHLORIDE 100 mmol/L (95-110); GFR AFRICAN-AMERICAN > 60; GLUCOSE,RANDOM 101 mg/dL (70-110); POTASSIUM 4.7 mmol/L (3.6-5.0); SODIUM 137 mmol/L (132-148); TOTAL PROTEIN 7.2 g/dL (5.8-8.3)
--- NOTE | 2016-10-22 10:05 | PN ---
DATE: 10/22/2016 SUBJECTIVE: The patient is in bed, in no acute distress, nontoxic. PHYSICAL EXAMINATION: VITAL SIGNS: Temperature is 98, blood pressure is 118/50, respiratory rate of 18, heart rate of 63. HEENT: Unremarkable. NECK: Supple. LUNGS: Decreased breath sounds. HEART: Normal S1 and S2. ABDOMEN: Soft, nontender. LABORATORY DATA: Reveals a white count of 11,000, hemoglobin of 12, platelets of 494. Chemistries reveals a BUN of 11, creatinine of 0.7. Microbiology is noted. The patient's leg is noted. ASSESSMENT AND PLAN: A 66-year-old female with sepsis, right lower extremity cellulitis, which has resolved now with severe peripheral vascular disease, status post anterior tibial artery angioplasty and thrombolysis of the bypass graft, status post bilateral femoral-popliteal bypass and the patient with chronic obstructive pulmonary disease, coronary artery disease. Today is day #4 of p.o. Vantin and p.o. doxycycline, would complete 5 to 7 days. Chad Simon MD
[2016-10-22 10:28] VITALS: BP 119/69; PULSE 92; RESP 20; TEMP 97.9; O2SAT 99
--- NOTE | 2016-10-22 10:36 | CP.PCM.DIS ---
<Geovanny Landrum - Last Filed: 10/22/16 10:51> Provider - Provider Date of Admission: 10/17/16 17:16 Attending physician: Akhil Geronimo MD Primary care physician: Brook Gee MD Consults: Podiatry Infectious Disease Time Spent in preparation of Discharge (in minutes): 30 Hospital Course - Lab Results Lab Results: Most Recent Lab Values WBC 11.1 10^3/ul (4.5-11.0) H 10/22/16 06:30 RBC 3.81 10^6/uL (3.5-6.1) 10/22/16 06:30 Hgb 12.0 g/dL (12.0-16.0) 10/22/16 06:30 Hct 36.6 % (36.0-48.0) 10/22/16 06:30 MCV 96.1 fl (80.0-105.0) 10/22/16 06:30 MCH 31.5 pg (25.0-35.0) 10/22/16 06:30 MCHC 32.8 g/dl (31.0-37.0) 10/22/16 06:30 RDW 13.9 % (11.5-14.5) 10/22/16 06:30 Plt Count 494 10^3/uL (120.0-450.0) H 10/22/16 06:30 MPV 8.4 fl (7.0-11.0) 10/22/16 06:30 Gran % 55.4 % (50.0-68.0) 10/22/16 06:30 Lymph % (Auto) 24.2 % (22.0-35.0) 10/22/16 06:30 Schuyler % (Auto) 7.0 % (1.0-6.0) H 10/22/16 06:30 Eos % (Auto) 12.9 % (1.5-5.0) H 10/22/16 06:30 Baso % (Auto) 0.5 % (0.0-3.0) 10/22/16 06:30 Gran # 6.16 (1.4-6.5) 10/22/16 06:30 Lymph # 2.7 (1.2-3.4) 10/22/16 06:30 Schuyler # 0.8 (0.1-0.6) H 10/22/16 06:30 Eos # 1.4 (0.0-0.7) H 10/22/16 06:30 Baso # 0.06 K/mm3 (0.0-2.0) 10/22/16 06:30 PT 11.7 Seconds (9.9-11.8) 10/22/16 06:30 INR 1.08 (0.93-1.08) 10/22/16 06:30 APTT 48.3 Seconds (23.7-30.8) H 10/18/16 06:30 Sodium 137 mmol/L (132-148) 10/22/16 06:30 Potassium 4.7 mmol/L (3.6-5.0) 10/22/16 06:30 Chloride 100 mmol/L (95-110) 10/22/16 06:30 Carbon Dioxide 30 mmol/L (21-33) 10/22/16 06:30 Anion Gap 12 (10-20) 10/22/16 06:30 BUN 11 mg/dL (7-21) 10/22/16 06:30 Creatinine 0.7 mg/dL (0.5-1.4) 10/22/16 06:30 Est GFR ( Amer) > 60 10/22/16 06:30 Est GFR (Non-Af Amer) > 60 10/22/16 06:30 Random Glucose 101 mg/dL (70-110) 10/22/16 06:30 Calcium 9.3 mg/dL (8.4-10.5) 10/22/16 06:30 Magnesium 2.0 mg/dL (1.7-2.2) 10/22/16 06:30 Total Bilirubin 0.7 mg/dL (0.2-1.3) 10/22/16 06:30 AST 53 U/L (14-36) H 10/22/16 06:30 ALT 53 U/L (7-56) 10/22/16 06:30 Alkaline Phosphatase 93 U/L (38-126) 10/22/16 06:30 Total Protein 7.2 g/dL (5.8-8.3) 10/22/16 06:30 Albumin 3.5 g/dL (3.0-4.8) 10/22/16 06:30 Globulin 3.8 gm/dL 10/22/16 06:30 Albumin/Globulin Ratio 0.9 (1.1-1.8) L 10/22/16 06:30 - Hospital Course Hospital Course: Patient is a 66 year old female with a PMHx of 66 yo F with vasculopathy with bilateral femoral popliteal grafts, 78 pack year history of smoking, CAD with history of [place] in 1999, who was transferred to the TCU after treatment of her RLE PVD s/p ECOS. During her stay in the TCU infectious disease and podiatry continued to evaluate and treat the patient's right lower extremity cellulitis and right foot s/p reperfusion. Patient agrees with and understands discharge plan. Patient advised to take medications as prescribed. Patient advised to follow with PMD and podiatry at there outpatient offices within 1 week. If symptoms worsen call PMD or return to emergency department for evaluation. Also return to ED for fevers, chills, chest pain, SOB, abdominal pain, intractable N/V, diarrhea, and constipation. Patient is medically cleared for discharge to home with self care. Assessment and Plan: 66 yo F with vasculopathy with bilateral femoral popliteal grafts, 78 pack year history of smoking, CAD with history of [place] in 1999, who was transferred to the TCU after treatment of her RLE PVD s/p ECOS. Right LE Trace Edema resolved continue antibiotics as prescribed Right LE pain secondary to PVD improved stable Transaminitis stable follow up with PMD CAD - C/W Plavix 75 mg PO daily - C/W Atorvastatin as detailed above, dual benefit in this patient - C/W Losartan 50 mg PO daily Hypertension - c/w home losartan - group home goal is 140/90 Peripheral neuropathy, most likely secondary to Peripheral Vascular Disease - C/W Neurontin Hypothyroidism - C/W Levothyroxine 100 mcg PO daily Discharge Exam - Head Exam Head Exam: NORMAL INSPECTION - Additional Findings Additional findings: Constitutional: a&o x 4, nad Head and Neck: neck supple, no jvd, trachea midline, carotid midline, no cervical/head mass Eyes: jon, nonicteric sclera, eom intact ENT: auditory acuity grossly intact, throat not congested, no nasal deformity Cardio: rrr, no m/r/g, no carotid bruit, nml s1, s2 Pulm: no accessory muscle use, equal nml breath sounds bilaterally, ctab Abd: s/nt/nd, nbs x 4 q, no palpable masses Derm: no rashes, no ulcers, no lesions Extr: bilateral femoral pulses palpable, distal pulses now palpable b/l. Bilateral LEs cool but right is no longer cold. capillary refill time 3 secs on left, no longer severely delayed on right. no calf tenderness to compression. patient able to freely move LLE without pain; Not able to wiggle right toes yet. Right foot no longer discolored, right lower extremity trace edema and redness significantly improved from onset Neuro: cn II-XII grossly intact, ue and le 5/5 muscle strength bilaterally, no los ue, le bilaterally and core Skin- ecchymosis left inguinal region near catheter site, erythema on the right LE montes region Discharge Plan - Discharge Medications Prescriptions: Doxycycline Hyclate [Doryx] 100 mg PO Q12 #8 cap Apixaban [Eliquis] 5 mg PO BID #60 tab Cefpodoxime [Vantin] 200 mg PO Q12 #8 tab - Follow Up Plan Condition: GOOD Disposition: HOME/ ROUTINE Patient education suggested?: Yes Instructions: Apixaban (By mouth), Femoropopliteal Bypass (DC), Hypertension ( DC), Hypertension (GEN), Fall Prevention (DC), Thrombolysis (DC) Additional Instructions: Discharge Instructions Take medications as prescribed Follow up with PMD and [facility] in 1 week from discharge If symptoms worsen call PMD or return to emergency department for evaluation. Also return to ED for fevers, chills, chest pain, SOB, abdominal pain, intractable N/V, diarrhea, and constipation. New Medications/ Medication Changes Decrease gabapentin from 600 bid to 300 bid per pt tolerance3 Start Eliquis PO Vantin and Doxycycline to complete 7 days total (day 4 today) Discharge Diagnosis Right Lower extremity Cellulitis discussed w/ resident prxs given needs to follow up w/ de dedousis in next week low salt low sugar diet Referrals: Brook Gee MD [Primary Care Provider] - <Kevin Hidalgo - Last Filed: 10/22/16 11:08> Provider - Provider Date of Admission: 10/17/16 17:16 Attending physician: Akhil Geronimo MD Primary care physician: Brook Gee MD Hospital Course - Lab Results Lab Results: Most Recent Lab Values WBC 11.1 10^3/ul (4.5-11.0) H 10/22/16 06:30 RBC 3.81 10^6/uL (3.5-6.1) 10/22/16 06:30 Hgb 12.0 g/dL (12.0-16.0) 10/22/16 06:30 Hct 36.6 % (36.0-48.0) 10/22/16 06:30 MCV 96.1 fl (80.0-105.0) 10/22/16 06:30 MCH 31.5 pg (25.0-35.0) 10/22/16 06:30 MCHC 32.8 g/dl (31.0-37.0) 10/22/16 06:30 RDW 13.9 % (11.5-14.5) 10/22/16 06:30 Plt Count 494 10^3/uL (120.0-450.0) H 10/22/16 06:30 MPV 8.4 fl (7.0-11.0) 10/22/16 06:30 Gran % 55.4 % (50.0-68.0) 10/22/16 06:30 Lymph % (Auto) 24.2 % (22.0-35.0) 10/22/16 06:30 Schuyler % (Auto) 7.0 % (1.0-6.0) H 10/22/16 06:30 Eos % (Auto) 12.9 % (1.5-5.0) H 10/22/16 06:30 Baso % (Auto) 0.5 % (0.0-3.0) 10/22/16 06:30 Gran # 6.16 (1.4-6.5) 10/22/16 06:30 Lymph # 2.7 (1.2-3.4) 10/22/16 06:30 Schuyler # 0.8 (0.1-0.6) H 10/22/16 06:30 Eos # 1.4 (0.0-0.7) H 10/22/16 06:30 Baso # 0.06 K/mm3 (0.0-2.0) 10/22/16 06:30 PT 11.7 Seconds (9.9-11.8) 10/22/16 06:30 INR 1.08 (0.93-1.08) 10/22/16 06:30 APTT 48.3 Seconds (23.7-30.8) H 10/18/16 06:30 Sodium 137 mmol/L (132-148) 10/22/16 06:30 Potassium 4.7 mmol/L (3.6-5.0) 10/22/16 06:30 Chloride 100 mmol/L (95-110) 10/22/16 06:30 Carbon Dioxide 30 mmol/L (21-33) 10/22/16 06:30 Anion Gap 12 (10-20) 10/22/16 06:30 BUN 11 mg/dL (7-21) 10/22/16 06:30 Creatinine 0.7 mg/dL (0.5-1.4) 10/22/16 06:30 Est GFR ( Amer) > 60 10/22/16 06:30 Est GFR (Non-Af Amer) > 60 10/22/16 06:30 Random Glucose 101 mg/dL (70-110) 10/22/16 06:30 Calcium 9.3 mg/dL (8.4-10.5) 10/22/16 06:30 Magnesium 2.0 mg/dL (1.7-2.2) 10/22/16 06:30 Total Bilirubin 0.7 mg/dL (0.2-1.3) 10/22/16 06:30 AST 53 U/L (14-36) H 10/22/16 06:30 ALT 53 U/L (7-56) 10/22/16 06:30 Alkaline Phosphatase 93 U/L (38-126) 10/22/16 06:30 Total Protein 7.2 g/dL (5.8-8.3) 10/22/16 06:30 Albumin 3.5 g/dL (3.0-4.8) 10/22/16 06:30 Globulin 3.8 gm/dL 10/22/16 06:30 Albumin/Globulin Ratio 0.9 (1.1-1.8) L 10/22/16 06:30
[2016-10-22] MEDS: Naproxen 550 mg Tab PO SCH (10:37)
[2016-10-22] MEDS: Cefpodoxime (Vantin) 200 mg Tab PO SCH (10:47)
[2016-10-22] MEDS: Cilostazol 100 mg Tab UD PO SCH (10:47)
--- NOTE | 2016-10-22 11:29 | CP.PCM.PN ---
<Cynthia Ramos - Last Filed: 10/22/16 11:27> Subjective - Date & Time of Evaluation Date of Evaluation: 10/22/16 Time of Evaluation: 11:27 - Subjective Subjective: Podiatry progress note for Dr. Franco: 66 year old female patient was seen at bedside TCU this morning with attending, Dr. Franco. AAOx3 and NAD. Patient denies any acute events overnight. Patient still admits to mild pain to right anterior leg. Patient denies of any N/V/F/C/ D/SOB/calf pain. No other pedal complaints at this time. Objective - Vital Signs/Intake and Output Vital Signs (last 24 hours): Temp Pulse Resp BP Pulse Ox 97.9 F 92 H 20 119/69 99 10/22/16 10:27 10/22/16 10:38 10/22/16 10:27 10/22/16 10:38 10/22/16 10:27 - Medications Medications: Current Medications Apixaban (Eliquis) 5 mg PO BID FAWAD PRN Reason: Protocol Last Admin: 10/22/16 10:49 Dose: 5 mg Atorvastatin Calcium (Lipitor) 20 mg PO DIN [facility] Last Admin: 10/21/16 17:16 Dose: 20 mg Cefpodoxime Proxetil (Vantin) 200 mg PO Q12 FAWAD PRN Reason: Protocol Stop: 10/26/16 22:01 Last Admin: 10/22/16 10:47 Dose: 200 mg Cilostazol (Pletal) 100 mg PO 1000,2200 [facility] Last Admin: 10/22/16 10:47 Dose: 100 mg Clopidogrel Bisulfate (Plavix) 75 mg PO 0800 [facility] Last Admin: 10/22/16 08:19 Dose: 75 mg Doxycycline Hyclate (Doryx) 100 mg PO Q12 FAWAD PRN Reason: Protocol Stop: 10/26/16 22:01 Last Admin: 10/22/16 10:39 Dose: 100 mg Gabapentin (Neurontin) 300 mg PO BID FAWAD PRN Reason: Protocol Last Admin: 10/22/16 10:48 Dose: 300 mg Hydralazine HCl (Apresoline) 10 mg IVP Q6 PRN PRN Reason: HTN Levothyroxine Sodium (Synthroid) 100 mcg PO 0600 [facility] Last Admin: 10/22/16 05:20 Dose: 100 mcg Lorazepam (Ativan) 2 mg IVP Q6H PRN; Protocol PRN Reason: Anxiety Losartan Potassium (Cozaar) 50 mg PO DAILY [facility] Last Admin: 10/22/16 10:38 Dose: 50 mg Naproxen (Anaprox Ds) 550 mg PO BID [facility] Last Admin: 10/22/16 10:37 Dose: 550 mg Nicotine (Nicoderm Cq) 1 patch TD DAILY [facility] Last Admin: 10/22/16 10:48 Dose: 1 patch Ondansetron HCl (Zofran Inj) 4 mg IVP Q4H PRN PRN Reason: Nausea/Vomiting Oxycodone/Acetaminophen (Percocet 5/325 Mg Tab) 1 tab PO Q6H PRN; Protocol PRN Reason: Pain, moderate (4-7) Stop: 10/23/16 22:48 Last Admin: 10/21/16 21:14 Dose: 1 tab Pantoprazole Sodium (Protonix Ec Tab) 40 mg PO 0600 [facility] Last Admin: 10/22/16 05:20 Dose: 40 mg Potassium Chloride (K-Dur 20 Meq Er Tab) 40 meq PO 0730,1800 [facility] Last Admin: 10/21/16 08:30 Dose: 40 meq - Labs Labs: 10/22/16 06:30 10/22/16 06:30 PT 11.7 Seconds (9.9-11.8) 10/22/16 06:30 INR 1.08 (0.93-1.08) 10/22/16 06:30 APTT 48.3 Seconds (23.7-30.8) H 10/18/16 06:30 - Constitutional Appears: Well, Non-toxic, No Acute Distress - Extremities Exam Additional comments: Bilateral lower extremities exam DERM Right: No open wound is noted. normal skin color. No erythema is noted. No drainage is noted. No sign of acute infection is noted. Left: No open wound is noted. No erythema is noted. No drainage is noted. No sign of acute infection is noted. VASC: Right: Capillary refill time is normal less than 3 seconds to all digits. Skin warm to touch Left: [employer] for Left is <3 seconds to all digits. Skin warm to touch ORTHO: Slight atrophy noted to the musculature of the right lower extremity as compared to that of the Left. Pain on palpation to joints distal to right ankle. No pain is induced for left lower extremity. Drop foot is noted to right lower extremity with plantarflexed foot at the ankle. Decreased Passive and active dorsiflexion is noted at the Right ankle secondary to guarding. - Neurological Exam Neurological Exam: Alert, Awake, Oriented x3 - Psychiatric Exam Psychiatric exam: Normal Affect, Normal Mood Assessment and Plan - Assessment and Plan (Free Text) Assessment: 66 yo female patient with PAD: right lower extremity ischemia, s/p angioplasty and thrombolysis of Right Anterior Tibial artery and femoral-popliteal bypass graft Plan: Patient was seen, evaluated at the bedside TCU this morning with attending, Dr. Franco Labs and vitals reviewed = afebrile, 11.1 WBC Continue Anti-coagulation as per Vascular Continue physical therapy; Right drop foot AFO for patient to assist RLE weakness Continue wearing 1/4" felt heel pad shoe Podiatry will continue to follow in-house <Stephon Franco - Last Filed: 10/23/16 08:04> Objective - Vital Signs/Intake and Output Vital Signs (last 24 hours): Temp Pulse Resp BP Pulse Ox 97.9 F 92 H 20 119/69 99 10/22/16 10:27 10/22/16 10:38 10/22/16 10:27 10/22/16 10:38 10/22/16 10:27 - Labs Labs: 10/22/16 06:30 10/22/16 06:30 PT 11.7 Seconds (9.9-11.8) 10/22/16 06:30 INR 1.08 (0.93-1.08) 10/22/16 06:30 APTT 48.3 Seconds (23.7-30.8) H 10/18/16 06:30 Attending/Attestation - Attestation I have personally seen and examined this patient.: Yes I have fully participated in the care of the patient.: Yes I have reviewed all pertinent clinical information, including history, physical exam and plan: Yes
--- NOTE | 2016-10-22 13:50 | PN ---
DATE: 10/22/2016 SUBJECTIVE: The patient is without chest pain, without shortness of breath. OBJECTIVE: VITAL SIGNS: Blood pressure is 119/70, heart rate in the 90s. NECK: Negative JVD. LUNGS: Without rales. HEART: S1, S2. EXTREMITIES: Without change. LABORATORY DATA: Hemoglobin is 12. Chemistries unremarkable. IMPRESSION: 1. Status post thrombolysis for ischemic lower extremity. 2. Severe peripheral vascular disease. 3. Coronary artery disease. 4. Chronic obstructive pulmonary disease. Given these findings, the patient is for discharge today. We will arrange for an outpatient stress test next week. Jeremias Grider MD
== END 2016-10-22 16:31 | disposition home or self-care (01) | DRG 872 ==
LOC: TRCU 17:16
PROVIDERS: ADMIT Internal Medicine; ATTEND Internal Medicine
PROC: F07Z9FZ Gait Training/Functional Ambulation Treatment using Assistive, Adaptive, Supportive or Protective Equipment (ICD-10-PCS; principal; 2016-10-18)
PROC: F07M6ZZ Therapeutic Exercise Treatment of Musculoskeletal System - Whole Body (ICD-10-PCS; 2016-10-18)
DX: A41.9 Sepsis, unspecified organism (principal); G62.9 Polyneuropathy, unspecified; J44.9 Chronic obstructive pulmonary disease, unspecified; L03.115 Cellulitis of right lower limb; I73.9 Peripheral vascular disease, unspecified; I10 Essential (primary) hypertension; I25.118 Atherosclerotic heart disease of native coronary artery with other forms of angina pectoris; R74.0 Nonspecific elevation of levels of transaminase and lactic acid dehydrogenase [LDH]; E03.9 Hypothyroidism, unspecified; D64.9 Anemia, unspecified; E78.00 Pure hypercholesterolemia, unspecified; E78.5 Hyperlipidemia, unspecified; E87.6 Hypokalemia; F17.200 Nicotine dependence, unspecified, uncomplicated; I25.2 Old myocardial infarction; I99.8 Other disorder of circulatory system; Z79.899 Other long term (current) drug therapy; Z90.49 Acquired absence of other specified parts of digestive tract; Z91.14 Patient's other noncompliance with medication regimen; Z91.19 Patient's noncompliance with other medical treatment and regimen; Z88.6 Allergy status to analgesic agent; Z88.8 Allergy status to other drugs, medicaments and biological substances

== ENCOUNTER 2016-11-11 06:06 | Inpatient (IN) | payer MEDICARE, OTHER ==
[2016-11-08 14:27] VITALS: BMI 29.6
[2016-11-11 06:56] LABS: BASO # 0.04 K/mm3 (0.0-2.0); BASO % 0.5 % (0.0-3.0); EOS % 12.3 % (1.5-5.0); GRAN # 4.46 (1.4-6.5); GRAN % 52.9 % (50.0-68.0); HEMATOCRIT 41.4 % (36.0-48.0); LYMPH # 2.4 (1.2-3.4); LYMPH % 28.8 % (22.0-35.0); MEAN CELL VOLUME 95.6 fl (80.0-105.0); MEAN CORPUSCULAR HEMOGLOBIN 31.9 pg (25.0-35.0); MEAN CORPUSCULAR HGB CONC 33.3 g/dl (31.0-37.0); MONO # 0.5 (0.1-0.6); MONO % 5.5 % (1.0-6.0); WHITE BLOOD COUNT 8.4 10^3/ul (4.5-11.0)
[2016-11-11 06:57] LABS: BLOOD UREA NITROGEN 13 mg/dL (7-21); CALCIUM 9.9 mg/dL (8.4-10.5); CARBON DIOXIDE 28 mmol/L (21-33); CHLORIDE 104 mmol/L (98-107); GFR AFRICAN-AMERICAN > 60; GLUCOSE,RANDOM 112 mg/dL (70-110); LIPASE 68 U/L (23-300); POTASSIUM 3.8 mmol/L (3.6-5.0); SODIUM 145 mmol/L (132-148)
[2016-11-11 06:59] LABS: INR 0.99 (0.93-1.08); PARTIAL THROMBOPLASTIN TIME 27.4 Seconds (23.7-30.8)
[2016-11-11] MEDS ORDERED: Lidocaine 2% Inj (20ml) ONE (07:00)
[2016-11-11] MEDS ORDERED: Phenylephrine 10 mg/ml Inj ONE (07:01)
[2016-11-11] MEDS ORDERED: Midazolam 2 MG/2 ML VIAL ONE ×2 (08:36→08:38)
[2016-11-11] MEDS ORDERED: Iohexol 350mgl/ml 50 ML ONE (08:40)
[2016-11-11] MEDS ORDERED: Iohexol 350 MG/100 ML VIAL ONE (08:40)
[2016-11-11] MEDS ORDERED: Nitroglycerin 50mg in D5W 50 MG/250 ML BOTTLE IV ONE (09:06)
[2016-11-11] MEDS ORDERED: Morphine 2 mg/ml ISec ONE ×3 (09:13→09:46)
[2016-11-11] MEDS ORDERED: Nitroglycerin 50mg in D5W 50 MG/250 ML BOTTLE IV PRN (09:52)
[2016-11-11] MEDS ORDERED: Sodium Chloride 0.9% 1,000 ML IV SCH (10:00)
[2016-11-11 11:07] LABS: ARTERIAL BLOOD GAS HCO3 22.1 mmol/L (21-28); ARTERIAL BLOOD GAS O2 CAPACITY 16.7 mL/dl (16-24); ARTERIAL BLOOD GAS O2 CONTENT 15.5 ML/dl (15-23); ARTERIAL BLOOD GAS PH 7.33 (7.35-7.45); ARTERIAL BLOOD HGB O2 SAT 90.2 % (95.0-98.0); CARBOXYHEMOGLOBIN 2.2 % (0.5-1.5); HHB 6.8 % (0-5); METHEMOGLOBIN 0.7 % (0.0-3.0)
[2016-11-11] MEDS ORDERED: Morphine 2 mg/ml ISec IVP ONE (11:55)
--- NOTE | 2016-11-11 12:06 | CARDCATH ---
PROCEDURE DATE: 11/11/2016 HISTORY: The patient is a 66-year-old woman with a long history of smoking who also suffers from hypertension and hypercholesterolemia who presents with an abnormal stress test. Because of this, cardiac catheterization was recommended. PROCEDURE: Left heart catheterization with coronary aortography and left ventriculogram followed by percutaneous transluminal coronary angioplasty and stent of the circumflex artery. The right femoral artery was cannulated with a 6-Spanish sheath. The procedure was complicated by closure of a moderate-sized obtuse marginal branch percutaneous transluminal coronary angioplasty, which could not be reopened. The findings on catheterization revealed a left ventricle that contracted normally. 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 Her left main artery was unremarkable. The left anterior descending and diagonal vessels revealed intimal irregularities without significant stenosis. There is a large circumflex artery that supplies the right coronary artery distribution with retrograde filling. The circumflex artery gives off a posterior descending artery, which is unremarkable. There was a moderate size #1 obtuse marginal that was noted with a 90% stenosis in the circumflex artery to takeoff of the obtuse marginal. The patient was started on intravenous Angiomax. On the fluoroscopic guide, the guiding catheter was placed in the ostium of the left main artery and 0.014 ATW wire was used to wire the circumflex artery. A second ATW wire was used to wire the obtuse marginal branch. A 3.0 balloon was utilized to predilate the lesion in the obtuse marginal branch. A 3.5 x 9 mm drug-eluting stent was placed and deployed at 14 ounces of pressure in the circumflex artery. The results of the circumflex artery were excellent. However, the obtuse marginal branch was found to be occluded. After given nitroglycerin multiple times, the yarsanism of some flow was seen into the obtuse marginal branch. Multiple attempts at crossing the stent into obtuse marginal branch were unsuccessful due to the marked angulation of the circumflex artery obtuse marginal branch. The patient was given IV nitroglycerin as well as medical therapy as well as pain medications to help with her symptoms. The patient will be transferred to the coronary care unit to continued care. In summary, the procedure was successful PTCA and stent of the circumflex artery with a drug-eluting stent. However, the obtuse marginal branch was close and could not be recrossed to the stent. Cardiac catheterization revealed single-vessel CAD. Normal LV function. 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 Given these findings, the patient will remain on aspirin and Plavix. We will start the patient back on her anticoagulation once the sheath is out. Jeremias Grider MD
[2016-11-11] MEDS ORDERED: Pneumococcal 23-Valent Vaccine IM ONE (13:58)
--- NOTE | 2016-11-11 14:19 | HP ---
HISTORY OF PRESENT ILLNESS: I was called down to the tree tapping laborer by Dr. Grider to admit Raina on my service. She is status post cardiac cath and she is going to go to the ICU. She is presently comfortable, lying flat, just like flat for 6 hours. No chest pain or shortness of breath at this time. She is a 66-year-old female who is having shortness of breath and chest pain, sore throat, walks with a cane in the setting by leg pain and right foot swelling. She is alert and oriented. She has a history of anxiety. No bladder problems. left heart cath. She is going to go to the intensive care unit for further care and treatment. PAST MEDICAL HISTORY: She has a past medical history of having abnormal stress test that let her to the cath today. She has thyroid disease, myocardial infarction, peripheral vascular disease, high cholesterol, hypertension, arthritis, GERD, sore throat, anxiety, a clot in the right leg stent. FAMILY HISTORY: Family history of cancer. Father has throat cancer. There is coronary artery disease in the family with the mother. Father had some heart disease too. PAST SURGICAL HISTORY: Appendectomy, gallbladder, cardiac cath, angiograms, blood clot, she had stents placed. SOCIAL HISTORY: She quit smoking few weeks ago, was a 2-pack a day for many, many years. No alcohol. No drugs. REVIEW OF SYSTEMS: She has no change in hearing or vision. No sore throat, chest pain, or shortness of breath. No abdominal pain. No nausea, no vomiting, no constipation, no diarrhea. She has leg pain and swelling, seems to the most part she tells she is okay. PHYSICAL EXAMINATION VITAL SIGNS: 98.5 temperature, 71 pulse, 138/82 blood pressure, 18 respiratory rate, 98% O2 sat on room air. HEENT: Head is atraumatic, normocephalic. Throat is moist. HEART: Regular rate. LUNGS: Decreased breath sounds, but clear auscultation. ABDOMEN: Soft, obese, nontender. Positive bowel sounds. EXTREMITIES: Trace edema. +1 edema. NEUROLOGIC: Alert and oriented x3. LABORATORY DATA: She has 8.4 white count, 13.8 hemoglobin, 41.4 hematocrit, with 294 platelets. INR is 0.99, 145 sodium, potassium is 3.8, BUN 13, creatinine 0.8, GFR is greater than 60, sugar is 112, calcium is 9.9, lipase is 68. MEDICATIONS: She is currently going to be on Ecotrin, Lipitor, Lopressor, Plavix, IV fluid, and Zofran. ASSESSMENT AND PLAN: We will check her labs tomorrow. I am going to put her on her diet 2 gram sodium. We will watch her closely and if she does well, possibly she will to be discharge tomorrow, she is going to be in intensive care unit tonight. She has severe coronary artery disease status post cardiac cath done placement with Dr. Grider. Kevin Hidalgo DO MTDD
--- NOTE | 2016-11-11 17:54 | CP.CCUPN ---
CCU Subjective - Physician Review Events Since Last Encounter (Free Text): 11/11/16 17:51 66 y/o F who presented to the ICU after cardiac cath. Had MARLA placed in the CIRC. Obtuse Aurelia could not be stented. R Groin sheath in place, Mild hypotension and hypoxia noted on arrival. CCU Objective - Vital Signs / Intake & Output Vital Signs (Last 4 hours): Vital Signs Temp Pulse Resp BP Pulse Ox 11/11/16 16:44 97.6 F 11/11/16 16:40 74 12 99 11/11/16 16:30 74 10 L 116/64 99 11/11/16 16:20 76 13 100 11/11/16 16:15 75 30 H 113/70 99 11/11/16 16:10 75 11 L 100 11/11/16 16:00 78 17 134/63 99 11/11/16 15:50 80 24 99 11/11/16 15:45 80 11 L 107/39 L 100 11/11/16 15:40 78 100 11/11/16 15:30 80 19 123/79 100 11/11/16 15:20 72 19 100 11/11/16 15:15 73 14 106/63 100 11/11/16 15:10 75 16 100 11/11/16 15:00 70 14 118/62 100 11/11/16 14:50 72 14 100 11/11/16 14:45 75 15 111/61 100 11/11/16 14:40 76 18 100 11/11/16 14:30 77 18 116/51 L 100 11/11/16 14:20 75 12 99 11/11/16 14:17 80 23 133/55 L 99 11/11/16 14:10 74 18 99 11/11/16 14:00 75 9 L 119/56 L 99 Intake and Output (Last 8hrs): Intake & Output 11/11/16 11/11/16 11/11/16 06:59 14:59 22:59 Intake Total 5 Balance 5 Weight 195 lb Intake: IV 5 Other: Voiding Method Bedpan - Physical Exam Head: Positive for: Atraumatic Pupils: Positive for: PERRL Extroacular Muscles: Positive for: EOMI Mouth: Positive for: Moist Mucous Membranes Pharnyx: Positive for: Normal Neck: Positive for: Normal Range of Motion Respiratory/Chest: Positive for: Good Air Exchange Cardiovascular: Positive for: Murmurs, Normal S1, S2 Abdomen: Positive for: Normal Bowel Sounds Upper Extremity: Positive for: Normal Inspection Neurological: Positive for: GCS=15, CN II-XII Intact, Speech Normal Skin: Positive for: Warm Psychiatric: Positive for: Alert, Oriented x 3 - Medications Active Medications: Active Medications Generic Name Dose Route Start Last Admin Trade Name Freq PRN Reason Stop Dose Admin Aspirin 81 mg 11/11/16 10:00 11/11/16 10:26 Ecotrin PO Not Given DAILY [facility] Atorvastatin Calcium 40 mg 11/11/16 17:00 Lipitor PO DIN FAWAD Clopidogrel Bisulfate 75 mg 11/11/16 10:00 11/11/16 10:26 Plavix PO Not Given DAILY [facility] Sodium Chloride 1,000 mls @ 100 mls/hr 11/11/16 10:00 11/11/16 10:33 Sodium Chloride 0.9% IV 11/11/16 18:00 100 mls/hr .Q10H FWAAD Administration Nitroglycerin/Dextrose 50 mg in 250 mls @ 6 mls/hr 11/11/16 09:52 11/11/16 12 :02 Nitroglycerin 50 Mg/250 Ml D5w IV 15 mcg/min .Q24H PRN 4.5 mls/hr Titrate per protocol Titration Protocol 20 MCG/MIN Metoprolol Tartrate 25 mg 11/11/16 10:00 11/11/16 11:02 Lopressor PO Not Given BID [facility] Ondansetron HCl 4 mg 11/11/16 10:39 11/11/16 10:49 Zofran Inj IVP 4 mg Q6H PRN Administration Nausea/Vomiting - Patient Studies Lab Studies: Lab Studies 11/11/16 11/11/16 11/11/16 Range/Units 11:00 06:30 06:30 WBC (4.5-11.0) 10^3/ul RBC (3.5-6.1) 10^6/uL Hgb (12.0-16.0) g/dL Hct (36.0-48.0) % MCV (80.0-105.0) fl MCH (25.0-35.0) pg MCHC (31.0-37.0) g/dl RDW (11.5-14.5) % Plt Count (120.0-450.0) 10^3/uL MPV (7.0-11.0) fl Gran % (50.0-68.0) % Lymph % (Auto) (22.0-35.0) % [place] % (Auto) (1.0-6.0) % Eos % (Auto) (1.5-5.0) % Baso % (Auto) (0.0-3.0) % Gran # (1.4-6.5) Lymph # (1.2-3.4) [place] # (0.1-0.6) Eos # (0.0-0.7) Baso # (0.0-2.0) K/mm3 PT (9.9-11.8) Seconds INR (0.93-1.08) APTT (23.7-30.8) Seconds pCO2 42 (35-45) mm/Hg pO2 58.0 L (80-100) mm/Hg HCO3 22.1 (21-28) mmol/L ABG pH 7.33 L (7.35-7.45) ABG Total CO2 23.4 (22-28) mmol.L ABG O2 Saturation 93.0 L (95-98) % ABG O2 Content 15.5 (15-23) ML/dl ABG Base Excess -3.7 L (-2.0-3.0) mmol/L ABG Hemoglobin 12.2 (11.7-17.4) g/dL ABG Carboxyhemoglobin 2.2 H (0.5-1.5) % POC ABG HHb (Measured) 6.8 H (0-5) % ABG Methemoglobin 0.7 (0.0-3.0) % ABG O2 Capacity 16.7 (16-24) mL/dl Hgb O2 Saturation 90.2 L (95.0-98.0) % FiO2 50.0 % Sodium 145 (132-148) mmol/L Potassium 3.8 (3.6-5.0) mmol/L Chloride 104 (98-107) mmol/L Carbon Dioxide 28 (21-33) mmol/L Anion Gap 17 (10-20) BUN 13 (7-21) mg/dL Creatinine 0.8 (0.5-1.4) mg/dL Est GFR ( Amer) > 60 Est GFR (Non-Af Amer) > 60 Random Glucose 112 H (70-110) mg/dL Calcium 9.9 (8.4-10.5) mg/dL Lipase 68 (23-300) U/L Blood Type O NEGATIVE Antibody Screen Negative BBK History Checked Patient has bt 11/11/16 11/11/16 Range/Units 06:30 06:30 WBC 8.4 D (4.5-11.0) 10^3/ul RBC 4.33 (3.5-6.1) 10^6/uL Hgb 13.8 (12.0-16.0) g/dL Hct 41.4 (36.0-48.0) % MCV 95.6 (80.0-105.0) fl MCH 31.9 (25.0-35.0) pg MCHC 33.3 (31.0-37.0) g/dl RDW 14.0 (11.5-14.5) % Plt Count 294 (120.0-450.0) 10^3/uL MPV 9.0 (7.0-11.0) fl Gran % 52.9 (50.0-68.0) % Lymph % (Auto) 28.8 (22.0-35.0) % [place] % (Auto) 5.5 (1.0-6.0) % Eos % (Auto) 12.3 H (1.5-5.0) % Baso % (Auto) 0.5 (0.0-3.0) % Gran # 4.46 (1.4-6.5) Lymph # 2.4 (1.2-3.4) [place] # 0.5 (0.1-0.6) Eos # 1.0 H (0.0-0.7) Baso # 0.04 (0.0-2.0) K/mm3 PT 10.7 (9.9-11.8) Seconds INR 0.99 (0.93-1.08) APTT 27.4 (23.7-30.8) Seconds pCO2 (35-45) mm/Hg pO2 (80-100) mm/Hg HCO3 (21-28) mmol/L ABG pH (7.35-7.45) ABG Total CO2 (22-28) mmol.L ABG O2 Saturation (95-98) % ABG O2 Content (15-23) ML/dl ABG Base Excess (-2.0-3.0) mmol/L ABG Hemoglobin (11.7-17.4) g/dL ABG Carboxyhemoglobin (0.5-1.5) % POC ABG HHb (Measured) (0-5) % ABG Methemoglobin (0.0-3.0) % ABG O2 Capacity (16-24) mL/dl Hgb O2 Saturation (95.0-98.0) % FiO2 % Sodium (132-148) mmol/L Potassium (3.6-5.0) mmol/L Chloride (98-107) mmol/L Carbon Dioxide (21-33) mmol/L Anion Gap (10-20) BUN (7-21) mg/dL Creatinine (0.5-1.4) mg/dL Est GFR ( Amer) Est GFR (Non-Af Amer) Random Glucose (70-110) mg/dL Calcium (8.4-10.5) mg/dL Lipase (23-300) U/L Blood Type Antibody Screen BBK History Checked Laboratory Results - last 24 hr 11/11/16 11/11/16 11/11/16 06:30 06:30 06:30 WBC 8.4 D RBC 4.33 Hgb 13.8 Hct 41.4 MCV 95.6 MCH 31.9 MCHC 33.3 RDW 14.0 Plt Count 294 MPV 9.0 Gran % 52.9 Lymph % (Auto) 28.8 [place] % (Auto) 5.5 Eos % (Auto) 12.3 H Baso % (Auto) 0.5 Gran # 4.46 Lymph # 2.4 [place] # 0.5 Eos # 1.0 H Baso # 0.04 PT 10.7 INR 0.99 APTT 27.4 pCO2 pO2 HCO3 ABG pH ABG Total CO2 ABG O2 Saturation ABG O2 Content ABG Base Excess ABG Hemoglobin ABG Carboxyhemoglobin POC ABG HHb (Measured) ABG Methemoglobin ABG O2 Capacity Hgb O2 Saturation FiO2 Sodium 145 Potassium 3.8 Chloride 104 Carbon Dioxide 28 Anion Gap 17 BUN 13 Creatinine 0.8 Est GFR ( Amer) > 60 Est GFR (Non-Af Amer) > 60 Random Glucose 112 H Calcium 9.9 Lipase 68 Blood Type Antibody Screen BBK History Checked 11/11/16 11/11/16 06:30 11:00 WBC RBC Hgb Hct MCV MCH MCHC RDW Plt Count MPV Gran % Lymph % (Auto) [place] % (Auto) Eos % (Auto) Baso % (Auto) Gran # Lymph # [place] # Eos # Baso # PT INR APTT pCO2 42 pO2 58.0 L HCO3 22.1 ABG pH 7.33 L ABG Total CO2 23.4 ABG O2 Saturation 93.0 L ABG O2 Content 15.5 ABG Base Excess -3.7 L ABG Hemoglobin 12.2 ABG Carboxyhemoglobin 2.2 H POC ABG HHb (Measured) 6.8 H ABG Methemoglobin 0.7 ABG O2 Capacity 16.7 Hgb O2 Saturation 90.2 L FiO2 50.0 Sodium Potassium Chloride Carbon Dioxide Anion Gap BUN Creatinine Est GFR ( Amer) Est GFR (Non-Af Amer) Random Glucose Calcium Lipase Blood Type O NEGATIVE Antibody Screen Negative BBK History Checked Patient has bt EKG/Cardiology Studies: Cardiology / EKG Studies 11/11/16 09:58 ELECTROCARDIOGRAM Urgent Comment: 12 lead EKG upon arrival in unit Reason For Exam: post ptca 11/12/16 10:00 ELECTROCARDIOGRAM DAILY Comment: Reason For Exam: chest pain Review of Systems - EENT Eyes: UNREMARKABLE Ears: UNREMARKABLE - Breasts Breasts: UNREMARKABLE - Cardiovascular Cardiovascular: UNREMARKABLE - Respiratory Respiratory: UNREMARKABLE Critical Care Progress Note - Nutrition Nutrition: Nutrition Category Date Time Status Heart Healthy Diet [DIET] Diets 11/11/16 Breakfast Ordered Assessment/Plan - Assessment and Plan (Free Text) Assessment: 66 y/o F s/p Cardiac Cath CIRC MARLA placed. Obtuse Aurelia could not be stented. Placed on Asprin, plavix, statin B-padmini to be started. Nitro-G drip started and titrated to comfort from CP. None right now. R gorin sheath check. Cardiology following. cc time 35 min
--- NOTE | 2016-11-11 18:45 | CARD ---
APPROVED REPORT EKG Measurement Heart [id number] <Conclusion> Normal sinus rhythm ST elevation, consider lateral injury or acute infarct ACUTE OR Abnormal ECG
[2016-11-12 00:40] VITALS: TEMP 98.1
[2016-11-12] MEDS ORDERED: Pantoprazole 40 mg EC Tab PO SCH (06:00)
[2016-11-12 07:04] LABS: BASO # 0.02 K/mm3 (0.0-2.0); BASO % 0.2 % (0.0-3.0); EOS # 0.2 (0.0-0.7); EOS % 2.2 % (1.5-5.0); GRAN # 6.14 (1.4-6.5); GRAN % 68.3 % (50.0-68.0); HEMATOCRIT 36.5 % (36.0-48.0); LYMPH % 21.8 % (22.0-35.0); MEAN CELL VOLUME 97.1 fl (80.0-105.0); MEAN CORPUSCULAR HEMOGLOBIN 31.1 pg (25.0-35.0); MEAN CORPUSCULAR HGB CONC 32.1 g/dl (31.0-37.0); MEAN PLATELET VOLUME 9.4 fl (7.0-11.0); MONO # 0.7 (0.1-0.6); MONO % 7.5 % (1.0-6.0); RED CELL DISTRIBUTION WIDTH 14.3 % (11.5-14.5)
[2016-11-12 07:31] LABS: ALKALINE PHOSPHATASE 85 U/L (38-126); ALT/SGPT 77 U/L (7-56); AST/SGOT 408 U/L (14-36); BILIRUBIN,TOTAL 0.5 mg/dL (0.2-1.3); BLOOD UREA NITROGEN 9 mg/dL (7-21); CALCIUM 8.7 mg/dL (8.4-10.5); CARBON DIOXIDE 32 mmol/L (21-33); CHLORIDE 103 mmol/L (98-107); GFR AFRICAN-AMERICAN > 60; GLUCOSE,RANDOM 103 mg/dL (70-110); MAGNESIUM 1.9 mg/dL (1.7-2.2); PHOSPHOROUS 3.2 mg/dL (2.5-4.5); SODIUM 141 mmol/L (132-148); TOTAL PROTEIN 6.4 g/dL (5.8-8.3)
--- NOTE | 2016-11-12 09:31 | CP.CCUPN ---
<Sweetie Ford - Last Filed: 11/12/16 09:41> CCU Subjective - Physician Review Events Since Last Encounter (Free Text): 11/12/16 09:29 AKINS overnight, no other complaints, CP resolved Subjective (Free Text): 11/12/16 09:29 Critical care progress note for Dr. Nora Ford, PGY-1 Pt S & E at bedside. Pt reports CP resolve overnight, off nitro drip, no SOB. Denies N/V/F/C, ab pain, other complaints. Critical Care Time Spent (in minutes): 35 CCU Objective - Vital Signs / Intake & Output Vital Signs (Last 4 hours): Vital Signs Pulse Resp BP Pulse Ox 11/12/16 07:10 63 17 100 11/12/16 07:00 64 19 97/63 L 100 11/12/16 06:50 62 15 99 11/12/16 06:40 64 15 99 11/12/16 06:30 63 15 99 11/12/16 06:20 61 15 100 11/12/16 06:10 61 15 99 11/12/16 06:00 65 18 99/54 L 99 11/12/16 05:50 86 36 H 97 11/12/16 05:40 67 20 99 11/12/16 05:30 64 14 100 Intake and Output (Last 8hrs): Intake & Output 11/11/16 11/12/16 11/12/16 22:59 06:59 14:59 Intake Total 1078 806 21 Output Total 700 500 Balance 378 306 21 Intake: IV 838 506 21 Left Antecubital 838 451 Oral 240 300 Output: Urine 700 500 Urine, Voided 700 500 - Physical Exam Head: Positive for: Atraumatic Pupils: Positive for: PERRL Extroacular Muscles: Positive for: EOMI Conjunctiva: Positive for: Normal Mouth: Positive for: Moist Mucous Membranes Pharnyx: Positive for: Normal Nose (External): Positive for: Atraumatic Neck: Positive for: Normal Range of Motion Respiratory/Chest: Positive for: Clear to Auscultation, Good Air Exchange. Negative for: Respiratory Distress, Accessory Muscle Use Cardiovascular: Positive for: Murmurs, Normal S1, S2 Abdomen: Positive for: Normal Bowel Sounds. Negative for: Tenderness, Distention, Peritoneal Signs Upper Extremity: Positive for: Normal Inspection. Negative for: Edema Lower Extremity: Positive for: Normal Inspection. Negative for: Edema Neurological: Positive for: GCS=15, CN II-XII Intact, Speech Normal Skin: Positive for: Warm, Dry, Normal Color, Other (Right upper thigh/groin w/ dressing in place- C/D/I, no palpable hematoma under dressing). Negative for: Rashes Psychiatric: Positive for: Alert, Oriented x 3, Normal Insight, Normal Concentration - Medications Active Medications: Active Medications Generic Name Dose Route Start Last Admin Trade Name Freq PRN Reason Stop Dose Admin Acetaminophen 650 mg 11/11/16 23:33 11/11/16 23:42 Tylenol 325mg Tab PO 650 mg Q6H PRN Administration Fever >100.4 F Aspirin 81 mg 11/11/16 10:00 11/11/16 10:26 Ecotrin PO Not Given DAILY FAWAD Atorvastatin Calcium 40 mg 11/11/16 17:00 11/11/16 18:14 Lipitor PO 40 mg DIN FAWAD Administration Clopidogrel Bisulfate 75 mg 11/11/16 10:00 11/11/16 10:26 Plavix PO Not Given DAILY FAWAD Nitroglycerin/Dextrose 50 mg in 250 mls @ 6 mls/hr 11/11/16 09:52 11/12/16 07 :00 Nitroglycerin 50 Mg/250 Ml D5w IV 0 mcg/min .Q24H PRN 0 mls/hr Titrate per protocol Titration Protocol 20 MCG/MIN Metoprolol Tartrate 25 mg 11/11/16 10:00 11/11/16 18:14 Lopressor PO 25 mg BID FAWAD Administration Ondansetron HCl 4 mg 11/11/16 10:39 11/11/16 10:49 Zofran Inj IVP 4 mg Q6H PRN Administration Nausea/Vomiting Pantoprazole Sodium 40 mg 11/12/16 06:00 11/12/16 07:49 Protonix Ec Tab PO 40 mg 0600 FAWAD Administration - Patient Studies Lab Studies: Lab Studies 11/12/16 11/12/16 11/11/16 Range/Units 05:30 05:30 11:00 WBC 9.0 (4.5-11.0) 10^3/ul RBC 3.76 (3.5-6.1) 10^6/uL Hgb 11.7 L D (12.0-16.0) g/dL Hct 36.5 (36.0-48.0) % MCV 97.1 (80.0-105.0) fl MCH 31.1 (25.0-35.0) pg MCHC 32.1 (31.0-37.0) g/dl RDW 14.3 (11.5-14.5) % Plt Count 259 (120.0-450.0) 10^3/uL MPV 9.4 (7.0-11.0) fl Gran % 68.3 H (50.0-68.0) % Lymph % (Auto) 21.8 L (22.0-35.0) % [place] % (Auto) 7.5 H (1.0-6.0) % Eos % (Auto) 2.2 (1.5-5.0) % Baso % (Auto) 0.2 (0.0-3.0) % Gran # 6.14 (1.4-6.5) Lymph # 2.0 (1.2-3.4) [place] # 0.7 H (0.1-0.6) Eos # 0.2 (0.0-0.7) Baso # 0.02 (0.0-2.0) K/mm3 pCO2 42 (35-45) mm/Hg pO2 58.0 L (80-100) mm/Hg HCO3 22.1 (21-28) mmol/L ABG pH 7.33 L (7.35-7.45) ABG Total CO2 23.4 (22-28) mmol.L ABG O2 Saturation 93.0 L (95-98) % ABG O2 Content 15.5 (15-23) ML/dl ABG Base Excess -3.7 L (-2.0-3.0) mmol/L ABG Hemoglobin 12.2 (11.7-17.4) g/dL ABG Carboxyhemoglobin 2.2 H (0.5-1.5) % POC ABG HHb (Measured) 6.8 H (0-5) % ABG Methemoglobin 0.7 (0.0-3.0) % ABG O2 Capacity 16.7 (16-24) mL/dl Hgb O2 Saturation 90.2 L (95.0-98.0) % FiO2 50.0 % Sodium 141 (132-148) mmol/L Potassium 4.0 (3.6-5.0) mmol/L Chloride 103 (98-107) mmol/L Carbon Dioxide 32 (21-33) mmol/L Anion Gap 10 (10-20) BUN 9 (7-21) mg/dL Creatinine 0.8 (0.5-1.4) mg/dL Est GFR ( Amer) > 60 Est GFR (Non-Af Amer) > 60 Random Glucose 103 (70-110) mg/dL Calcium 8.7 (8.4-10.5) mg/dL Phosphorus 3.2 (2.5-4.5) mg/dL Magnesium 1.9 (1.7-2.2) mg/dL Total Bilirubin 0.5 (0.2-1.3) mg/dL AST 408 H D (14-36) U/L ALT 77 H (7-56) U/L Alkaline Phosphatase 85 (38-126) U/L Total Protein 6.4 (5.8-8.3) g/dL Albumin 3.2 (3.0-4.8) g/dL Globulin 3.2 gm/dL Albumin/Globulin Ratio 1.0 L (1.1-1.8) Laboratory Results - last 24 hr 11/11/16 11/12/16 11/12/16 11:00 05:30 05:30 WBC 9.0 RBC 3.76 Hgb 11.7 L D Hct 36.5 MCV 97.1 MCH 31.1 MCHC 32.1 RDW 14.3 Plt Count 259 MPV 9.4 Gran % 68.3 H Lymph % (Auto) 21.8 L [place] % (Auto) 7.5 H Eos % (Auto) 2.2 Baso % (Auto) 0.2 Gran # 6.14 Lymph # 2.0 [place] # 0.7 H Eos # 0.2 Baso # 0.02 pCO2 42 pO2 58.0 L HCO3 22.1 ABG pH 7.33 L ABG Total CO2 23.4 ABG O2 Saturation 93.0 L ABG O2 Content 15.5 ABG Base Excess -3.7 L ABG Hemoglobin 12.2 ABG Carboxyhemoglobin 2.2 H POC ABG HHb (Measured) 6.8 H ABG Methemoglobin 0.7 ABG O2 Capacity 16.7 Hgb O2 Saturation 90.2 L FiO2 50.0 Sodium 141 Potassium 4.0 Chloride 103 Carbon Dioxide 32 Anion Gap 10 BUN 9 Creatinine 0.8 Est GFR ( Amer) > 60 Est GFR (Non-Af Amer) > 60 Random Glucose 103 Calcium 8.7 Phosphorus 3.2 Magnesium 1.9 Total Bilirubin 0.5 AST 408 H D ALT 77 H Alkaline Phosphatase 85 Total Protein 6.4 Albumin 3.2 Globulin 3.2 Albumin/Globulin Ratio 1.0 L EKG/Cardiology Studies: Cardiology / EKG Studies 11/11/16 09:58 ELECTROCARDIOGRAM Urgent Comment: 12 lead EKG upon arrival in unit Reason For Exam: post ptca 11/12/16 10:00 ELECTROCARDIOGRAM DAILY Comment: Reason For Exam: chest pain Review of Systems - Review of Systems All systems: reviewed and no additional remarkable complaints except - Constitutional Constitutional: absent: Fever, Chills - EENT Eyes: UNREMARKABLE Ears: UNREMARKABLE - Cardiovascular Cardiovascular: UNREMARKABLE - Respiratory Respiratory: Dyspnea on Exertion (occasional) - Gastrointestinal Gastrointestinal: UNREMARKABLE. absent: Abdominal Pain, Nausea - Musculoskeletal Musculoskeletal: UNREMARKABLE - Integumentary Integumentary: UNREMARKABLE - Neurological Neurological: UNREMARKABLE Critical Care Progress Note - Extremities/Vascular Does the Patient have a Central Venous Catheter?: No Does the Patient need a Central Venous Catheter?: No Does the Patient have a Reveles Catheter?: No Does the Patient need a Reveles Catheter?: No - Prophylaxis GI Prophylaxis GI: PPI - Prophylaxis DVT Prophylaxis DVT: SCDs - Nutrition Nutrition: Nutrition Category Date Time Status Heart Healthy Diet [DIET] Diets 11/11/16 Breakfast Ordered Assessment/Plan - Assessment and Plan (Free Text) Assessment: 66F w/PMH sig for thyroid disease, RI, PVD, HLD, HTN, arthritis, GERD, RLE stent w/clot admitted to ICU s/p cardiac cath with hypotension and bradycardia post intervention- Vital signs improved overnight, pt at baseline, stable. Plan: Neuro AOx3 AKINS overnight Tylenol PRN Stable CVS s/p cardic cath Off nitro drip ASA Lipitor Plavix Lopressor FU EKG HOB elevated Cardio following Pulm Hx recent Tobacco abuse Venti Mask PRN O2 via NC Sao2 99% Target Sao2> 88% GI Zofran HHD Voids freely ID Afebrile No leukocytosis Monitor MSK OOBTC w/assistance PT/OT GI/DVT ppx Protonix SCDs Dispo Stable D/c home after cardio sees pt as per primary Will DW attending Liliana, PGY-1 - Date & Time Date: 11/12/16 Time: 07:00 <Brenna MCCULLOUGH,Stephen H - Last Filed: 11/12/16 14:38> CCU Objective - Vital Signs / Intake & Output Vital Signs (Last 4 hours): Vital Signs Pulse Resp BP Pulse Ox 11/12/16 11:20 79 23 94 L 11/12/16 11:10 73 21 93 L 11/12/16 11:00 68 17 117/65 93 L 11/12/16 10:50 67 19 93 L 11/12/16 10:40 74 17 97 Intake and Output (Last 8hrs): Intake & Output 11/11/16 11/12/16 11/12/16 22:59 06:59 14:59 Intake Total 1078 806 21 Output Total 700 500 Balance 378 306 21 Weight 195 lb Intake: IV 838 506 21 Left Antecubital 838 451 Oral 240 300 Output: Urine 700 500 Urine, Voided 700 500 - Patient Studies Lab Studies: Lab Studies 11/12/16 11/12/16 Range/Units 05:30 05:30 WBC 9.0 (4.5-11.0) 10^3/ul RBC 3.76 (3.5-6.1) 10^6/uL Hgb 11.7 L D (12.0-16.0) g/dL Hct 36.5 (36.0-48.0) % MCV 97.1 (80.0-105.0) fl MCH 31.1 (25.0-35.0) pg MCHC 32.1 (31.0-37.0) g/dl RDW 14.3 (11.5-14.5) % Plt Count 259 (120.0-450.0) 10^3/uL MPV 9.4 (7.0-11.0) fl Gran % 68.3 H (50.0-68.0) % Lymph % (Auto) 21.8 L (22.0-35.0) % [place] % (Auto) 7.5 H (1.0-6.0) % Eos % (Auto) 2.2 (1.5-5.0) % Baso % (Auto) 0.2 (0.0-3.0) % Gran # 6.14 (1.4-6.5) Lymph # 2.0 (1.2-3.4) [place] # 0.7 H (0.1-0.6) Eos # 0.2 (0.0-0.7) Baso # 0.02 (0.0-2.0) K/mm3 Sodium 141 (132-148) mmol/L Potassium 4.0 (3.6-5.0) mmol/L Chloride 103 (98-107) mmol/L Carbon Dioxide 32 (21-33) mmol/L Anion Gap 10 (10-20) BUN 9 (7-21) mg/dL Creatinine 0.8 (0.5-1.4) mg/dL Est GFR ( Amer) > 60 Est GFR (Non-Af Amer) > 60 Random Glucose 103 (70-110) mg/dL Calcium 8.7 (8.4-10.5) mg/dL Phosphorus 3.2 (2.5-4.5) mg/dL Magnesium 1.9 (1.7-2.2) mg/dL Total Bilirubin 0.5 (0.2-1.3) mg/dL AST 408 H D (14-36) U/L ALT 77 H (7-56) U/L Alkaline Phosphatase 85 (38-126) U/L Total Protein 6.4 (5.8-8.3) g/dL Albumin 3.2 (3.0-4.8) g/dL Globulin 3.2 gm/dL Albumin/Globulin Ratio 1.0 L (1.1-1.8) Laboratory Results - last 24 hr 11/12/16 11/12/16 05:30 05:30 WBC 9.0 RBC 3.76 Hgb 11.7 L D Hct 36.5 MCV 97.1 MCH 31.1 MCHC 32.1 RDW 14.3 Plt Count 259 MPV 9.4 Gran % 68.3 H Lymph % (Auto) 21.8 L [place] % (Auto) 7.5 H Eos % (Auto) 2.2 Baso % (Auto) 0.2 Gran # 6.14 Lymph # 2.0 [place] # 0.7 H Eos # 0.2 Baso # 0.02 Sodium 141 Potassium 4.0 Chloride 103 Carbon Dioxide 32 Anion Gap 10 BUN 9 Creatinine 0.8 Est GFR ( Amer) > 60 Est GFR (Non-Af Amer) > 60 Random Glucose 103 Calcium 8.7 Phosphorus 3.2 Magnesium 1.9 Total Bilirubin 0.5 AST 408 H D ALT 77 H Alkaline Phosphatase 85 Total Protein 6.4 Albumin 3.2 Globulin 3.2 Albumin/Globulin Ratio 1.0 L EKG/Cardiology Studies: Cardiology / EKG Studies 11/12/16 10:00 ELECTROCARDIOGRAM DAILY Comment: Reason For Exam: chest pain Critical Care Progress Note - Nutrition Nutrition: Nutrition Category Date Time Status Heart Healthy Diet [DIET] Diets 11/11/16 Breakfast Ordered Attending/Attestation - Attestation I have personally seen and examined this patient.: Yes I have fully participated in the care of the patient.: Yes I have reviewed all pertinent clinical information: Yes Notes (Text): 11/12/16 14:37 Post cardiac cath w/ MARLA placed. Hypotension and CP resolved. Feels good no symptoms this morning. plan to d.c this afternoon cc time 35 min
--- NOTE | 2016-11-12 11:06 | DS ---
HISTORY OF PRESENT ILLNESS: She was status post cardiac cath with Dr. Grider yesterday. She was put in intensive care unit. She was stented. She is doing well this morning. No chest pain, no shortness of breath, but she has been lying flat in bed and has not gotten out of bed. We will get physical therapy to see if she could walk well and out of bed to chair. I am hoping to discharge her today if it is okay with Dr. Grider. DISCHARGE MEDICATIONS: She will go home on Ecotrin, Lipitor, Lopressor, Plavix, and Protonix. PHYSICAL EXAMINATION: GENERAL: She is alert. She is comfortable. She is hungry, awaiting breakfast. VITAL SIGNS: 98.1 temp, 71 pulse, 99/54 blood pressure, 17 respiratory rate, 100% of O2 sat. HEENT: Head is normocephalic, atraumatic. Throat is moist. NECK: Supple. HEART: Regular rate. LUNGS: Decreased breath sounds, but clear. ABDOMEN: Soft, obese, and nontender. Positive bowel sounds. EXTREMITIES: No edema. LABORATORY DATA: She has 141 sodium, potassium is 4, BUN 9, creatinine 0.8, GFR is greater than 60, sugar is 103, calcium is 8.7, phosphorus is 3.2, magnesium 1.9, total bilirubin is 0.5, AST was 408, ALT was 77, alkaline phosphatase 85, total protein 6.4, albumin is 3.2. White count is 9, hemoglobin 11.7, hematocrit 36.5, platelets are 259. Awaiting for Dr. Grider who has to see her this morning. I am hoping we can discharge her. She will follow up with a primary care doctor, and she was here for CAD with cath placement, hypertension, high cholesterol, and high LFTs. Kevin Hidalgo DO
[2016-11-12 11:47] VITALS: BP 117/65; PULSE 79; RESP 23; O2SAT 94
--- NOTE | 2016-11-12 11:55 | PN ---
DATE: 11/12/2016 CARDIOLOGY FOLLOWUP NOTE The patient has been chest pain-free off of nitroglycerin, blood pressure 105/56, heart rate in the 70s. Neck: Negative JVD. Lungs: Without rales. Heart: Reveal S1, S2 Extremities: Without edema. Hemoglobin is 11.7. Chemistries, BUN and creatinine unremarkable. IMPRESSION: 1. Status post PTCA and stent of the circumflex artery with a drug-eluting stent with transient occlusion of the side branch obtuse marginal branch which clinically as has returned flow. 2. Severe peripheral vascular disease. 3. Coronary artery disease. 4. Hypercholesterolemia. 5. Hypertension. Given these findings, the patient is clinically stable. She is stable for discharge if she is able to ambulate without symptoms. I have restarted her on her Eliquis. Her anticoagulation should include Eliquis and Plavix without aspirin given the increased risk of triple therapy. Follow up and instructions have been given to the patient in detail. Jeremias Grider MD
--- NOTE | 2016-11-13 01:12 | CARD ---
APPROVED REPORT EKG Measurement Heart [id number] <Conclusion> Normal sinus rhythm Low voltage QRS T wave abnormality, consider lateral ischemia Prolonged QT Abnormal ECG
== END 2016-11-12 13:19 | disposition home or self-care (01) | DRG 247 ==
LOC: CATH 06:06 → CCU 09:59
PROVIDERS: ADMIT Internal Medicine Cardiovascular Disease; ATTEND Internal Medicine Cardiovascular Disease
PROC: 027034Z Dilation of Coronary Artery, One Artery with Drug-eluting Intraluminal Device, Percutaneous Approach (ICD-10-PCS; principal; 2016-11-11)
PROC: 4A023N7 Measurement of Cardiac Sampling and Pressure, Left Heart, Percutaneous Approach (ICD-10-PCS; 2016-11-11)
PROC: B2151ZZ Fluoroscopy of Left Heart using Low Osmolar Contrast (ICD-10-PCS; 2016-11-11)
PROC: B2111ZZ Fluoroscopy of Multiple Coronary Arteries using Low Osmolar Contrast (ICD-10-PCS; 2016-11-11)
DX: I25.10 Atherosclerotic heart disease of native coronary artery without angina pectoris (principal); I95.9 Hypotension, unspecified; R09.02 Hypoxemia; E78.00 Pure hypercholesterolemia, unspecified; I10 Essential (primary) hypertension; F41.9 Anxiety disorder, unspecified; K21.9 Gastro-esophageal reflux disease without esophagitis; I73.9 Peripheral vascular disease, unspecified; I25.2 Old myocardial infarction; Z87.891 Personal history of nicotine dependence; Z82.49 Family history of ischemic heart disease and other diseases of the circulatory system; Z80.8 Family history of malignant neoplasm of other organs or systems

== ENCOUNTER 2018-05-22 10:31 | Outpatient (CLI) | payer MEDICARE | END 2018-05-22 10:32 | disposition home or self-care (01) | LOC: RAD 10:31 ==